=== PATIENT | female | born 1950 | race Caucasian/White ===

== ENCOUNTER → 2017-11-26 | Outpatient (CLI) | payer MEDICARE, OTHER ==
[~2017-11-26] MED LIST: ALPRAZOLAM1 MG PO; ASPIRIN CHEW81 MG PO; CIPRO500 MG PO; CRESTOR10 MG PO; DEXILANT60 MG PO; DILAUDID2 MG PO; FOSINOPRIL SODI10 MG PO; HYDROMORPHONE HC2 MG PO; LIPITOR40 MG PO; LISINOPRIL10 MG PO; LYRICA25 MG PO; MONOPRIL PO; NORCO 5-325 TA1 EACH PO; OXYCODONE HCL10 MG PO; PANTOPRAZOLE SO40 MG PO; PHENERGAN PO; PHENERGAN SUPP25 MG PO; PREVACID30 MG PO; REGLAN10 MG PO; ULTRAM50 MG PO; XANAX0.5 MG PO; XANAX2 MG PO; Z.0.GLUCOPHAGE500 MG PO
--- NOTE | 2017-11-26 12:56 | Diagnostic Imaging Report ---
EXAMINATION: Head CT HISTORY: Perfusion off, sleep walking, memory loss, COMPARISON: None. TECHNIQUE: Multidetector axial images were obtained without contrast from the foramen magnum to the vertex . The images were reconstructed using brain and bone algorithms. Thin section brain images were reformatted into coronal and sagittal planes. Intravenous contrast: None. Motion/streaking artifact limits the evaluation of the skull base and posterior cranial fossa. FINDINGS: Parenchyma: 1. A few scattered white matter hypodensities, most likely nonspecific chronic microvascular ischemic changes. 2. No mass or hemorrhage. No CT evidence of acute territorial vascular insult. Extra-axial spaces:No abnormal density. No extra-axial fluid collections Brain volume: Normal for age. Ventricles: No hydrocephalus or displacement. Arteries: No density suggestive of thrombus. Dural sinuses: No abnormal density. Extra-axial spaces: No abnormal density. Foramen magnum: No mass, Chiari malformation, or basilar invagination. Sella: No obvious mass. Paranasal/mastoid sinuses: Imaged portions unremarkable. Skull/Scalp: No lytic or blastic lesions. No fractures. IMPRESSION: Mild chronic microvascular ischemic changes. Otherwise no intracranial abnormalities, particularly no mass, hemorrhage or acute cortical infarct. Signed by: Dr. Ban Acuna M.D. on 11/26/2017 12:52 PM
== END ==
LOC: CT 11:12
PROVIDERS: ATTEND Family Medicine
DX: F22 Delusional disorders (principal); R41.0 Disorientation, unspecified
CPT/HCPCS: 70450

== ENCOUNTER → 2017-12-31 | Outpatient (CLI) | payer MEDICARE, OTHER ==
--- NOTE | 2017-12-31 08:24 | Diagnostic Imaging Report ---
PROCEDURE:US LIVER COMPARISON:12/01/2013, CT abdomen and pelvis 04/01/2015. INDICATIONS:Hepatic steatosis TECHNIQUE: Alfonso-scale and color doppler transverse and longitudinal images of the right upper quadrant of the abdomen were obtained. FINDINGS: Liver: 16.6 cm in right mid-clavicular line. Diffusely increased parenchymal echogenicity. No masses. Main portal vein: 1.5 cm in caliber, enlarged with hepatopedal flow. Gallbladder: Surgically removed. Common Bile Duct: 0.8 cm in caliber, mildly dilated, likely related to prior cholecystectomy. Right kidney: 10.9 cm. Normal renal cortical echogenicity. No solid masses or hydronephrosis. Pancreas: The visualized portions are unremarkable. Inferior vena cava: Patent Aorta: Fusiform aneurysmal dilatation of the distal abdominal aorta measuring 3.8 cm AP by 3.9 cm transverse (3.4 cm AP by 3.[address] cm transverse on comparison CT from March 2015). Ascites: None in the right upper quadrant of the abdomen. CONCLUSION: Hepatomegaly with hepatic steatosis. Mild interval increase in size of fusiform infrarenal abdominal aortic aneurysm, now measuring 3.9 cm in maximum transverse dimension. Surveillance cross-sectional imaging is suggested as indicated. Dictated by: Geovanni Mast M.D. on 12/31/2017 at 8:27 Electronically approved by: Geovanni Mast M.D. on 12/31/2017 at 8:27
== END ==
LOC: US 07:12
PROVIDERS: ATTEND Internal Medicine Gastroenterology
DX: K76.0 Fatty (change of) liver, not elsewhere classified (principal)
CPT/HCPCS: 76705

== ENCOUNTER → 2018-03-03 | Outpatient (CLI) | payer MEDICARE, OTHER ==
[~2018-03-03] MED LIST changes: +IOPAMIDOL 370 MG/ML 200 ML INFUS..BTL INJ ONE; +SODIUM CHLORIDE 0.9% 50ML 50 ML ONE
[2018-03-03 08:15] LABS: BLOOD UREA NITROGEN 13 mg/dL (7-26); BUN/CREATININE RATIO 17 (6-25); CREATININE, SERUM 0.78 mg/dL (0.57-1.11); EST GLOMERULAR FILTRATION RATE > 60 ML/MIN (60-)
--- NOTE | 2018-03-03 09:18 | Diagnostic Imaging Report ---
PROCEDURE: CT ABDOMEN AND PELVIS WITH CONTRAST TECHNIQUE: The abdomen and pelvis were scanned utilizing a multidetector helical scanner from the diaphragm to the lesser trochanter after the IV administration of 100 cc of Isovue 370 and the oral administration of water. Coronal and sagittal multiplanar reformations were obtained. COMPARISON: 05/06/2017 INDICATIONS: abdomen pain FINDINGS: LOWER THORAX: Normal. HEPATOBILIARY: No focal hepatic lesion. Hepatic parenchyma is diffusely hypoattenuating compatible with steatosis. No intrahepatic biliary ductal dilatation. Status post cholecystectomy with stable mild prominence of the common bile duct. SPLEEN: No splenomegaly. PANCREAS: No focal masses or ductal dilatation. ADRENALS: No adrenal nodules. KIDNEYS/URETERS: Stable 1.7 cm exophytic cyst arising from the upper pole of the left kidney. No additional focal renal lesion. No hydronephrosis. No calculus. PELVIC ORGANS/BLADDER: The urinary bladder is incompletely distended but otherwise unremarkable. The uterus is not identified and has presumably been removed. No adnexal mass. PERITONEUM / RETROPERITONEUM: No ascites. No pneumoperitoneum. LYMPH NODES: No pelvic sidewall, retroperitoneal, or mesenteric lymphadenopathy. VESSELS: Marginal interval increase in size of infrarenal abdominal aortic aneurysm, now measuring 4.2 cm AP by 4 cm transverse (previously 3.9 cm AP by 3.9 cm transverse). As before, the aneurysm extends to the bifurcation and measures approximately 7.3 cm in aggregate cranial caudal dimension. Concentric mural thrombus is unchanged There are 2 left renal arteries and a single right renal artery with an early bifurcation. Portal vein, splenic vein, and the central superior mesenteric vein are patent. Patent bilateral external iliac stents with extensive atherosclerotic disease. 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 Unchanged, patent superior mesenteric arterial stent. GI TRACT: The distal large bowel is collapsed and poorly evaluated. No gross wall thickening or distention. The appendix is normal. Mild prominence of the gastric rugal folds as a consequence of under distention. No small bowel dilatation to suggest obstruction. BONES AND SOFT TISSUES: No focal soft tissue abnormalities. Multiple soft tissue injection granulomata in the bilateral gluteal subcutaneous fat. Bone island in the right sacral ala. Multilevel degenerative disc changes and facet arthropathy of the lumbar spine. IMPRESSION: No acute intra-abdominal or pelvic CT abnormalities. Hepatic steatosis. Marginal interval increase in size of infrarenal abdominal aortic aneurysm, now measuring 4.1 cm in maximum diameter. Continued surveillance is suggested. Dictated by: Geovanni Mast M.D. on 03/03/2018 at 9:23 Electronically approved by: Geovanni Mast M.D. on 03/03/2018 at 9:23
== END ==
LOC: CT 07:29
PROVIDERS: ATTEND Internal Medicine Gastroenterology
DX: R10.9 Unspecified abdominal pain (principal)
CPT/HCPCS: 36415; 74177; 82565; 84520; Q9967; 76937

== ENCOUNTER 2018-04-25 08:43 | Observation (INO) | payer MEDICARE, OTHER ==
[~2018-04-25] VITALS: Ht 307.3 cm; Wt 73.5 kg
[~2018-04-25 08:43] MED LIST changes: -IOPAMIDOL 370 MG/ML 200 ML INFUS..BTL INJ ONE; -SODIUM CHLORIDE 0.9% 50ML 50 ML ONE
[2018-04-25 09:32] LABS: BASOPHILS # (AUTO) 0.1 (0.0-0.1); BASOPHILS % 0.6 % (0.0-1.0); EOSINOPHILS # (AUTO) 0.1 (0.0-0.4); EOSINOPHILS % 0.7 % (0.0-6.0); HEMATOCRIT 46.6 % (34.2-44.1); HEMOGLOBIN 15.4 g/dL (12.0-16.0); LYMPHOCYTES # (AUTO) 2.4 (1.0-3.2); LYMPHOCYTES % 25.1 % (18.0-39.1); MEAN CORPUSCULAR HEMOGLOBIN 30.4 pg (28-32); MEAN CORPUSCULAR VOLUME 91.9 fL (81-99); MONOCYTES # (AUTO) 0.8 (0.2-0.8); MONOCYTES % 8.2 % (4.4-11.3); NEUTROPHILS # (AUTO) 6.1 (2.1-6.9); NEUTROPHILS % 64.7 % (38.7-80.0); PLATELET COUNT 211 x10e3/uL (140-360); RED BLOOD COUNT 5.07 x10e6/uL (3.6-5.1); RED CELL DISTRIBUTION WIDTH 14.8 % (11.7-14.4)
[2018-04-25 09:49] LABS: INR 0.9
--- NOTE | 2018-04-25 09:50 | Diagnostic Imaging Report ---
Examination: Single AP view of the chest. COMPARISON: Multiple prior chest radiograph INDICATION: Generalized weakness and confusion, altered mental status DISCUSSION: Lines/tubes: None. Lungs: The lungs are well inflated and clear. No pneumonia or pulmonary edema. Pleura: No pleural effusion or pneumothorax. Heart and mediastinum: The heart and the mediastinum are unremarkable. Bones and soft tissues: No acute bony abnormalities. IMPRESSION: 1. No acute cardiopulmonary abnormalities. Signed by: Dr. Kenneth Wallace M.D. on 04/25/2018 9:48 AM
[2018-04-25 09:51] LABS: ALANINE AMINOTRANSFERASE 27 IU/L (0-55); ALBUMIN 4.3 g/dL (3.5-5.0); ALBUMIN/GLOBULIN RATIO 1.1 (0.8-2.0); ALKALINE PHOSPHATASE 114 IU/L (40-150); AMYLASE 38 U/L (25-125); ANION GAP 18.9 mmol/L (8-16); BLOOD UREA NITROGEN 14 mg/dL (7-26); BUN/CREATININE RATIO 11 (6-25); CALCIUM 11.5 mg/dL (8.4-10.2); CARBON DIOXIDE 26 mmol/L (22-29); CHLORIDE 97 mmol/L (98-107); CREATINE KINASE 42 IU/L (29-168); CREATININE, SERUM 1.25 mg/dL (0.57-1.11); EST GLOMERULAR FILTRATION RATE 43 ML/MIN (60-); GLUCOSE 111 mg/dL (74-118); LIPASE 20 U/L (8-78); MAGNESIUM 1.8 MG/DL (1.3-2.1); POTASSIUM 3.9 mmol/L (3.5-5.1); SODIUM 138 mmol/L (136-145)
[2018-04-25 09:59] LABS: B-TYPE NATRIURETIC PEPTIDE2 27.7 pg/mL (0-100)
[2018-04-25 10:01] LABS: PARTIAL THROMBOPLASTIN TIME 26.5 seconds (23.8-35.5)
[2018-04-25 10:11] LABS: THYROID STIMULATING HORMONE 1.836 uIU/mL (0.350-4.940)
[2018-04-25 10:56] LABS: BACTERIA,URINE MODERATE /HPF; BILIRUBIN,URINE NEGATIVE (NEGATIVE); CLARITY,URINE CLOUDY (CLEAR); COLOR,URINE YELLOW (YELLOW); EPITHELIAL CELLS,URINE MODERATE /LPF; KETONES,URINE NEGATIVE (NEGATIVE); LEUKOCYTE ESTERASE ,URINE TRACE (NEGATIVE); NITRITE,URINE NEGATIVE (NEGATIVE); PROTEIN,URINE DIPSTICK NEGATIVE (NEGATIVE); URINE UROBILINOGEN 0.2 mg/dL (0.2 - 1)
[2018-04-25 10:57] LABS: RBC,URINE 0-5 /HPF (0-5)
--- NOTE | 2018-04-25 11:19 | Diagnostic Imaging Report ---
ADDENDUM #1 The preliminary report was reviewed and a final report issued by Dr. Acuna neuroradiologist on 04/25/2018 at 12:14 PM. Signed by: Dr. Ban Acuna M.D. on 04/25/2018 12:14 PM ORIGINAL REPORT History:67-year-old female with chronic liver disease, weakness and confusion Comparison studies: 11/26/2017 Technique: Axial images were obtained from the skull base to the vertex. Coronal and sagittal images reconstructed from the axial data. Dose modulation, iterative reconstruction, and/or weight based adjustment of the mA/kV was utilized to reduce the radiation dose to as low as reasonably achievable. Intravenous contrast: None Findings: Scalp/skull: No abnormalities. Extra-axial spaces: No masses. No fluid collections. Brain sulci: Moderately prominent. Ventricles: Mild compensatory dilatation. No hydrocephalus. Parenchyma: Mild hypodensities in the supratentorial white matter are small vessel ischemic changes. No masses, hemorrhage, acute or chronic cortical vascular insults. Sellar/suprasellar region: No abnormalities. Craniocervical junction: Patent foramen magnum. No Chiari one malformation. Incidental findings: Atherosclerotic calcifications in the carotid siphons and vertebral arteries at the level of the foramen magnum . Impression: No acute abnormalities. Chronic findings: 1. Mild to moderate generalized volume loss. 2. Mild supratentorial white matter small vessel ischemic changes. Signed by: Reggie Fiore MD on 04/25/2018 11:17 AM
[2018-04-25] MEDS ORDERED: NITROFURANTOIN MACROCRYSTALS 100 MG CAP PO ONE (12:30)
[2018-04-25] MEDS: NITROFURANTOIN MACROCRYSTALS 100 MG CAP PO SCH ×2 (13:28→16:49)
[2018-04-25 14:05] VITALS: BP 171/95
[2018-04-25] MEDS ORDERED: LISINOPRIL 10 MG TAB PO SCH (15:00)
[2018-04-25] MEDS ORDERED: PROMETHAZINE HCL 25 MG TAB PO PRN (15:15)
[2018-04-25] MEDS: ONDANSETRON HCL INJ 2 MG/ML VIAL IV PRN ×2 (15:27→20:26)
[2018-04-25] MEDS: MORPHINE SULFATE 2 MG/ML SYR IV PRN ×2 (15:27→20:26)
[2018-04-25] MEDS: FOSINOPRIL SODIUM 10 MG TAB PO SCH (15:27)
[2018-04-25 16:20] VITALS: BP 179/86
[2018-04-25 16:49] VITALS: BP 156/98
[2018-04-25] MEDS: PANTOPRAZOLE SOD 40 MG TABEC PO SCH (16:49)
[2018-04-25] MEDS ORDERED: METOCLOPRAMIDE HCL 10 MG TAB PO SCH (17:00)
[2018-04-25] MEDS ORDERED: SODIUM CHLORIDE 0.9% 250ML 250 ML ONE (17:24)
[2018-04-25] MEDS: PROMETHAZINE 25MG/ NS 50ML (IV) IV PRN (17:25)
[2018-04-25] MEDS: SIMVASTATIN 40 MG TAB PO SCH (20:24)
[2018-04-25 20:36] VITALS: BP 128/67
[2018-04-25 20:54] VITALS: BP 128/67
[2018-04-26] VITALS (8 sets, daily range): BP systolic 94–110; BP diastolic 53–78
[2018-04-26] MEDS: ALPRAZOLAM 1 MG TAB PO PRN ×2 (00:35→09:20)
[2018-04-26] MEDS: MORPHINE SULFATE 2 MG/ML SYR IV PRN ×3 (02:34→23:11)
[2018-04-26] MEDS: PROMETHAZINE 25MG/ NS 50ML (IV) IV PRN ×3 (02:34→22:22)
[2018-04-26 05:42] LABS: BASOPHILS # (AUTO) 0.1 (0.0-0.1); BASOPHILS % 0.6 % (0.0-1.0); EOSINOPHILS # (AUTO) 0.1 (0.0-0.4); EOSINOPHILS % 1.2 % (0.0-6.0); HEMATOCRIT 42.5 % (34.2-44.1); LYMPHOCYTES % 44.1 % (18.0-39.1); MEAN CORPUSCULAR HEMOGLOBIN 30.6 pg (28-32); MEAN CORPUSCULAR HGB CONC 32.9 g/dL (31-35); MEAN CORPUSCULAR VOLUME 92.8 fL (81-99); MONOCYTES # (AUTO) 0.8 (0.2-0.8); MONOCYTES % 8.3 % (4.4-11.3); NEUTROPHILS # (AUTO) 4.1 (2.1-6.9); PLATELET COUNT 176 x10e3/uL (140-360); RED BLOOD COUNT 4.58 x10e6/uL (3.6-5.1); RED CELL DISTRIBUTION WIDTH 14.8 % (11.7-14.4)
[2018-04-26 05:59] LABS: ALBUMIN 3.8 g/dL (3.5-5.0); ALBUMIN/GLOBULIN RATIO 1.2 (0.8-2.0); ANION GAP 16.8 mmol/L (8-16); CALCIUM 9.6 mg/dL (8.4-10.2); CREATININE, SERUM 1.21 mg/dL (0.57-1.11); POTASSIUM 3.8 mmol/L (3.5-5.1)
[2018-04-26] MEDS ORDERED: POTASSIUM CHLORIDE 20 MEQ TAB CR PO STA (06:46)
[2018-04-26] MEDS: SODIUM CHLORIDE 0.9% 1000ML 1,000 ML IV SCH ×2 (08:00→23:11)
[2018-04-26] MEDS: PANTOPRAZOLE SOD 40 MG TABEC PO SCH ×2 (08:00→16:45)
[2018-04-26] MEDS: NITROFURANTOIN MACROCRYSTALS 100 MG CAP PO SCH ×2 (08:00→16:45)
[2018-04-26] MEDS: FOSINOPRIL SODIUM 10 MG TAB PO SCH (08:23)
[2018-04-26] MEDS ORDERED: FOSINOPRIL SODIUM 10 MG TAB PO SCH (09:00)
[2018-04-26] MEDS ORDERED: LISINOPRIL 10 MG TAB PO SCH (09:00)
[2018-04-26] MEDS: ONDANSETRON HCL INJ 2 MG/ML VIAL IV PRN (17:50)
[2018-04-26] MEDS: SIMVASTATIN 40 MG TAB PO SCH (20:07)
[2018-04-27] VITALS (8 sets, daily range): BP systolic 101–120; BP diastolic 53–61
[2018-04-27] MEDS: PROMETHAZINE 25MG/ NS 50ML (IV) IV PRN ×4 (03:28→21:37)
[2018-04-27] MEDS: MORPHINE SULFATE 2 MG/ML SYR IV PRN ×4 (03:28→21:37)
[2018-04-27] MEDS ORDERED: BISACODYL 5 MG TAB EC PO PRN (07:15)
[2018-04-27] MEDS: NITROFURANTOIN MACROCRYSTALS 100 MG CAP PO SCH ×2 (08:01→17:00)
[2018-04-27] MEDS: PANTOPRAZOLE SOD 40 MG TABEC PO SCH ×2 (08:01→16:30)
[2018-04-27] MEDS: FOSINOPRIL SODIUM 10 MG TAB PO SCH (08:02)
[2018-04-27] MEDS: ALPRAZOLAM 1 MG TAB PO PRN (08:13)
[2018-04-27] MEDS ORDERED: POLYETHYLENE GLYCOL 3350 17 GM PACK PO SCH (17:00)
[2018-04-27] MEDS: SIMVASTATIN 40 MG TAB PO SCH (20:29)
[2018-04-27] MEDS ORDERED: ALPRAZOLAM 1 MG TAB PO SCH (21:00)
[2018-04-28] VITALS: BP 112/59
[2018-04-28] MEDS: MORPHINE SULFATE 2 MG/ML SYR IV PRN ×2 (01:40→06:20)
[2018-04-28 04:00] VITALS: BP 132/71
[2018-04-28 05:40] LABS: BASOPHILS % 0.5 % (0.0-1.0); EOSINOPHILS # (AUTO) 0.1 (0.0-0.4); EOSINOPHILS % 1.4 % (0.0-6.0); HEMATOCRIT 35.5 % (34.2-44.1); HEMOGLOBIN 11.5 g/dL (12.0-16.0); LYMPHOCYTES # (AUTO) 2.4 (1.0-3.2); LYMPHOCYTES % 43.4 % (18.0-39.1); MEAN CORPUSCULAR HEMOGLOBIN 30.6 pg (28-32); MEAN CORPUSCULAR HGB CONC 32.4 g/dL (31-35); MEAN CORPUSCULAR VOLUME 94.4 fL (81-99); MONOCYTES # (AUTO) 0.4 (0.2-0.8); MONOCYTES % 7.3 % (4.4-11.3); NEUTROPHILS # (AUTO) 2.6 (2.1-6.9); NEUTROPHILS % 46.9 % (38.7-80.0); PLATELET COUNT 124 x10e3/uL (140-360); RED BLOOD COUNT 3.76 x10e6/uL (3.6-5.1); RED CELL DISTRIBUTION WIDTH 14.1 % (11.7-14.4)
[2018-04-28 06:11] LABS: ANION GAP 12.7 mmol/L (8-16); BLOOD UREA NITROGEN 9 mg/dL (7-26); BUN/CREATININE RATIO 11 (6-25); CALCIUM 8.3 mg/dL (8.4-10.2); CARBON DIOXIDE 22 mmol/L (22-29); CHLORIDE 108 mmol/L (98-107); CREATININE, SERUM 0.84 mg/dL (0.57-1.11); EST GLOMERULAR FILTRATION RATE > 60 ML/MIN (60-); GLUCOSE 122 mg/dL (74-118); POTASSIUM 3.7 mmol/L (3.5-5.1); SODIUM 139 mmol/L (136-145)
[2018-04-28] MEDS: PROMETHAZINE 25MG/ NS 50ML (IV) IV PRN (06:20)
[2018-04-28 07:40] VITALS: BP 137/91
== END 2018-04-28 09:01 | disposition home or self-care (01) ==
LOC: ER 08:43 → ERHOLD 13:00 → MED/SURG3 14:02
PROVIDERS: ADMIT Family Medicine; ATTEND Family Medicine
DX: N30.00 Acute cystitis without hematuria (principal); K59.03 Drug induced constipation; R53.1 Weakness; R11.2 Nausea with vomiting, unspecified; I12.9 Hypertensive chronic kidney disease with stage 1 through stage 4 chronic kidney disease, or unspecified chronic kidney disease; N18.3 Chronic kidney disease, stage 3 (moderate); I10 Essential (primary) hypertension; E78.00 Pure hypercholesterolemia, unspecified; E83.52 Hypercalcemia; G89.29 Other chronic pain; Z88.0 Allergy status to penicillin; Z88.8 Allergy status to other drugs, medicaments and biological substances; T40.605A Adverse effect of unspecified narcotics, initial encounter; F41.9 Anxiety disorder, unspecified; R41.82 Altered mental status, unspecified
CPT/HCPCS: 36415 ×3; 70450; 71045; 80048; 80053 ×2; 81001; 82140; 82150; 82550; 82553; 83605; 83690; 83735; 83880; 84443; 84484; 85025 ×3; 85610; 85730; 87086; 93005; 96361; 97116; 97161; 99284; G0378 ×4; G8978; G8979; G8980; J2270 ×4; J2405 ×2; J2550 ×4; J7030; J7050; S0164 ×4

== ENCOUNTER 2018-06-14 04:29 | Inpatient (IN) | payer MEDICARE, OTHER ==
[~2018-06-14] VITALS: Ht 154.9 cm; Wt 75.8 kg
--- OUTSIDE RECORDS SUMMARY | 2018-06-14 04:33 | XMS REPORT | Continuity of Care Document ---
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 Active Problem 02/13/2018 [facility] Saavedra Acute pain of left shoulder Active Problem 02/13/2018 [facility] Saavedra Nausea Active Problem 02/13/2018 Mar[facility] Saavedra NAUSEA WITH VOMITING, UNSPECIFIED Active [facility] RIGHT UPPER QUADRANT PAIN Active [facility] ABDOMINAL DISTENSION (GASEOUS) Active [facility] Medications Medication Details Route Status Patient Instructions Ordering Provider Order Date Source Tramadol HCl 2 tablet as needed Orally Active 50 MG Orally every 8 hrs Mary 02/22/2018 Marquis Saavedra Tramadol HCl 2 tablet as needed Orally Active 50 MG Orally every 8 hrs Mary 12/21/2017 Marquis Saavedra Promethazine HCl 1 tablet as needed Orally Active 25 MG Orally TID Mary 06/03/2017 Marquis Saavedra Fentanyl 1 patch to skin Transdermal Active 50 MCG/HR Transdermal Q72H Mary 03/07/2017 Marquis Saavedra Promethazine HCl 1 tablet as needed Orally Active 25 MG Orally TID Mary 03/06/2017 [facility]quis Saavedra Tramadol HCl 2 tablet as needed Orally Active 50 MG Orally every 8 hrs Mary 03/05/2017 Marquis Saavedra Tramadol HCl 1 tablet as needed Orally Active 50 MG Orally every 6 hrs Mary 12/23/2016 Marquis Saavedra Fentanyl 1 patch to skin Transdermal Active 25 MCG/HR Transdermal Mary 12/23/2016 Marquis Saavedra Dexilant 1 capsule Orally Active 60 MG Orally Once a day [facility] Marquis Saavedra Fosinopril Sodium 1 tablet Orally Active 10 MG Orally Once a day [facility] Marquis Saavedra Xanax 1 tablet Orally Active 1 MG Orally Twice a day [facility] Marquis Saavedra Promethazine HCl 1 tablet as needed Orally Active 12.5 MG Orally daily [facility] Marquis Saavedra Promethazine HCl 1 tablet as needed Orally Active 25 MG Orally TID [facility] Marquis Saavedra Tramadol HCl 1 tablet as needed Orally Active 50 MG Orally every 6 hrs [facility] Marquis Saavedra Atorvastatin Calcium 1 tablet Orally Active 40 MG Orally Once a day [facility] Marquis Saavedra Phenergan 1 tablet as needed Orally Active 25 MG Orally TID [facility] Marquis Saavedra Fentanyl 1 patch to skin Transdermal Active 50 MCG/HR Transdermal Q72H [facility] Marquis Saavedra Fosinopril Sodium 1 tablet Orally Active 10 MG Orally Once a day [facility] Marquisdaisy Saavedra Dexilant 1 capsule Orally Active 60 MG Orally Once a day [facility] Marquisdaisy Saavedra Promethazine HCl 1 tablet as needed Orally Active 12.5 MG Orally daily [facility] Marquis Saavedra Fentanyl 1 patch to skin Transdermal Active 50 MCG/HR Transdermal Q72H [facility] Marquis Saavedra Xanax 1 tablet Orally Active 1 MG Orally Twice a day [facility] Marquis Saavedra Atorvastatin Calcium 1 tablet Orally Active 40 MG Orally Once a day [facility] Marquis Saavedra Tramadol HCl 2 tablet as needed Orally Active 50 MG Orally every 8 hrs [facility] Marquis Lewer Dilaudid 1 tablet as needed Orally Active 4 MG Orally every 6 hrs [facility] Marquis Saavedra Oxycodone HCl 1 tablet as needed Orally Active 10 MG Orally every 8 hrs PRN [facility] Marquis Saavedra Promethazine HCl 1 tablet as needed Orally Active 25 MG Orally every 12 hrs [facility] Marquis Saavedra Allergies, Adverse Reactions, Alerts Substance Category Reaction Severity Reaction type Status Date Reported Comments Source PENICILLEN Adverse Reaction anaphylaxis Adverse Reaction Active 10/22/2017 Mar[facility] Saavedra KEFLEX Adverse Reaction anaphylaxis Adverse Reaction Active 10/22/2017 [facility] Sa[facility] Immunizations Immunization Date Given Site Status Last Updated Comments Source Results Order Name Results Value Reference Range Date Interpretation Comments Source Abdomen/Pelvis CTA Abdomen/Pelvis CTA Patient Name: KATELYNN BECKMAN : 1950; Age: 67 years Female MR: [id number] Study: Abdomen/Pelvis CTA 05/11/2018 6:58 AM CDT CLINICAL INDICATION: - K75.81 Nonalcoholic steatohepatitis (VARELA); R14.0 Abdominal distension (gaseous); R10.11 Right upper quadrant pain COMPARISON: CT on 02/06/2015 TECHNIQUE: Multidetector CTA imaging of the abdomen and pelvis WITH IV contrast. Coronal and sagittal reconstructions were generated and reviewed. 3-D postprocessing reformations were also obtained. CT imaging performed at this location utilizes radiation dose optimization techniques which include one or more of the following: -Automated exposure control -Adjustment of the mA and/or kV according to patient size -Use of iterative reconstruction technique Radiation dose: 1108 mGycm IV contrast: 100 cc of Omnipaque 350 FINDINGS: Vascular: Moderate aortoiliac atherosclerosis. Fusiform infrarenal abdominal aortic aneurysm, measuring 4.1 x 4 cm in maximum dimension and containing concentric mural thrombus. The aneurysm extends approximately 7.3 cm in craniocaudal dimension and terminates at the iliac bifurcation. The celiac artery is widely patent. The superior mesenteric artery stent is patent as well as the distal SMA branches. The PARUL is excluded by the aneurysm. Three left and two right renal arteries appear patent. High-grade focal stenosis and nonflow-limiting intimal flap within the proximal left common iliac artery. The bilateral iliac artery stents are patent. Lower thorax: Clear. Hepatobiliary: Nodular liver contour with relative hypertrophy of the left hepatic lobe. Subtle hypervascular lesion (8 mm) within hepatic segment 5 (image 98) without clear washout on the delayed phase. Dilated main portal vein (18 mm) and few perisplenic varices. Cholecystectomy. Pancreas: No focal mass or ductal dilatation. Spleen: No splenomegaly. Adrenals: No nodules. Kidneys: No hydronephrosis or renal stones. Stable bilateral renal cysts. Pelvic organs: Absent uterus. Unremarkable bladder. Peritoneum/Retroperitoneum: No free air or free fluid. Lymph nodes: No lymphadenopathy. GI: No significant bowel thickening or dilatation. Few sigmoid diverticula. The appendix appears unremarkable. Bones and soft tissues: Degenerative changes of the lumbar spine. IMPRESSION: Infrarenal abdominal aortic aneurysm (4.1 x 4 cm) extends approximately 7.3 cm in craniocaudal dimension and terminates at the iliac bifurcation. High-grade focal stenosis and nonflow-limiting intimal flap within the proximal left common iliac artery. Patent SMA and bilateral iliac artery stents. Cirrhosis associated with a dilated main portal vein and few perisplenic varices. Subcentimeter hypervascular lesion within hepatic segment 5 raises the possibility of hepatocellular carcinoma although no clear washout is seen on the delayed phase. Other considerations would include a small arteriovenous or perfusion anomaly. Recommend MRI liver protocol for further characterization. SL: [id number] 05/11/2018 - - Read by: Anjel Anguiano MD Dictated Date/time: 05/11/18 08:58 Electronically Signed by: Anjel Anguiano MD 05/11/18 09:14 FINAL REPORT [facility] Abdomen w IV contrast CT Abdomen w IV contrast CT CT abdomen with IV contrast, Feb 06, 2015 02:21:14 PM CLINICAL HISTORY: Abdominal pain; 571.5 Cirrhosis of Liver without Mention of Alcohol ; See Clinic Indication TECHNIQUE: Routine 5 mm thick axial images of the abdomen are obtained with oral and IV contrast. Routine 5 minute delayed images were obtained. Coronal and sagittal reformations were created. COMPARISON: None FINDINGS: Visualized lung bases are clear. Mild diffuse fatty infiltration of liver with early mild nodular contour to the liver is present. Spleen, pancreas, adrenal glands, and kidneys are normal. Couple of small left renal cysts are present. The ureters are unremarkable. Partially distended bladder is unremarkable. Gallbladder is surgically absent. Few distal left colonic diverticula are present. Otherwise, the stomach and visualized intestine loops are grossly unremarkable. No free air or free fluid is visualized within the abdominal cavity. No mesenteric or retroperitoneal lymphadenopathy is present. Distal abdominal aortic mild aneurysm measuring 3.5 cm is present, with moderate circumferential mixed plaque formation, but which creates a less than 25% short segment endoluminal stenosis. SMA proximal stent is present. Left common iliac to external iliac arterial stent is present. Bones are unremarkable. IMPRESSION: 1. Mild diffuse fatty infiltration with possible early cirrhosis. 2. Mild distal left colonic diverticulosis. SL: 14 02/06/2015 - - Read by: Hemant Nichols MD Dictated Date/time: 02/06/15 16:52 Electronically Signed by: Hemant Nichols MD 02/06/15 16:59 FINAL REPORT [facility] Vital Signs Vital Sign Value Date Comments Source Weight 149 10/22/2017 [facility]ra Height 60 10/22/2017 [facility] Saavedra Temperature Oral (F) 97.4 F 10/22/2017 Mar[facility] Saavedra Heart Rate 72 10/22/2017 Mar[facility] Saavedra Diastolic (mm Hg) 80 10/22/2017 Mar[facility] Saavedra Systolic (mm Hg) 150 10/22/2017 [facility] Saavedra Weight 146 07/23/2017 Mar[facility] Saavedra Height 60 07/23/2017 [facility] Saavedra Temperature Oral (F) 98.2 F 07/23/2017 [facility] Saavedra Heart Rate 84 07/23/2017 Mar[facility] Saavedra Diastolic (mm Hg) 80 07/23/2017 Marquis Saavedra Systolic (mm Hg) 142 07/23/2017 [facility] Saavedra Weight 150.7 03/05/2017 [facility] Saavedra Height 60 03/05/2017 [facility] Saavedra Temperature Oral (F) 97.8 F 03/05/2017 [facility] Saavedra Heart Rate 76 03/05/2017 [facility] Saavedra Diastolic (mm Hg) 80 03/05/2017 Marquis Saavedra Systolic (mm Hg) 132 03/05/2017 [facility] Saavedra Weight 147.5 02/05/2017 [facility] Saavedra Height 60 02/05/2017 Marquis Saavedra Temperature Oral (F) 98.5 F 02/05/2017 [facility] Saavedra Diastolic (mm Hg) 74 02/05/2017 Mar[facility] Saavedra Systolic (mm Hg) 142 02/05/2017 [facility] Saavedra Weight 143 12/23/2016 Marquis Saavedra Height 60 12/23/2016 Marquis Saavedra Temperature Oral (F) 97.5 F 12/23/2016 Marquis Saavedra Heart Rate 84 12/23/2016 Marquis Saavedra Diastolic (mm Hg) 74 12/23/2016 Marquis Saavedra Systolic (mm Hg) 122 12/23/2016 Marquis Saavedra Weight 152.7 08/28/2016 Marquis Saavedra Height 60 08/28/2016 Marquis Saavedra Temperature Oral (F) 97.5 F 08/28/2016 Marquis Saavedra Diastolic (mm Hg) 60 08/28/2016 Marquis Saavedra Systolic (mm Hg) 100 08/28/2016 Marquis Saavedra Encounters Location Location Details Encounter Type Encounter Number Reason For Visit Attending Provider ADM Date DC Date Status Source [facility] [id number] Malick Mathew 02/06/2015 02/07/2015 [facility] Mauro Saavedra MD [facility] [id number] 08/28/2016 08/28/2016 Marquis Saavedra Procedures Procedure Code Date Perfomer Comments Source
--- OUTSIDE RECORDS SUMMARY | 2018-06-14 04:33 | XMS REPORT | Summary of Care ---
Author Organization Unknown Address Unknown Phone Unavailable Encounter [facility] Encntr_alias(GARCÍA) [id number] Date(s): 02/06/15 - 02/06/15 [facility] [address] [place] [address]- Discharge Disposition: Home Physician Attending: Malick Mathew MD Physician Admitting: Malick Mathew MD Physician_Referring: Malick Mathew MD Vital Signs No data available for this section Problem List No data available for this section Allergies, Adverse Reactions, Alerts No data available for this section Medications No data available for this section Results No data available for this section Immunizations No data available for this section Procedures No data available for this section Social History No data available for this section Assessment and Plan No data available for this section
[2018-06-14] MEDS ORDERED: ONDANSETRON HCL INJ 2 MG/ML VIAL IV STA (04:38)
[2018-06-14] MEDS ORDERED: SODIUM CHLORIDE 0.9% 1000ML 1,000 ML IV ONE (04:45)
[2018-06-14 05:30] LABS: BASOPHILS % 0.4 % (0.0-1.0); EOSINOPHILS % 0.2 % (0.0-6.0); HEMATOCRIT 44.4 % (34.2-44.1); HEMOGLOBIN 14.8 g/dL (12.0-16.0); LYMPHOCYTES # (AUTO) 1.4 (1.0-3.2); LYMPHOCYTES % 15.2 % (18.0-39.1); MEAN CORPUSCULAR HEMOGLOBIN 30.2 pg (28-32); MEAN CORPUSCULAR HGB CONC 33.3 g/dL (31-35); MEAN CORPUSCULAR VOLUME 90.6 fL (81-99); MONOCYTES # (AUTO) 0.4 (0.2-0.8); MONOCYTES % 4.1 % (4.4-11.3); NEUTROPHILS # (AUTO) 7.4 (2.1-6.9); NEUTROPHILS % 79.5 % (38.7-80.0); PLATELET COUNT 164 x10e3/uL (140-360); RED CELL DISTRIBUTION WIDTH 12.6 % (11.7-14.4)
[2018-06-14 05:35] LABS: CLARITY,URINE SL CLOUDY (CLEAR); COLOR,URINE YELLOW (YELLOW); LEUKOCYTE ESTERASE ,URINE TRACE (NEGATIVE); NITRITE,URINE NEGATIVE (NEGATIVE); PROTEIN,URINE DIPSTICK NEGATIVE (NEGATIVE)
[2018-06-14 05:36] LABS: BILIRUBIN,URINE NEGATIVE (NEGATIVE); KETONES,URINE NEGATIVE (NEGATIVE); URINE UROBILINOGEN 0.2 mg/dL (0.2 - 1)
[2018-06-14 05:48] LABS: BACTERIA,URINE MANY /HPF; WBC,URINE (MAN) 0-5 /HPF (0-5)
[2018-06-14 05:49] LABS: ALANINE AMINOTRANSFERASE 22 IU/L (0-55); ALBUMIN 4.2 g/dL (3.5-5.0); ALKALINE PHOSPHATASE 86 IU/L (40-150); AMYLASE 86 U/L (25-125); ANION GAP 20.6 mmol/L (8-16); BLOOD UREA NITROGEN 6 mg/dL (7-26); BUN/CREATININE RATIO 8 (6-25); CALCIUM 10.5 mg/dL (8.4-10.2); CARBON DIOXIDE 23 mmol/L (22-29); CHLORIDE 99 mmol/L (98-107); CREATINE KINASE 80 IU/L (29-168); CREATININE, SERUM 0.74 mg/dL (0.57-1.11); EST GLOMERULAR FILTRATION RATE > 60 ML/MIN (60-); GLUCOSE 144 mg/dL (74-118); LIPASE 26 U/L (8-78); POTASSIUM 4.6 mmol/L (3.5-5.1); SODIUM 138 mmol/L (136-145)
[2018-06-14] MEDS ORDERED: SODIUM CHLORIDE 0.9% 50ML 50 ML ONE (06:03)
[2018-06-14] MEDS ORDERED: IOPAMIDOL 370 MG/ML 200 ML INFUS..BTL INJ ONE (06:04)
--- NOTE | 2018-06-14 06:58 | Diagnostic Imaging Report ---
EXAM: CT Abdomen and Pelvis WITH contrast INDICATION: Weakness and confusion, nausea, vomiting COMPARISON: Abdominal CT 11/26/2016 TECHNIQUE: Abdomen and pelvis were scanned utilizing a multidetector helical scanner from the lung base to the pubic symphysis after administration of IV contrast. Coronal and sagittal reformations were obtained. Routine protocol was performed. Scan was performed during portal venous phase. IV CONTRAST: 100 mL of Isovue-370 ORAL CONTRAST: Water COMPLICATIONS: None RADIATION DOSE: Total DLP: 440.4 mGy*cm Estimated effective dose: (DLP x 0.015 x size factor) mSv CTDIvol has been reviewed. It is below the limits set by the Radiation Protocol Committee (RPC). Dose modulation, iterative reconstruction, and/or weight based adjustment of the mA/kV was utilized to reduce the radiation dose to as low as reasonably achievable. FINDINGS: LINES and TUBES: None. LOWER THORAX: Coronary artery calcifications. HEPATOBILIARY: Diffuse hypoattenuation of the liver reflecting steatosis. Mildly nodular liver contour. No focal hepatic lesions. No biliary ductal dilation. GALLBLADDER: Absent. SPLEEN: Enlarged measuring 16.3 cm in length. PANCREAS: No focal masses or ductal dilatation. ADRENALS: No adrenal nodules KIDNEYS/URETERS: Kidneys enhance symmetrically. No hydronephrosis. Left superior pole 1.9 cm lesion measures greater than fluid density (31 HU), indeterminate. No stones. GI TRACT: Small hiatal hernia. No abnormal distention, wall thickening, or evidence of bowel obstruction. There are diverticula within the colon without evidence of diverticulitis. Appendix is normal. PELVIC ORGANS/BLADDER: Hysterectomy. Bladder is unremarkable. LYMPH NODES: Prominent derick hepatis nodes measuring up to 1.3 cm. VESSELS: Main portal vein is enlarged measuring 1.7 cm in diameter. Infrarenal abdominal aortic aneurysm approximately 7.8 cm in length extending to the aortic bifurcation, measuring up to 4.3 cm in diameter. Stent in the proximal superior mesenteric artery, and bilateral external iliac arteries. Diffuse vascular calcifications. PERITONEUM / RETROPERITONEUM: No free air or fluid. BONES: There are degenerative changes in the lumbar spine. SOFT TISSUES: Unremarkable. IMPRESSION: 1. No acute abnormalities in the abdomen or pelvis. 2. Mildly nodular liver contour suggestive of cirrhosis. Splenomegaly and enlarged portal vein suggest portal hypertension. 3. Abdominal aortic aneurysm measuring up to 4.3 cm in diameter, previously 3.9 cm on 12/17/2016. Signed by: DR. Shawn Brown MD on 06/14/2018 6:55 AM
[2018-06-14] MEDS: SODIUM CHLORIDE 0.9% 1000ML 1,000 ML IV SCH ×2 (07:05→11:48)
[2018-06-14 09:04] VITALS: BP 208/98
[2018-06-14 10:02] VITALS: BP 208/98
[2018-06-14 10:24] VITALS: BP 208/98
[2018-06-14] MEDS ORDERED: FENTANYL1 EAC1 (10:29)
[2018-06-14] MEDS ORDERED: OXYCODONE HCL20 M1 PO (10:29)
[2018-06-14 11:41] VITALS: BP 213/97
[2018-06-14] MEDS: METOCLOPRAMIDE HCL 10 MG/2ML VIAL IV SCH ×2 (11:48→17:00)
[2018-06-14] MEDS: ONDANSETRON HCL INJ 2 MG/ML VIAL IV PRN ×2 (11:48→17:00)
[2018-06-14] MEDS: LISINOPRIL 10 MG TAB PO SCH (12:55)
--- NOTE | 2018-06-14 13:08 | History and Physical ---
HISTORY OF PRESENT ILLNESS: A 67-year-old female comes in by ambulance for abdominal pain, intractable nausea and vomiting, and diarrhea. Patient is a frequent patient who comes to the hospital with chronic gastritis and chronic obstipation and upper GI symptoms of nausea and vomiting. Patient started this episode yesterday. At about 7 o' clock, the patient started to have intractable nausea and vomiting, could not keep anything down, she says. Now, the patient comes in with abdominal pain. The patient has no history of recent travel, no similar symptoms of this previously and has been seen by GI and pain management and is also seen by Dr. Mcnair for cardiological purposes. PAST MEDICAL HISTORY: History of coronary artery disease, history of aneurysm in the abdomen, history of hypertension, history of anxiety, history of reflux esophagitis, history of irritable bowel syndrome, history of fatty liver which has recently been diagnosed as cirrhosis and history of hypertension. SURGICAL HISTORY: Includes vaginal hysterectomy, cholecystectomy, 2 right knee replacements in 2003 and 2008, history of mass removed from the breast. MEDICATIONS: She takes at home are 1. Alprazolam 2 mg 4 times a day. 2. Dexilant 60 mg daily. 3. Fosinopril 10 mg daily. 4. She takes fentanyl patch 50 mcg. 5. Rosuvastatin 10 mg. 6. Pantoprazole 40 mg. 7. Patient also takes Phenergan and other pain medications, oxycodone which dose is unknown at this time. REVIEW OF SYSTEMS: Positive for vague chest pain. Positive for nausea, vomiting, and diarrhea. No constipation. No rectal bleeding. No hematochezia. No hematemesis. No blurry vision. No diplopia. Patient slips in and out of consciousness at this time. PHYSICAL EXAMINATION VITALS: Patient's temperature is 97.8, blood pressure is 208/98, pulse is 74, respirations 17. HEENT: Normocephalic, atraumatic. Patient is still vomiting with bilious vomitus. ABDOMEN: Tender in the epigastrium. EXTREMITIES: No clubbing. No cyanosis. No edema. CARDIOVASCULAR: S1, S2 normal. LABORATORY VALUES: White count was 9.8. Chemistries show BUN of 6, creatinine 0.77, glucose of 144, calcium of 10.5. Troponins have been negative. Amylase and lipase negative. AST and ALT normal. Urine is also normal. ASSESSMENT AND PLAN: Intractable nausea and vomiting. The patient has an appointment with cardiology tomorrow for her chest pain and also history of taking multiple pain medication and opioids and benzodiazepine. Plan is to observe her. Reglan has been started for her nausea and vomiting. Pain medication, oxycodone will be held here. We will continue with the fentanyl patch which removes tomorrow. Reglan for nausea. Further decisions per clinical course. We will continue monitoring the patient and I will also consult cardiology just in case they want to do a stress test here. Job#: [id number] ELDA
[2018-06-14] MEDS ORDERED: CLONIDINE HCL 0.1 MG TAB PO PRN (13:30)
[2018-06-14 15:41] VITALS: BP 128/79
[2018-06-14 20:00] VITALS: BP 135/74
--- NOTE | 2018-06-14 20:21 | Consultation ---
DATE OF CONSULTATION: June 14, 2018 CARDIOLOGY CONSULTATION REASON FOR CONSULTATION: Evaluate cardiac status. HISTORY OF PRESENT ILLNESS: Ms. Henderson is a 67-year-old lady who recently saw us as an outpatient clinic within the last week or so and at that time was doing well. She has a past medical history of hypertension, hypercholesterolemia, peripheral artery disease with prior history of blood revascularizations by Dr. Oglesby in the [facility], infrarenal abdominal aortic aneurysm that has been ranging in the 4 to 4.3 cm range with notable questionable luminal flap in the left common iliac artery. At baseline, patient is very relatively sedentary. She has a previous surgical history of cholecystectomy in the past. She comes in with 24-hour onset of intractable nausea, vomiting, and loose stools. At baseline, she has a history of gastritis and obstipation in the past and reports that since 7 o'clock yesterday, she is unable to keep anything down and has been having greenish and bilious type vomitus. She has been on pain management in the past and has had previous GI history in the past, irritable bowel syndrome as well as GERD. She supposedly also has a questionable history of cirrhosis. Again, the details were not very clear to us. We are here to evaluate her cardiac status. PAST MEDIAL HISTORY 1. Hypertension, essential. 2. Hypercholesterolemia. 3. Liver cirrhosis. 4. History of iliac stenting by Dr. Francisco Oglesby. 5. Infrarenal abdominal aortic aneurysm, measuring from 4 to 4.3 cm in diameter. 6. Chronic pain. 7. Anxiety. 8. Severe degenerative disk disease. 9. COPD/asthma. PAST SURGICAL HISTORY 1. History of right total knee replacement surgery. 2. History of bilateral peripheral artery stenting in the past in the lower legs. 3. Prior history of iliac stenting in the past. 4. History of tonsillectomy. 5. History of prior cholecystectomy. 6. History of hysterectomy. 7. History of prior breast mass removal. FAMILY HISTORY: Mother at 78 with congestive heart failure. Father at the age of 51, had heart disease. Has 1 sister, who is alive, had CAD and recovering from kidney cancer. SOCIAL HISTORY: She is . She is currently 1 pack every 3-day smoker. Denies any alcohol or illicit drug use. ALLERGIES: PENICILLIN CAUSES RASH, KEFLEX CAUSES RASH, AND TETRACYCLINE CAUSES RASH. MEDICATIONS: Include Crestor 10 mg daily, Protonix 40 mg daily, lisinopril 10 mg, Xanax 1 mg p.o. b.i.d. p.r.n., Phenergan 25 mg q.6 hours p.r.n., fentanyl patch 50 mcg daily, oxycodone 5 mg q.6 hours p.r.n. REVIEW OF SYSTEMS GENERAL: Denies any fevers, chills, has poor exercise tolerance and fair general state of health. No weight changes. HEENT: No headaches, visual complaints, sore throat, stuffy nose. RESPIRATORY: Denies any pleuritic chest pain. Has chronic class III dyspnea. CARDIOVASCULAR: Possible for easy fatigue. Has occasional vague chest discomfort from [id number]. Has dyspnea on exertion with minimal activity. No orthopnea, PND. Denies any subjective palpitations. GI: Positive for abdominal pain, nausea, vomiting as per HPI. Denies any blood per rectum, melena, hematemesis. HEMATOLOGY: Denies any easy bruising or bleeding. : Denies any polyuria or urinary incontinence. MUSCULOSKELETAL: Has lower back pain. Has pains and leg weakness. Denies any leg swelling. SKIN: No rashes or breakdown. NEUROLOGIC: No gait abnormalities, weakness, tingling, seizures. PSYCH: Normal mood. Positive for anxiety. No depression. Remainder of review of systems is negative otherwise mentioned. PHYSICAL EXAMINATION VITAL SIGNS: Height of 61 inches, weight of 162 pounds, BMI is 30.7. Blood pressure was 208/98, pulse of 75, respiratory rate 17, O2 sat 98% on room air. GENERAL: This is a well-nourished, well-developed lady who is currently sleeping in bed, is in no distress. HEENT: Normocephalic, atraumatic. Pupils equal, round, and reactive to light. Extraocular movements are intact. Oropharynx is clear. NECK: No elevation of jugular venous pulsation. There is faint left carotid bruit. CARDIOVASCULAR: Regular rate and rhythm. Normal S1, S2, soft, 3/6 systolic murmur in left lower sternal border. LUNGS: Show poor airflow and diminished air entry compatible with COPD type changes. ABDOMEN: Soft, nontender, nondistended with hyperactive bowel sounds. There is no hepatosplenomegaly. BACK: No costovertebral angle tenderness. EXTREMITIES: Warm with 1 to 2+ bilateral femoral pulses and some pedal pulses. NEUROLOGIC: She is alert and oriented. Cranial nerves II through XII are grossly intact. Strength is preserved. PSYCH: Normal fluent speech. Appropriate affect. No anxiety or delusions. LABS: White count of 9.3, hemoglobin 14.8, hematocrit 44.4, platelets of 164. Sodium 138, potassium 4.6, chloride 99, bicarb 23, BUN 6, creatinine 0.74, glucose 144, calcium of 10.5, AST 33, ALT 22, alk phos 76, total protein of 8.4, albumin of 4.2, lipase of 26, amylase of 86. Troponin is less than 0.001. UA is unremarkable. Abdomen and pelvis CT that was done shows a 4.3-cm infrarenal abdominal aortic aneurysm with notable stent in the proximal superior mesenteric artery and bilateral external iliac arteries and vascular calcification along with a mildly nodular liver suggestive of cirrhosis, splenomegaly and large portal vein. DIAGNOSES 1. Intractable nausea, vomiting with bilious type output. 2. History of infrarenal abdominal aortic aneurysm in the process of being evaluated for endovascular repair. 3. High pretest probability of coronary artery disease. 4. Hypertension, essential. 5. Hypercholesterolemia. 6. Peripheral artery disease with prior history of multiple lower extremity revascularizations. 7. Chronic obstructive pulmonary disease/smoker. PLAN/RECOMMENDATIONS 1. From a cardiovascular standpoint, we will monitor her now and observe her GI status. 2. We will place her on p.o. and IV antihypertensive therapy and monitor her GI status. 3. Agree with Reglan and PPI home medication. 4. Infrarenal abdominal aortic aneurysm. Do not believe her symptom is related to any complication related to that process. Of note, we are in the process of taking her last abdominal imaging study for evaluation for endovascular therapeutic options. 5. Again, we counseled her on the importance of smoking cessation. 6. We will continue to monitor her status. Job#: [id number] HUGH
[2018-06-15] VITALS (9 sets, daily range): BP systolic 106–170; BP diastolic 64–84
[2018-06-15] MEDS: METOCLOPRAMIDE HCL 10 MG/2ML VIAL IV SCH ×3 (00:32→12:00)
[2018-06-15] MEDS: SODIUM CHLORIDE 0.9% 1000ML 1,000 ML IV SCH (00:32)
[2018-06-15] MEDS: ONDANSETRON HCL INJ 2 MG/ML VIAL IV PRN ×2 (01:00→06:26)
[2018-06-15 05:35] LABS: BASOPHILS % 0.3 % (0.0-1.0); EOSINOPHILS # (AUTO) 0.1 (0.0-0.4); EOSINOPHILS % 0.5 % (0.0-6.0); HEMATOCRIT 41.1 % (34.2-44.1); HEMOGLOBIN 13.9 g/dL (12.0-16.0); LYMPHOCYTES # (AUTO) 2.2 (1.0-3.2); LYMPHOCYTES % 22.5 % (18.0-39.1); MEAN CORPUSCULAR HEMOGLOBIN 30.5 pg (28-32); MEAN CORPUSCULAR HGB CONC 33.8 g/dL (31-35); MEAN CORPUSCULAR VOLUME 90.1 fL (81-99); MONOCYTES # (AUTO) 0.7 (0.2-0.8); MONOCYTES % 7.5 % (4.4-11.3); NEUTROPHILS # (AUTO) 6.7 (2.1-6.9); NEUTROPHILS % 68.5 % (38.7-80.0); PLATELET COUNT 191 x10e3/uL (140-360); RED BLOOD COUNT 4.56 x10e6/uL (3.6-5.1)
[2018-06-15 06:01] LABS: ALANINE AMINOTRANSFERASE 18 IU/L (0-55); ALBUMIN 3.6 g/dL (3.5-5.0); ALBUMIN/GLOBULIN RATIO 1.1 (0.8-2.0); ALKALINE PHOSPHATASE 76 IU/L (40-150); ANION GAP 9.6 mmol/L (8-16); BLOOD UREA NITROGEN 8 mg/dL (7-26); BUN/CREATININE RATIO 10 (6-25); CALCIUM 8.4 mg/dL (8.4-10.2); CARBON DIOXIDE 28 mmol/L (22-29); CHLORIDE 104 mmol/L (98-107); CREATININE, SERUM 0.81 mg/dL (0.57-1.11); EST GLOMERULAR FILTRATION RATE > 60 ML/MIN (60-); GLUCOSE 125 mg/dL (74-118); POTASSIUM 3.6 mmol/L (3.5-5.1); SODIUM 138 mmol/L (136-145)
[2018-06-15] MEDS ORDERED: MORPHINE SULFATE 2 MG/ML SYR ONE (06:19)
[2018-06-15] MEDS ORDERED: MORPHINE SULFATE 2 MG/ML SYR IV PRN (06:30)
[2018-06-15] MEDS ORDERED: MORPHINE SULFATE INJ 4 MG/ML INJ IV PRN (06:30)
[2018-06-15] MEDS ORDERED: KCL 20MEQ/.9 SOD CHL 1,000 ML IV SCH (07:30)
--- NOTE | 2018-06-15 07:42 | Progress Note ---
DATE: Patient came for intractable nausea and vomiting. Currently, the patient is not nauseous. Being given Phenergan and Zofran intermittently. Pain is controlled with her fentanyl patch and also with morphine. The patient is complaining of some abdominal pain. PHYSICAL EXAMINATION VITALS: Temperature is 99, blood pressure is 157/77, respirations of 18, pulse of 83, pulse ox of 96%. HEENT: Normocephalic and atraumatic. Pupils reactive to light and accommodation. Anicteric. CV: S1 and S2 normal. Regular rate and rhythm. ABDOMEN: Tender in the epigastric area in the right upper quadrant. EXTREMITIES: No clubbing. No cyanosis. No edema. LABORATORY VALUES: White count is normal. Hemoglobin is normal. Hematocrit is normal. Chemistry: Sodium 133, glucose is 125. AST and ALT normal. Amylase and lipase has been normal. ASSESSMENT: Intractable nausea and vomiting. The patient is to be kept n.p.o. today. Will give her intravenous fluids. Also, will start her on Phenergan before pain medication. We have given her morphine 2 mg q.6 h. and also will restart her fentanyl patch today. Will hold off on oxycodone and also any medicines given orally. Sips of water. Will start her on Protonix drip. Also, give her intravenous Protonix. Will keep her n.p.o. today and tomorrow. Will see how the progression is. Further recommendations per clinical course. Will to continue to monitor the patient. FINAL DIAGNOSES 1. Intractable nausea and vomiting. 2. Cirrhosis of the liver. 3. History of constipation. 4. Chronic pain syndrome. 5. Hypertension. For further information, look in the chart. Will continue monitoring the patient. Job#: [id number] DC
[2018-06-15] MEDS: LISINOPRIL 10 MG TAB PO SCH (09:00)
[2018-06-15] MEDS ORDERED: FENTANYL 50 MCG/HR PATCH TD SCH (09:00)
[2018-06-15] MEDS: POTASSIUM CHLORIDE 10 MEQ in SODIUM CHLORIDE 0.9% 1000ML 1,000 ML IV SCH ×2 (10:28→16:03)
[2018-06-15] MEDS: PANTOPRAZOLE INJ 40 MG in SODIUM CHLORIDE 0.9% 50ML 50 ML IV SCH ×4 (10:28→23:15)
[2018-06-15] MEDS: HYDRALAZINE HCL 20 MG/ML VIAL IV PRN (11:35)
[2018-06-15] MEDS: PROMETHAZINE 12.5MG/ NACL 0.9% 12.5 MG/50 ML BAG IV PRN ×2 (12:20→21:18)
[2018-06-15] MEDS: MORPHINE SULFATE 2 MG/ML SYR IV PRN ×2 (15:21→21:21)
[2018-06-16] VITALS: BP 136/68
[2018-06-16] MEDS: MORPHINE SULFATE 2 MG/ML SYR IV PRN (01:32)
[2018-06-16 04:00] VITALS: BP 141/71
[2018-06-16] MEDS: PANTOPRAZOLE INJ 40 MG in SODIUM CHLORIDE 0.9% 50ML 50 ML IV SCH ×2 (04:45→08:36)
[2018-06-16] MEDS: PROMETHAZINE 12.5MG/ NACL 0.9% 12.5 MG/50 ML BAG IV PRN (05:15)
[2018-06-16] MEDS: POTASSIUM CHLORIDE 10 MEQ in SODIUM CHLORIDE 0.9% 1000ML 1,000 ML IV SCH (06:24)
--- NOTE | 2018-06-16 07:22 | Progress Note ---
DATE: This patient came in with abdominal pain and intractable nausea, vomiting and diarrhea. Currently, the patient was kept n.p.o. Did very well yesterday. Pain medications were given. The patient is back on a fentanyl patch for chronic pain syndrome. Currently, no nausea and no diarrhea. The patient is on a pantoprazole drip and morphine 2 mg q.4 h. for pain. Her fentanyl patch has been restarted. The patient is also on Phenergan as needed for nausea. PHYSICAL EXAMINATION GENERAL: Alert and oriented times 3. Pleasant. HEENT: Normocephalic and atraumatic. There is no icterus present. CV: S1 and S2 normal. Regular rate and rhythm. ABDOMEN: Nontender and nondistended. Positive for bowel sounds. EXTREMITIES: No clubbing. No cyanosis. No edema. LABS: From today, BUN of 8, creatinine 0.81. Hemoglobin 13.1, hematocrit 41. T. bili, ALT, AST are all normal. ASSESSMENT: Intractable nausea and vomiting, resolving. The patient is to be started on a soft mechanical diet today, and can be discharged home. For her intractable nausea and vomiting, continue the patient on Phenergan, which she has at home. For pain medications, she is on a fentanyl patch and also on oxycodone at home. RECOMMENDATION: Decrease the amount of oxycodone to avoid constipation and small-bowel obstruction. Increase the fluid intake. The patient will be discharged home on all her home medications. For further information, look in the chart. Job#: [id number] MERCEDES
[2018-06-16 08:20] VITALS: BP 185/84
[2018-06-16] MEDS: HYDRALAZINE HCL 20 MG/ML VIAL IV PRN (08:43)
[2018-06-16] MEDS ORDERED: FOSINOPRIL SODIUM 10 MG TAB PO SCH (09:00)
== END 2018-06-16 10:37 | disposition home or self-care (01) | DRG 392 ==
LOC: ER 04:29 → ERHOLD 07:05 → IMCU 08:46 → OBSVTOIN 06-15 07:18
PROVIDERS: ADMIT Family Medicine; ATTEND Family Medicine
DX: K29.70 Gastritis, unspecified, without bleeding (principal); I25.10 Atherosclerotic heart disease of native coronary artery without angina pectoris; I71.4 Abdominal aortic aneurysm, without rupture; K58.9 Irritable bowel syndrome, unspecified; K74.60 Unspecified cirrhosis of liver; I10 Essential (primary) hypertension; E78.5 Hyperlipidemia, unspecified; J44.9 Chronic obstructive pulmonary disease, unspecified; F41.9 Anxiety disorder, unspecified; I73.9 Peripheral vascular disease, unspecified; J45.909 Unspecified asthma, uncomplicated; G89.4 Chronic pain syndrome; Z79.899 Other long term (current) drug therapy
CPT/HCPCS: 36415; 74177; 80053; 81001; 82150; 82550; 82553; 83690; 84484; 85025; 99285; G0378; J0360; J2270; J2405; J2550; J2765; J3480; J7030; Q9967

== ENCOUNTER → 2018-07-06 | Outpatient (CLI) | payer MEDICARE, OTHER ==
[~2018-07-06] MED LIST changes: +FENTANYL1 EAC1; +GADOBENATE DIMEGLUMINE 1 ML IV ONE; +OXYCODONE HCL20 M1 PO
--- NOTE | 2018-07-07 08:16 | Diagnostic Imaging Report ---
EXAM: MRI of the abdomen with and without contrast. INDICATION: Cirrhosis. COMPARISON: CT abdomen/pelvis dated 06/14/2018. TECHNIQUE: Multiplanar and multisequence imaging was performed of the abdomen. T1 and T2-weighted images were obtained with and without contrast. T1-weighted in and [id number] , Dynamic, post gadolinium T1-weighted spoiled gradient echo scans. IV Contrast: 14 cc of MultiHance gadolinium Oral Contrast: None. Medications: None DISCUSSION: LOWER THORAX: Unremarkable. HEPATOBILIARY: Loss of signal on out of phase images, representing hepatic steatosis. Mildly nodular hepatic contour. No focal hepatic lesions. No biliary ductal dilation. GALLBLADDER: Surgically absent. SPLEEN: Splenomegaly measuring approximately 15.7 cm. PANCREAS: No focal masses or ductal dilatation. ADRENALS: No adrenal nodules KIDNEYS/URETERS: Kidneys enhance symmetrically. No hydronephrosis. 1.9 cm partially exophytic left midpole and 1.3 cm left inferior pole cysts. There are additional subcentimeter left renal cysts. No renal mass. GI TRACT: Visualized bowel loops are unremarkable. No evidence of bowel obstruction. LYMPH NODES: No lymphadenopathy. VESSELS: Dilated portal vein measuring 1.7 cm. Artifact from the stent in the proximal superior mesenteric artery. Again seen infrarenal abdominal aortic aneurysm, measuring 4.3 cm. PERITONEUM / RETROPERITONEUM: No free air or fluid. BONES: Unremarkable. SOFT TISSUES: Unremarkable. IMPRESSION: Mild cirrhotic changes of the liver with signs of portal hypertension. No focal mass. Hepatic steatosis. Unchanged infrarenal abdominal aortic aneurysm, measuring 4.3 cm. Left renal cysts. Signed by: Dr. Jacoby Garzon MD on 07/07/2018 8:12 AM
== END ==
LOC: MRI 16:58
PROVIDERS: ATTEND Family Medicine
DX: D37.6 Neoplasm of uncertain behavior of liver, gallbladder and bile ducts (principal)
CPT/HCPCS: 74183

== ENCOUNTER 2018-10-26 02:41 | Inpatient (IN) | payer MEDICARE, OTHER ==
[~2018-10-26] VITALS: Ht 154.9 cm; Wt 72.6 kg
[~2018-10-26 02:41] MED LIST changes: -FENTANYL1 EAC1; +FENTANYL1 EAC1 TOP; -GADOBENATE DIMEGLUMINE 1 ML IV ONE
[2018-10-26] MEDS ORDERED: ALPRAZOLAM1 MG PO ×2 (02:47)
[2018-10-26] MEDS ORDERED: METOPROLOL TART25 MG PO (02:47)
--- OUTSIDE RECORDS SUMMARY | 2018-10-26 02:47 | XMS REPORT | Clinical Summary ---
Author Author Yosef Faith Organization [facility] Address Unknown Phone Unavailable Care Team Providers Care Equine Dentist Name Role Phone Asked, No Pcp PCP Unavailable Allergies Comments Active Allergy Reactions Severity Noted Date Cephalexin 08/18/2018 blisters Penicillins 08/18/2018 blisters Tetracyclines 08/18/2018 Medications End Date Status Medication Sig Dispensed Refills Start Date Active ALPRAZolam (XANAX) 1 MG Take 2 mg by 0 tablet mouth 2 (two) times a day. Active fentaNYL (DURAGESIC) 50 Place 1 patch 0 mcg/hr on the skin every third day. Active rosuvastatin (CRESTOR) 40 Take 40 mg by 0 MG tablet mouth daily. Active oxyCODone (ROXICODONE) 5 Take 5 mg by 0 MG immediate release mouth 2 (two) tablet times a day as needed for moderate pain. Active fosinopril (MONOPRIL) 10 Take 10 mg by 0 MG tablet mouth daily. Active metoprolol tartrate Take 25 mg by 0 (LOPRESSOR) 25 mg tablet mouth 2 (two) times a day. Active omeprazole (PriLOSEC) 40 Take 40 mg by 0 MG capsule mouth daily. Active promethazine (PHENERGAN) Take 25 mg by 0 25 MG tablet mouth every 6 (six) hours as needed for nausea or vomiting. Active aspirin (ECOTRIN) 81 MG Take 81 mg by 0 enteric coated tablet mouth daily. Active MOVANTIK 25 mg tablet TK 1 T PO QD 0 tablet IN THE 8 MORNING 09/19/2018 clopidogrel (PLAVIX) 75 Take 1 tablet 30 tablet 0 08/20/201 mg tablet (75 mg total) 9 by mouth daily for 30 days. Active Problems Problem Noted Date Angina of effort 08/19/2018 Encounters Care Team Description Date Type Specialty Francisco Oglesby MD CV LEFT HEART CATH LV GRAM WITH CORS [[id number] (CPT)] 08/19/2018 Surgery Procedural Cardiology Francisco Oglesby MD Angina of effort (HCC); Atherosclerosis of [place] artery of both lower extremities with intermittent claudication (HCC) 08/19/2018 Hospital Cardiology - Encounter 08/20/2018 after 10/25/2017 Social History Date Tobacco Use Types Packs/Day Years Used Current Every Day Smoker Cigarettes 0.25 Smokeless Tobacco: Never Used Alcohol Use Drinks/Week oz/Week Comments No Alcohol Habits Answer Date Recorded How often do you have a drink containing alcohol? Never 08/18/2018 How many drinks containing alcohol do you have on Not asked a typical day when you are drinking? How often do you have six or more drinks on one Not asked occasion? Sex Assigned at Date Recorded Not on file Industry Job Start Date Occupation Not on file Not on file Not on file Travel End Travel History Travel Start No recent travel history available. Last Filed Vital Signs Time Taken Vital Sign Reading 08/20/2018 8:30 AM SECURITY ADVISOR Blood Pressure 156/67 08/20/2018 8:30 AM SECURITY ADVISOR Pulse 60 08/20/2018 4:00 AM SECURITY ADVISOR Temperature 35.9 C (96.6 F) 08/20/2018 4:00 AM SECURITY ADVISOR Respiratory Rate 24 08/20/2018 8:30 AM SECURITY ADVISOR Oxygen Saturation 93% - Inhaled Oxygen - Concentration 08/19/2018 7:13 AM SECURITY ADVISOR Weight 75.5 kg (166 lb 6.4 oz) 08/19/2018 7:13 AM SECURITY ADVISOR Height 154.9 cm (5' 1") 08/19/2018 7:13 AM SECURITY ADVISOR Body Mass Index 31.44 Plan of Treatment Not on file Implants Device Identifier Shelf Expiration Date Model / Serial / Lot Implanted Type Area Manufactur er [id number] / / Stent System 3.0 X 26mm Resolute Coronary N/A: N/A [employer] Cascade Otw Coronary - [id number] Stents [place] - Implanted: 08/19/2018 (Quantity not CARDIAC on file) RYHTYM MGMT Procedures Comments Procedure Name Priority Date/Time Associated Diagnosis HC COMPLETE BLD COUNT Routine 08/20/2018 W/AUTO DIFF 4:50 AM SECURITY ADVISOR ECG PRE/POST OP Routine 08/20/2018 4:17 AM SECURITY ADVISOR ESTIMATED GFR Routine 08/20/2018 4:00 AM SECURITY ADVISOR BASIC METABOLIC PANEL Routine 08/20/2018 4:00 AM SECURITY ADVISOR LIPID PANEL Routine 08/20/2018 4:00 AM SECURITY ADVISOR ESTIMATED GFR Routine 08/19/2018 1:52 PM SECURITY ADVISOR CREATININE LEVEL Routine 08/19/2018 1:52 PM SECURITY ADVISOR CV PCI STENT Routine 08/19/2018 Angina of effort (HCC) 9:57 AM SECURITY ADVISOR Atherosclerosis of [place] artery of both lower extremities with intermittent claudication (HCC) AIRPORT MAINTENANCE CHIEF ILIAC ARTERY Routine 08/19/2018 Angina of effort (HCC) 9:57 AM SECURITY ADVISOR Atherosclerosis of [place] artery of both lower extremities with intermittent claudication (HCC) AORTAGRAM ABDOMEN WITH Routine 08/19/2018 Angina of effort (HCC) RUN OFF 9:57 AM SECURITY ADVISOR Atherosclerosis of [place] artery of both lower extremities with intermittent claudication (HCC) CV LEFT HEART CATH LV Routine 08/19/2018 Angina of effort (HCC) GRAM WITH CORS 9:57 AM SECURITY ADVISOR Atherosclerosis of [place] artery of both lower extremities with intermittent claudication (HCC) ECG 12-LEAD STAT 08/19/2018 9:54 AM SECURITY ADVISOR ACTIVATED CLOTTING TIME Routine 08/19/2018 9:25 AM SECURITY ADVISOR after 10/25/2017 Results * CBC with platelet and differential (08/20/2018 4:50 AM SECURITY ADVISOR) WBC 3.81 (L) 4.50 - 11.00 k/uL [facility] RBC 3.87 (L) 4.20 - 5.50 m/uL [facility] HGB 11.6 (L) 12.0 - 16.0 g/dL [facility] HCT 37.1 37.0 - 47.0 % [facility] MCV 95.9 82.0 - 100.[address] [facility] MCH 30.0 27.0 - 34.[address] [facility] MCHC 31.3 31.0 - 37.0 g/dL [facility] RDW - SD 49.5 37.0 - 55.[address] [facility] MPV 11.5 8.8 - 13.[address] [facility] Platelet count 125 (L) 150 - 400 k/uL [facility] Nucleated RBC 0.00 /[address] [facility] Neutrophils 67.5 39.0 - 69.0 % [facility] Lymphocytes 21.3 (L) 25.0 - 45.0 % [facility] Monocytes 8.1 0.0 - 10.0 % [facility] Eosinophils 2.1 0.0 - 5.0 % [facility] Basophils 0.5 0.0 - 1.0 % [facility] Immature granulocytes 0.5Comment: "Immature 0.0 - 1.0 % [facility] granulocytes" (promyelocytes, HOSPITAL myelocytes, metamyelocytes) Specimen Blood Performing Organization Address City/[facility]/Zipcode Phone Number [facility] DEPARTMENT OF [address] [place] [address] PATHOLOGY AND GENOMIC MEDICINE [address] * ECG Pre/Post Op (in AM) (08/20/2018 4:17 AM SECURITY ADVISOR) Ventricular rate 58 [facility] Atrial rate 58 [facility]USE WV interval 182 [facility] QRSD interval 88 [facility] QT interval 466 [facility] QTC interval 457 [facility] MUSE P axis 1 49 [facility] QRS axis 1 37 [facility]USE T wave axis 53 [facility] MUSE EKG impression Sinus bradycardia-Otherwise [facility] MUSE normal ECG-In automated comparison with ECG of 19-AUG-2018 09:54,-No significant change was found- Narrative Performed At Performing Organization Address City/[facility] Phone Number [address] [address] * Estimated GFR (08/20/2018 4:00 AM SECURITY ADVISOR) Only the most recent of 2 results within the time period is included. Estimated GFR 71 mL/min/1.73 m2 [facility] Comment: HOSPITAL CatergoryUnitsInte rpretation G1 >=90 Normal or high G2 60-89Mildly decreased [id number] Mildly to moderately decreased [id number] Moderately to severely decreased G4 15-29Severely decreased G5 <15Kidney failure The eGFR was calculated using the Chronic Kidney Disease Epidemiology Collaboration (CKD-EPI) equation. Interpretation is based on recommendations of the National Kidney Foundation-Kidney Disease Outcomes Quality Initiative (NKF-KDOQI) published in 2014. Specimen Plasma specimen Performing Organization Address City/[facility] Services[facility] Phone Number [facility] DEPARTMENT OF [address] [place] [address] PATHOLOGY AND GENOMIC MEDICINE [facility] [address] [place] [address] HOSPITAL * Lipid panel (08/20/2018 4:00 AM SECURITY ADVISOR) Cholesterol 206 (H) <200 mg/dL [facility] Triglycerides 188 (H) <150 mg/dL [facility] HDL cholesterol 25 (L) >40 mg/dL [facility] LDL cholesterol 158 (H)Comment: Result <100 mg/dL [facility] obtained by direct [facility] measurement Lipid panel SeeBelow [facility] interpretation Comment: HOSPITAL Total Cholesterol (mg/dL) <200 Desirable 200-239Borderline -high >=240High Triglycerides (mg/dL) <150 Normal 150-199Borderline -high 200-499High >=500Very high HDL Cholesterol (mg/dL) <40Low (male) <40Low (female) LDL Cholesterol (mg/dL) <100 Optimal 100-129Near or above optimal 130-159Borderline -high 160-189High >=190Very high Risk Catergories that modify LDL goals. Risk Catergories LDL goal (mg/dL) CHD and CHD risk equivalent<100 (10-year risk >20%) Multiple (2+) risk factors <130 (10-year risk=<20%) 0-1 risk factors <160 (<10-year risk) Defining levels of lipids in metabolic syndrome Triglycerides >=150 mg/dL HDL Cholesterol Men <40 mg/dL Women <40 mg/dL Non-HDL cholesterol is a second target for therapy in persons with high triglycerides (>=200 mg/dL) Specimen Plasma specimen Performing Organization Address City/[facility]/Zipcode Phone Number [facility] DEPARTMENT OF [address], [place] [facility] PATHOLOGY AND GENOMIC MEDICINE [address] * Basic metabolic panel (08/20/2018 4:00 AM SECURITY ADVISOR) Sodium 133 (L) 135 - 148 mEq/L [facility] Potassium 4.7 3.5 - 5.0 mEq/L [facility] Chloride 99 98 - 112 mEq/L [facility] CO2 23 (L) 24 - 31 mEq/L [facility] Anion gap 11@ANIO 7 - 15 mEq/L [facility] BUN 6 (L) 8 - 23 mg/dL [facility] Creatinine 0.85 0.50 - 0.90 mg/dL [facility] Glucose 99 65 - 99 mg/dL [facility] Calcium 8.4 (L) 8.8 - 10.2 mg/dL [facility] Specimen Plasma specimen Performing Organization Address City/[facility] Services[facility] Phone Number [facility] [place] [address] PATHOLOGY AND [facility] [address] * Creatinine level (08/19/2018 1:52 PM SECURITY ADVISOR) Creatinine 0.94 (H) 0.50 - 0.90 mg/dL [facility] Specimen Plasma specimen Performing Organization Address City/[facility] Services[facility] Phone Number [facility] [place] [address] PATHOLOGY AND [facility] [address] * Cv manager lab procedure (08/19/2018 9:57 AM SECURITY ADVISOR) Narrative Performed At [facility] Findings: LM: patent LAD mid 70% stenosis RCA: mid 50% stenosis LVEDP normal LV gram normal Abdominal aortogram Left iliac artery severe in-stent restenosis Right iliac moderate stenosis S/p PCI LAD CASANDRA 3 x 26mm Resolute Cascade Procedure Details Attending: Dr. Oglesby EQUIPMENT/ANTICOAGULATION: Right Common Femoral Artery 4 Fr sheath later upgraded to 6 Fr sheath XB LAD 3.5Guide Catheter Hi-Torque Floppy XS coronary wire Anticoagulation:Angiomax bolus and Infusion with ACT >250 sec prior to procedure PROCEDURAL DETAILS: After obtaining informed consent, the patient was brought to the cardiac catheterization suite. The right groin was prepped and draped in normal sterile fashion. The right femoral artery was located, skin was infiltrated was lidocaine. The artery was accessed using the Seldinger technique, and a 4Fr sheath was inserted. Coronaries were visualized with JL4 and 3DRC catheters. LVEDP and LV gram were performed with a pigtail catheter. The pigtail catheter was then brought down to aortic bifurcation and abdominal aortogram was performed. We then prepped for PCI. Angiomax was administered and upgraded to 6Fr sheath. The LMT was engaged with the XB LAD 3.5Guide Catheter and a Hi-Torque Floppy XS coronary wirecoronary wire was advanced into the distal LAD. Another Hi-torque floppy was advanced into the diagonal branch. The lesion in the midLAD was pre-dilated with a 2.5 x 15mm semi-compliant balloon at 10atm and stented with a 3x 26mm Resolute Bernard CASANDRA at 12atm. Final angiography revealed no evidence of dissection or perforation; there was ANABEL 3 flow and 0% residual stenosis. HEMOSTASIS: Manual Pressure ADDITIONAL POST-PROCEDURE MEDICATIONS: PLAN: 1. ASA 81mg daily 2. Clopidogrel 75mg daily . 3. Cardiac medical therapy and aggressive risk factor modification. Cardiac rehabilitation. 4. Transferred in stable condition 5. Plan for PTCA of left iliac artery in a few weeks Performing Organization Address [facility] Phone Number [facility] [address] [place] [address] * ECG 12 lead (08/19/2018 9:54 AM SECURITY ADVISOR) Ventricular rate 65 [facility] Atrial rate 65 [facility] M[facility] WV interval 178 [facility] QRSD interval 90 [facility] QT interval 462 [facility] QTC interval 480 [facility] P axis 1 57 [facility] QRS axis 1 40 [facility] T wave axis 56 [facility] EKG impression Normal sinus rhythm-Normal [facility] MUSE ECG-In automated comparison with ECG of 28-OCT-2014 14:21,-Vent. rate has decreased BY 36 BPM- Narrative Performed At Performing Organization Address [facility] Phone Number [facility] [address] [place] [address] * Activated clotting time (08/19/2018 9:25 AM SECURITY ADVISOR) Activated clotting time 427 (H) 96 - 152 sec YOSEF SOTO Comment: HOSPITAL Meter ID: [id number] Ornamental Metal Erector: Ismael Villarreal Performing Organization Address City/State/Zipcode Phone Number [facility] DEPARTMENT OF [address] [place] [address] PATHOLOGY AND GENOMIC MEDICINE YOSEF SOTO [address] [place] [id number] HOSPITAL after 10/25/2017 Insurance Payer Benefit Subscriber ID Type Phone Address Plan / Group COMMERCIAL MISC MISC xxxxxxxxxx Commercial COMMERCIAL MEDICARE MEDICARE xxxxxxxxxx Medicare [place], [place] PART A AND B Advance Directives Patient has advance care planning documents on file. For more information, nash mares contact: Yosef Soto [address] [place] [address]
--- OUTSIDE RECORDS SUMMARY | 2018-10-26 02:47 | XMS REPORT | Continuity of Care Document ---
Author Author Ashwini brar [facility] Interface Address Unknown Phone Unavailable Problems Problem Status Onset Date Classification Date Reported Comments Source R11.2 / R10.11 / R14.0 Active 05/07/2018 [facility] 571.5 CIRRHOSIS Active 02/06/2015 [facility] 571.5 - CIRRHOSIS OF LI 789.00 - ABDMNAL Active 02/02/2015 [facility] Alejandra Lumbosacral spondylosis Active Problem 02/13/2018 Marquis Saavedra Chronic pain syndrome Active Diagnosis 02/13/2018 Marquis Saavedra Radiculopathy, lumbar region Active Problem 02/13/2018 Marquis Saavedra terminal clerk use of opiate analgesic Active Problem 02/13/2018 Marquis Saavedra Acute pain of left shoulder Active Problem 02/13/2018 Marquis Saavedra Nausea Active Problem 02/13/2018 Marquis Saavedra NAUSEA WITH VOMITING, UNSPECIFIED Active [facility] RIGHT UPPER QUADRANT PAIN Active [facility] ABDOMINAL DISTENSION (GASEOUS) Active [facility] Medications Medication Details Route Status Patient Instructions [...] Active 60 MG Orally Once a day [facility] Marquis Saavedra Fosinopril Sodium 1 tablet Orally Active 10 MG Orally Once a day [facility] Marquis Saavedra Xanax 1 tablet Orally Active 1 MG Orally Twice a day [facility] Marquis Saavedra Promethazine HCl 1 tablet as needed Orally Active 12.5 MG Orally daily [facility] Marquis Saavedra Promethazine HCl 1 tablet as needed Orally Active 25 MG Orally TID [facility] aMrquis Saavedra Tramadol HCl 1 tablet as needed Orally Active 50 MG Orally every 6 hrs [facility] Marquis Saavedra Atorvastatin Calcium 1 tablet Orally Active 40 MG Orally Once a day [facility] Marquis Saavedra Phenergan 1 tablet as needed Orally Active 25 MG Orally TID [facility] Marquisdaisy Saavedra Fentanyl 1 patch to skin Transdermal Active 50 MCG/HR Transdermal Q72H [facility] Marquisdaisy Saavedra Atorvastatin Calcium 1 tablet Orally Active 40 MG Orally Once a day [facility] Marquis Lewer Fentanyl 1 patch to skin Transdermal Active 50 MCG/HR Transdermal Q72H [facility] Marquis Saavedra Fosinopril Sodium 1 tablet Orally Active 10 MG Orally Once a day [facility] Marquis Lewer Tramadol HCl 2 tablet as needed Orally Active 50 MG Orally every 8 hrs [facility] Marquis Saavedra Dexilant 1 capsule Orally Active 60 MG Orally Once a day [facility] Marquis Saavedra Promethazine HCl 1 tablet as needed Orally Active 12.5 MG Orally daily [facility] Marquis Saavedra Xanax 1 tablet Orally Active 1 MG Orally Twice a day [facility] Marquis Saavedra Dilaudid 1 tablet as needed Orally Active 4 MG Orally every 6 hrs [facility] Marquisdaisy Saavedra Oxycodone HCl 1 tablet as needed Orally Active 10 MG Orally every 8 hrs PRN [facility] Marquis Saavedra Promethazine HCl 1 tablet as needed Orally Active 25 MG Orally every 12 hrs [facility] Marquis Saavedra Allergies, Adverse Reactions, Alerts Substance [...] : 1950; Age: 67 years Female MR: [id number] Study: Abdomen/Pelvis CTA 05/11/2018 6:58 AM CDT [...] MRI liver protocol for further characterization. SL: [id number] 05/11/2018 - - Read by: Anjel Anguiano MD Dictated Date/time: 05/11/18 08:58 Electronically Signed by: Anjel Anguiano MD 05/11/18 09:14 FINAL REPORT [facility] Abdomen w IV contrast CT Abdomen w [...] Hemant Nichols MD 02/06/15 16:59 FINAL REPORT [facility] Vital Signs Vital Sign Value Date Comments [...] Saavedra Temperature Oral (F) 97.5 F 12/23/2016 Maruqis Saavedra Heart Rate 84 12/23/2016 Marquis Saavedra [...] Provider ADM Date DC Date Status Source [facility] Outpatient [id number] Malick Mathew 02/06/2015 02/07/2015 [facility] Mauro Saavedra MD [employer] [id number] 08/28/2016 08/28/2016 Marquis Saavedra Procedures Procedure Code Date Perfomer Comments Source
[2018-10-26] MEDS ORDERED: OMEPRAZOLE40 MG PO (02:49)
[2018-10-26] MEDS ORDERED: CLOPIDOGREL75 MG PO (02:51)
[2018-10-26] MEDS ORDERED: ASPIR 8181 MG PO (02:55)
[2018-10-26] MEDS ORDERED: SODIUM CHLORIDE 0.9% 1000ML 1,000 ML IV STA (03:01)
[2018-10-26] MEDS ORDERED: PANTOPRAZOLE 40 MG 10ML VIAL IV STA (03:01)
[2018-10-26] MEDS ORDERED: ONDANSETRON HCL INJ 2MG/ML 2ML 2 MG/ML VIAL IV STA (03:01)
[2018-10-26 03:33] LABS: BASOPHILS % 0.2 % (0.0-1.0); HEMATOCRIT 40.1 % (34.2-44.1); LYMPHOCYTES # (AUTO) 0.7 (1.0-3.2); MEAN CORPUSCULAR HEMOGLOBIN 29.3 pg (28-32); MEAN CORPUSCULAR HGB CONC 32.4 g/dL (31-35); MEAN CORPUSCULAR VOLUME 90.5 fL (81-99); MONOCYTES # (AUTO) 0.2 (0.2-0.8); MONOCYTES % 2.5 % (4.4-11.3); NEUTROPHILS # (AUTO) 7.1 (2.1-6.9); NEUTROPHILS % 87.7 % (38.7-80.0); PLATELET COUNT 192 x10e3/uL (140-360); RED BLOOD COUNT 4.43 x10e6/uL (3.6-5.1)
[2018-10-26] MEDS ORDERED: DIATRIZOATE MEGL/DIATRIZOA SOD 30 ML BTL PO ONE (03:33)
[2018-10-26 03:37] LABS: INR 0.81; PROTHROMBIN TIME 11.7 seconds (11.9-14.5)
[2018-10-26 03:38] LABS: PARTIAL THROMBOPLASTIN TIME 19.6 seconds (23.8-35.5)
[2018-10-26] MEDS ORDERED: HYDRALAZINE HCL 20 MG/ML VIAL IV STA (03:38)
[2018-10-26] MEDS ORDERED: METOCLOPRAMIDE HCL 10 MG/2ML VIAL IV ONE (03:45)
[2018-10-26] MEDS ORDERED: DIPHENHYDRAMINE HCL INJ 50 MG/ML VIAL IV ONE (03:45)
[2018-10-26 03:50] LABS: ALANINE AMINOTRANSFERASE 21 IU/L (0-55); ALBUMIN 3.8 g/dL (3.5-5.0); ALBUMIN/GLOBULIN RATIO 0.9 (0.8-2.0); ALKALINE PHOSPHATASE 88 IU/L (40-150); AMYLASE 56 U/L (25-125); ANION GAP 16.1 mmol/L (8-16); BLOOD UREA NITROGEN 9 mg/dL (7-26); BUN/CREATININE RATIO 11 (6-25); CALCIUM 9.1 mg/dL (8.4-10.2); CARBON DIOXIDE 20 mmol/L (22-29); CHLORIDE 102 mmol/L (98-107); CREATINE KINASE 344 IU/L (29-168); CREATININE, SERUM 0.82 mg/dL (0.57-1.11); EST GLOMERULAR FILTRATION RATE > 60 ML/MIN (60-); GLUCOSE 182 mg/dL (74-118); LIPASE 11 U/L (8-78); MAGNESIUM 2.1 MG/DL (1.3-2.1); POTASSIUM 4.1 mmol/L (3.5-5.1); SODIUM 134 mmol/L (136-145)
--- NOTE | 2018-10-26 03:53 | Diagnostic Imaging Report ---
Examination: Single AP view of the chest. COMPARISON: Portable chest 04/25/2018 INDICATION: Nausea vomiting and abdominal pain IMPRESSION: 1. Lines and Tubes: None 2. Lungs are grossly clear. No consolidation or effusion. 3. Cardiomediastinal silhouette is normal. Pulmonary vasculature is normal. Atherosclerotic calcification of the aortic arch. 4. No acute bony abnormalities. Signed by: Dr. Nikolas Lyle M.D. on 10/26/2018 3:50 AM
[2018-10-26] MEDS ORDERED: IOPAMIDOL 370 MG/ML 200 ML INFUS..BTL INJ ONE (04:14)
[2018-10-26] MEDS ORDERED: PROMETHAZINE 25MG/ NS 50ML (IV) IV ONE (04:30)
[2018-10-26 04:40] LABS: BILIRUBIN,URINE NEGATIVE (NEGATIVE); CLARITY,URINE CLEAR (CLEAR); COLOR,URINE YELLOW (YELLOW); KETONES,URINE NEGATIVE (NEGATIVE); LEUKOCYTE ESTERASE ,URINE NEGATIVE (NEGATIVE); NITRITE,URINE NEGATIVE (NEGATIVE); PROTEIN,URINE DIPSTICK NEGATIVE (NEGATIVE); URINE UROBILINOGEN 0.2 mg/dL (0.2 - 1)
[2018-10-26 04:45] LABS: BACTERIA,URINE FEW /HPF; EPITHELIAL CELLS,URINE FEW /LPF; MUCUS,URINE MODERATE (RARE)
[2018-10-26 04:46] LABS: YEAST,URINE FEW
--- NOTE | 2018-10-26 05:21 | Diagnostic Imaging Report ---
EXAMINATION: CT of the abdomen and pelvis with contrast. TECHNIQUE: Spiral CT images of the abdomen and pelvis were performed from the lung bases to the lesser trochanters after the intravenous administration of 100 cc of Omnipaque 300. Patient was unable to tolerate oral contrast due to nausea and vomiting. Coronal and sagittal reformatted images were obtained. COMPARISON: CT abdomen and pelvis 06/14/2013, MRI abdomen 07/06/2018 CLINICAL HISTORY:Nausea, vomiting and diarrhea for 4 days, diffuse abdominal pain DISCUSSION: ABDOMEN/PELVIS: LOWER THORAX:Unremarkable. HEPATOBILIARY: Nodular hepatic contour. Diffusely decreased attenuation of the hepatic parenchyma compared to the spleen, consistent with steatosis. No focal lesions. No intra or extrahepatic biliary ductal dilation. GALLBLADDER: Cholecystectomy clips. SPLEEN: Spleen is enlarged, measuring 14.7 cm in craniocaudal diameter. PANCREAS: No focal masses or ductal dilatation. ADRENALS: No adrenal nodules. KIDNEYS/URETERS: No hydronephrosis, stones, or solid mass lesions. Stable 1.9 cm personally exophytic cystic lesion in the lateral left interpolar region, consistent with a hemorrhagic/proteinaceous cyst on prior MRI. PELVIC ORGANS/BLADDER: Bladder is unremarkable. Uterus is absent. No adnexal masses. PERITONEUM/RETROPERITONEUM: No free air or fluid. LYMPH NODES: No intra-abdominal, retroperitoneal, pelvic or inguinal lymphadenopathy. VESSELS: The celiac trunk,superior and inferior mesenteric and bilateral renal arteries are patent The portal, superior mesenteric and splenic veins are patent. Portal vein is dilated, measuring 1.7 cm at the derick hepatis. Metallic stent again visualized in the proximal SMA. Atherosclerotic calcification of the abdominal aorta and iliac vessels. Stable infrarenal abdominal aortic aneurysm which measures approximately 4.1 x 4.3 cm in diameter and 7.8 cm in length extending to the bifurcation (series 2, image 34), and contains prominent soft plaque. A periaortic hematoma or contrast extravasation. GI TRACT: No bowel dilation or evidence of obstruction. No pericolonic inflammatory changes. BONES AND SOFT TISSUE: No aggressive lytic lesions. No soft tissue abnormalities. IMPRESSION: 1. No acute abdominopelvic abnormalities. 2. Cirrhotic and steatotic liver with evidence of portal hypertension manifested by dilated portal vein and splenomegaly. No focal lesions. 3. Stable 4.3 cm infrarenal abdominal aortic aneurysm. Signed by: Dr. Nikolas Lyle M.D. on 10/26/2018 5:18 AM
--- OUTSIDE RECORDS SUMMARY | 2018-10-26 06:09 | XMS REPORT | Clinical Summary ---
Author Author [facility] Organization [facility] Address Unknown Phone Unavailable Care Team Providers Care Personnel Supervisor Name Role Phone Asked, No Pcp PCP [...] LEFT HEART CATH LV GRAM WITH CORS [[id number] (CPT)] 08/19/2018 Surgery Procedural Cardiology Francisco Oglesby MD Angina of effort (HCC); Atherosclerosis of elem artery of both lower extremities with intermittent [...] Taken Vital Sign Reading 08/20/2018 8:30 AM ENGINEER SOILS Blood Pressure 156/67 08/20/2018 8:30 AM ENGINE[employer] SOILS Pulse 60 08/20/2018 4:00 AM ENGINE[employer] SOILS Temperature 35.9 C (96.6 F) 08/20/2018 4:00 AM ENGINE[employer] SOILS Respiratory Rate 24 08/20/2018 8:30 AM ENGINEER SOILS Oxygen Saturation 93% - Inhaled Oxygen - Concentration 08/19/2018 7:13 AM ENGINE[employer] SOILS Weight 75.5 kg (166 lb 6.4 oz) 08/19/2018 7:13 AM ENGINE[employer] SOILS Height 154.9 cm (5' 1") 08/19/2018 7:13 AM ENGINEER SOILS Body Mass Index 31.44 Plan of Treatment Not on file Implants Device Identifier Shelf Expiration Date Model / Serial / Lot Implanted Type Area Manufactur er [id number] / / Stent System 3.0 X 26mm Resolute Coronary N/A: N/A [employer] [place] Otw Coronary - [id number] Stents [place] - Implanted: 08/19/2018 (Quantity not CARDIAC on file) RYHTYM MGMT Procedures Comments Procedure Name Priority Date/Time Associated Diagnosis HC COMPLETE BLD COUNT Routine 08/20/2018 W/AUTO DIFF 4:50 AM ENGINEER SOILS ECG PRE/POST OP Routine 08/20/2018 4:17 AM ENGINE[employer]ILS ESTIMATED GFR Routine 08/20/2018 4:00 AM ENGINE[employer]ILS BASIC METABOLIC PANEL Routine 08/20/2018 4:00 AM ENG[employer]ILS LIPID PANEL Routine 08/20/2018 4:00 AM ENG[employer] ESTIMATED GFR Routine 08/19/2018 1:52 PM [employer] CREATININE LEVEL Routine 08/19/2018 1:52 PM ENGINE[employer] SOILS CV PCI STENT Routine 08/19/2018 Angina of effort (HCC) 9:57 AM ENGINEER SOILS Atherosclerosis of elem artery of both lower extremities with intermittent claudication (HCC) MARINE OILER ILIAC ARTERY Routine 08/19/2018 Angina of effort (HCC) 9:57 AM ENGINEER SOILS Atherosclerosis of elem artery of both lower extremities with intermittent claudication (HCC) AORTAGRAM ABDOMEN WITH Routine 08/19/2018 Angina of effort (HCC) RUN OFF 9:57 AM ENGINE[employer] SOILS Atherosclerosis of elem artery of both lower extremities with intermittent claudication (HCC) CV LEFT HEART CATH LV Routine 08/19/2018 Angina of effort (HCC) GRAM WITH CORS 9:57 AM ENGINEER SOILS Atherosclerosis of elem artery of both lower extremities with intermittent claudication (HCC) ECG 12-LEAD STAT 08/19/2018 9:54 AM ENGINE[employer]ILS ACTIVATED CLOTTING TIME Routine 08/19/2018 9:25 AM ENGINEER SOILS after 10/25/2017 Results * CBC with platelet and differential (08/20/2018 4:50 AM ENGINEER SOILS) WBC 3.81 (L) 4.50 - 11.00 k/uL [facility] RBC 3.87 (L) 4.20 - 5.50 m/uL [facility] HGB 11.6 (L) 12.0 - 16.0 g/dL [facility] HCT 37.1 37.0 - 47.0 % [facility] MCV 95.9 82.0 - 100.0 fL [facility] MCH 30.0 27.0 - 34.0 pg [facility] MCHC 31.3 31.0 - 37.0 g/dL [facility] RDW - SD 49.5 37.0 - 55.0 fL [facility] MPV 11.5 8.8 - 13.2 fL [facility] Platelet count 125 (L) 150 - 400 k/uL [facility] Nucleated RBC 0.00 /100 WBC [facility] Neutrophils 67.5 39.0 - 69.0 % [facility] Lymphocytes 21.3 (L) 25.0 - 45.0 % [facility] Monocytes 8.1 0.0 - 10.0 % [facility] Eosinophils 2.1 0.0 - 5.0 % [facility] Basophils 0.5 0.0 - 1.0 % [facility] Immature granulocytes 0.5Comment: "Immature 0.0 - 1.0 % [facility] granulocytes" (promyelocytes, HOSPITAL myelocytes, metamyelocytes) Specimen Blood Performing Organization Address City/[facility]/Zipcode Phone Number [facility] DEPARTMENT OF [address] [place] [address] PATHOLOGY AND GENOMIC MEDICINE [address] * ECG Pre/Post Op (in AM) (08/20/2018 4:17 AM ENGINEER SOILS) Ventricular rate 58 [facility]USE Atrial rate 58 [facility]USE [place] interval 182 [facility] QRSD interval 88 [facility] QT interval 466 [facility] QTC interval 457 [facility] MUSE P axis 1 49 [facility] MUSE QRS axis 1 37 [facility] MUSE T wave axis 53 [facility] MUSE EKG impression Sinus bradycardia-Otherwise [facility] MUSE normal ECG-In automated comparison with ECG of 19-AUG-2018 09:54,-No significant change was found- Narrative Performed At Performing Organization Address City/[facility] Phone Number [address] [address] * Estimated GFR (08/20/2018 4:00 AM ENGINEER SOILS) Only the most recent of 2 results within the time period is included. Estimated GFR 71 mL/min/1.73 m2 [facility] Comment: HOSPITAL CatergoryUnitsInte rpretation G1 >=90 Normal or high G2 60-89Mildly decreased [id number] Mildly to moderately decreased G1s40-49 Moderately to severely decreased G4 15-29Severely decreased G5 <15Kidney failure The eGFR was calculated using the Chronic Kidney Disease Epidemiology Collaboration (CKD-EPI) equation. Interpretation is based on recommendations of the National Kidney Foundation-Kidney Disease Outcomes Quality Initiative (NKF-KDOQI) published in 2014. Specimen Plasma specimen Performing Organization Address City/[facility] Phone Number [facility] DEPARTMENT OF [address] [place] [address] PATHOLOGY AND GENOMIC MEDICINE [facility] [address] [place] [address] HOSPITAL * Lipid panel (08/20/2018 4:00 AM ENGINEER SOILS) Cholesterol 206 (H) <200 mg/dL [facility] Triglycerides 188 (H) <150 mg/dL [facility] HDL cholesterol 25 (L) >40 mg/dL [facility] LDL cholesterol 158 (H)Comment: Result <100 mg/dL [facility] obtained by direct [facility] measurement Lipid panel SeeBelow [facility] interpretation Comment: HOSPITAL Total Cholesterol (mg/dL) <200 [...] mg/dL) Specimen Plasma specimen Performing Organization Address City/[facility]/Zipcode Phone Number [facility] DEPARTMENT OF [address] [place], [place] [facility] PATHOLOGY AND GENOMIC MEDICINE [address] * Basic metabolic panel (08/20/2018 4:00 AM ENGINEER SOILS) Sodium 133 (L) 135 - 148 mEq/L [facility] Potassium 4.7 3.5 - 5.0 mEq/L [facility] Chloride 99 98 - 112 mEq/L [facility] CO2 23 (L) 24 - 31 mEq/L [facility] Anion gap 11@ANIO 7 - 15 mEq/L [facility] BUN 6 (L) 8 - 23 mg/dL [facility] Creatinine 0.85 0.50 - 0.90 mg/dL [facility] Glucose 99 65 - 99 mg/dL [facility] Calcium 8.4 (L) 8.8 - 10.2 mg/dL [facility] Specimen Plasma specimen Performing Organization Address City/[facility] Phone Number [facility] [place] [address] PATHOLOGY AND [facility] MEDICINE [address] * Creatinine level (08/19/2018 1:52 PM ENGINEER SOILS) Creatinine 0.94 (H) 0.50 - 0.90 mg/dL [facility] Specimen Plasma specimen Performing Organization Address City/[facility] Phone Number [facility] [place] [address] PATHOLOGY AND [facility] MEDICINE [address] * Cv fish hatchery laborer procedure (08/19/2018 9:57 AM ENGINEER SOILS) Narrative Performed At 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 Oglesby EQUIPMENT/ANTICOAGULATION: Right [...] in a few weeks Performing Organization Address [facility] Phone Number [employer] [address] [place] [address] * ECG 12 lead (08/19/2018 9:54 AM ENGINEER SOILS) Ventricular rate 65 [facility] Atrial rate 65 [facility] [place] interval 178 [facility] QRSD interval 90 [facility] QT interval 462 [facility] QTC interval 480 [facility] P axis 1 57 [facility] QRS axis 1 40 [facility] T wave axis 56 [facility] EKG impression Normal sinus rhythm-Normal [facility] MUSE ECG-In automated comparison with ECG of 28-OCT-2014 14:21,-Vent. rate has decreased BY 36 BPM- Narrative Performed At Performing Organization Address [facility] Phone Number [employer] [address] [place] [address] * Activated clotting time (08/19/2018 9:25 AM ENGINEER SOILS) Activated clotting time 427 (H) 96 - 152 sec YOSEF SOTO Comment: HOSPITAL Meter ID: [id number] Soil Surveyor: Ismael Villarreal Performing Organization Address City/State/Zipcode Phone Number [facility] DEPARTMENT OF [address] [place] [address] PATHOLOGY AND GENOMIC MEDICINE YOSEF SOTO [address] [place] [id number] HOSPITAL after 10/25/2017 Insurance Payer Benefit Subscriber ID Type Phone Address Plan / Group COMMERCIAL MISC MISC xxxxxxxxxx Commercial COMMERCIAL MEDICARE MEDICARE xxxxxxxxxx Medicare [place], [place] PART A AND B Advance Directives Patient has advance care planning documents on file. For more information, nash mares contact: Yosef Soto [address] [place] [address]
--- NOTE | 2018-10-26 07:00 | NUR ---
RECEIVED REPORT FROM JOSHUA Mauro RN FOR CONTINUATION OF CARE
[2018-10-26] MEDS: SODIUM CHLORIDE 0.9% 1000ML 1,000 ML IV SCH ×3 (07:20→19:02)
--- NOTE | 2018-10-26 07:23 | NUR ---
PT AMBULATED TO THE RESTROOM WITH STEADY GAIT
--- NOTE | 2018-10-26 07:54 | NUR ---
PT C/O NAUSEA AND VOMITING. SMALL AMOUNT OF BILOUS LIQUID IN EMESIS BAG. PT ASKING FOR PAIN MED. SAYS HAS TO HAVE MORPHINE FOR HER CHRONIC BACK PAIN
[2018-10-26] MEDS: ONDANSETRON HCL INJ 2MG/ML 2ML 2 MG/ML VIAL IV PRN ×3 (07:56→22:14)
[2018-10-26] MEDS: CLOPIDOGREL BISULFATE 75 MG TAB PO SCH (08:50)
[2018-10-26] MEDS: PROMETHAZINE HCL (IM) 25 MG/ML VIAL IV PRN ×2 (08:50→13:20)
[2018-10-26] MEDS ORDERED: SODIUM CHLORIDE 0.9% 50ML 50 ML ONE ×2 (08:54→13:17)
[2018-10-26] MEDS ORDERED: ASPIRIN 81 MG ENTERIC COATED PO SCH (09:00)
--- NOTE | 2018-10-26 10:40 | NUR ---
LAB CAME AND SHANAE PATIENT'S 2ND SET OF CARDIAC ENZYMES
--- NOTE | 2018-10-26 10:44 | NUR ---
PATIENT HAS BEEN CONTINUOUSLY COMPLAINING ABOUT THE RIGHT EJ PIV. SHE SAID IT IS BOTHERING HER AND HURTS. I PLACED A LEFT FOREARM 22 GAUGE PIV AT HER REQUEST.
[2018-10-26 11:19] LABS: CREATINE KINASE MB 1.5 ng/mL (0-5.0)
--- NOTE | 2018-10-26 11:35 | NUR ---
Juanis liz in [facility] - 10/26/18 at 1143 by AZAM CALLED RT FOR NEBS
--- NOTE | 2018-10-26 11:42 | NUR ---
Juanis liz in ED - 10/26/18 at 1143 by AZAM RT AT BEDSIDE. PLACED PT ON NEB
--- NOTE | 2018-10-26 12:55 | NUR ---
STILL NO CALL BACK FROM DR. STINSON ABOUT CONTINUING HOME MEDS AND GETTING SOME PAIN MED ORDERED. PT IS STILL C/O BACK AND ABDOMINAL PAIN. PT ASKED FOR NAUSEA MEDS AND THEY WERE GIVEN NOW
--- NOTE | 2018-10-26 15:21 | NUR ---
PT ASKING FOR PAIN MED. I NEVER HEARD BACK FROM DR. STINSON, BUT PATIENT SAID THAT DR. OLIVEROS IS COVERING FOR DR. STINSON. WILL PAGE DR. OLIVEROS
--- NOTE | 2018-10-26 15:51 | NUR ---
CALLED DR. OLIVEROS BECAUSE I WAS TOLD THAT HE WAS COVERING FOR DR. STINSON, BUT HIS OFFICE SAYS HE IS NOT. I AM STILL TRYING TO REACH A DOCTOR ABOUT CONTINUING PTS HOME MEDS
[2018-10-26] MEDS ORDERED: NON-FORMULARY MEDICATION ([Phenergan] 25 MG) PO PRN ×2 (19:30)
[2018-10-26] MEDS ORDERED: FENTANYL 50 MCG/HR PATCH TOP SCH (19:30)
[2018-10-26] MEDS ORDERED: PROMETHAZINE HCL 25 MG TAB PO PRN (19:45)
[2018-10-26 20:00] VITALS: BP 195/84
--- NOTE | 2018-10-26 20:43 | History and Physical ---
HISTORY OF PRESENT ILLNESS: This is a 67-year-old, comes in with abdominal pain, found to have elevated CK, admitted for observation. PAST MEDICAL HISTORY: History of anxiety, history of chronic pain, history of gastroparesis, history of hypertension, history of hyperlipidemia, history of reflux esophagitis. MEDICINES: She takes at home are alprazolam 1 mg b.i.d. and 2 mg at bedtime, aspirin 81 mg, clopidogrel 75 mg daily, fentanyl patch mcg daily, Fosinopril 10 mg daily, metoprolol 25 mg daily, omeprazole 40 mg daily, oxycodone 5 mg twice a day, Rosuvastatin 10 mg, Phenergan 25 mg 3 times a day for gastroparesis. PAST SURGICAL HISTORY: Noncontributory. FAMILY HISTORY: Positive for heart attack, history of CVA, and history of dementia and COPD in the family. The patient also has a history of chronic UTIs. REVIEW OF SYSTEMS: Negative for chest pain. No shortness of breath. Positive for nausea. Positive for vomiting. No diarrhea. No constipation. No rectal bleeding. No hematochezia. No hematemesis either. ALLERGIES: THE PATIENT IS ALLERGIC TO CEPHALEXIN, PENICILLINS, AND TETRACYCLINE. PHYSICAL EXAMINATION: VITAL SIGNS: T-max of 100.1, pulse of 93, respirations of 14, and blood pressure is 178/74. HEENT: Normocephalic, atraumatic. Pupils are reactive to light and accommodation. CVS: S1, S2 normal. Regular rhythm. ABDOMEN: Tender in the epigastrium. No rebound tenderness present. EXTREMITIES: No clubbing, no cyanosis, no edema. LABORATORY DATA: The patient's white count is 8.03, hemoglobin of 13.0, hematocrit of 40.1, platelet count of 192. Chemistry shows a sodium of 134, potassium of 4.1, BUN of 9, creatinine 0.82. CK-MB was 7.20. Creatine kinase was 344. Coags normal. Urine, moderate amount of mucus and negative for leukocyte esterase. The patient's additional history includes VARELA, nonalcoholic steatohepatitis. ASSESSMENT: 1. Abdominal pain and nausea and vomiting secondary to possible gastroparesis. 2. Elevated CK and CK-MB, which have normalized. Third set of cardiac enzymes are pending. PLAN: Plan is to continue home medication including her pain medications. Continue with the blood pressure medicines. Further recommendation and clinical course, the patient can be discharged in 1-2 days. Clear liquid diet has been reinstated on this patient. MD TOPHER YehJ/MODL /[id number]
[2018-10-26 21:55] VITALS: BP 195/84
[2018-10-26] MEDS: SIMVASTATIN 40 MG TAB PO SCH (22:13)
[2018-10-26] MEDS: ALPRAZOLAM 1 MG TAB PO SCH (22:13)
[2018-10-26] MEDS: OXYCODONE HCL 20 MG TAB CR PO PRN (22:28)
[2018-10-26] MEDS: PROMETHAZINE HCL 25 MG TAB PO PRN (22:29)
[2018-10-26 23:11] VITALS: BP 195/84
--- NOTE | 2018-10-26 23:15 | NUR ---
BP RECHECKED STILL HIGH 196/88 MMHG. PATIENT IS ASLEEP NO COMPLAINS.
--- NOTE | 2018-10-26 23:39 | NUR ---
PAGED DR. STINSON REGARDING HIGH BLOOD PRESSURE WAITING FOR RESPONSE.
[2018-10-27] VITALS (8 sets, daily range): BP systolic 128–198; BP diastolic 69–97
--- NOTE | 2018-10-27 00:16 | NUR ---
CALL RECEIVED FROM THE SOURCING ASSISTANT IF DR STINSON CALL BACK. STILL NO RESPONSE FROM . SOURCING ASSISTANT WILL PAGED FOR THE SECOND TIME.
[2018-10-27] MEDS: SODIUM CHLORIDE 0.9% 1000ML 1,000 ML IV SCH ×4 (01:42→21:42)
--- NOTE | 2018-10-27 01:58 | NUR ---
NO CALL BACK FROM DR. STINSON AT THIS TIME.
--- NOTE | 2018-10-27 02:05 | NUR ---
CALL RECEIVED FROM DR MILAD HAMILTON ORDERS RECEIVED.
[2018-10-27] MEDS ORDERED: HYDRALAZINE HCL 20 MG/ML VIAL IV PRN (02:15)
[2018-10-27] MEDS: PROMETHAZINE HCL 25 MG TAB PO PRN ×5 (02:58→22:30)
[2018-10-27] MEDS: ONDANSETRON HCL INJ 2MG/ML 2ML 2 MG/ML VIAL IV PRN ×4 (02:59→22:30)
[2018-10-27 06:32] LABS: BASOPHILS % 0.4 % (0.0-1.0); EOSINOPHILS % 0.4 % (0.0-6.0); HEMATOCRIT 40.6 % (34.2-44.1); HEMOGLOBIN 13.2 g/dL (12.0-16.0); LYMPHOCYTES # (AUTO) 1.9 (1.0-3.2); MEAN CORPUSCULAR HEMOGLOBIN 29.2 pg (28-32); MEAN CORPUSCULAR HGB CONC 32.5 g/dL (31-35); MEAN CORPUSCULAR VOLUME 89.8 fL (81-99); MONOCYTES # (AUTO) 0.7 (0.2-0.8); NEUTROPHILS # (AUTO) 5.3 (2.1-6.9); NEUTROPHILS % 64.8 % (38.7-80.0); PLATELET COUNT 167 x10e3/uL (140-360); RED BLOOD COUNT 4.52 x10e6/uL (3.6-5.1); RED CELL DISTRIBUTION WIDTH 14.3 % (11.7-14.4)
[2018-10-27 06:57] LABS: ALANINE AMINOTRANSFERASE 15 IU/L (0-55); ALBUMIN 3.9 g/dL (3.5-5.0); ALBUMIN/GLOBULIN RATIO 1.2 (0.8-2.0); ALKALINE PHOSPHATASE 87 IU/L (40-150); ANION GAP 13.2 mmol/L (8-16); BLOOD UREA NITROGEN 8 mg/dL (7-26); BUN/CREATININE RATIO 11 (6-25); CALCIUM 8.7 mg/dL (8.4-10.2); CARBON DIOXIDE 20 mmol/L (22-29); CHLORIDE 105 mmol/L (98-107); CREATININE, SERUM 0.73 mg/dL (0.57-1.11); EST GLOMERULAR FILTRATION RATE > 60 ML/MIN (60-); GLUCOSE 103 mg/dL (74-118); POTASSIUM 3.2 mmol/L (3.5-5.1); SODIUM 135 mmol/L (136-145)
[2018-10-27 07:30] LABS: CREATINE KINASE MB 1.9 ng/mL (0-5.0)
[2018-10-27] MEDS: METOPROLOL TARTRATE 25 MG TAB PO SCH ×2 (08:30→21:59)
[2018-10-27] MEDS: PANTOPRAZOLE SOD 40 MG TABEC PO SCH (08:30)
[2018-10-27] MEDS: ASPIRIN 81 MG CHEW TAB PO SCH (08:30)
[2018-10-27] MEDS: ALPRAZOLAM 1 MG TAB PO SCH ×3 (08:30→21:59)
[2018-10-27] MEDS: CLOPIDOGREL BISULFATE 75 MG TAB PO SCH (08:30)
--- NOTE | 2018-10-27 08:49 | NUR ---
TELEPHONED MD STINSON FOR PICC LINE ORDER AFTER 2 ATTEMPTS FROM RADIOLOGY NURSE TO GET IV, PT STATES "I USUALLY GET PICC LINE", AWAITING CALL BACK
[2018-10-27] MEDS ORDERED: FENTANYL 50 MCG/HR PATCH TOP SCH (09:00)
[2018-10-27] MEDS ORDERED: METOPROLOL TARTRATE 25 MG TAB PO SCH (09:00)
[2018-10-27] MEDS: FOSINOPRIL SODIUM 10 MG TAB PO SCH ×2 (09:00→14:13)
[2018-10-27] MEDS ORDERED: ALPRAZOLAM 1 MG TAB PO SCH (09:00)
[2018-10-27] MEDS ORDERED: CLOPIDOGREL BISULFATE 75 MG TAB PO SCH (09:00)
--- NOTE | 2018-10-27 10:12 | NUR ---
SPOKE WITH MD STINSON, ORDERS NOTED, CONSENT COMPLETED, SPOKE WITH JESSICA, MADE AWARE PT IS READY
[2018-10-27] MEDS: OXYCODONE HCL 20 MG TAB CR PO PRN (11:45)
--- NOTE | 2018-10-27 12:01 | Progress Note ---
DATE: 10/27/2018 SUBJECTIVE: A 67-year-old female comes in with elevated CK, intractable nausea and vomiting, history of gastroparesis. Currently, the vomiting is better, but continues to have nausea, which is precluding the patient from having even clear liquids. OBJECTIVE: VITAL SIGNS: Temperature is 98.8, pulse of 94, respirations of 20, blood pressure is 192/86, pulse oximetry of 95%. HEENT: Normocephalic, atraumatic. The patient does have some ecchymosis in the face of vomiting. CVS: S1, S2 normal. Regular rate and rhythm. ABDOMEN: Tender in the epigastrium. Positive for bowel sounds. No rebound, no guarding present. EXTREMITIES: No clubbing, no cyanosis, no edema. LABORATORY VALUES: Pending for today. Chemistries yesterday showed a BUN of 9 and creatinine of 0.82 with a GFR of above 60. First set of CK was 344 with a CK-MB of 7.2, trended to be negative at 91 and 1.50. Coags are all normal. MICROBIOLOGY: Urine clean catch is pending. ASSESSMENT: Intractable nausea and vomiting secondary to gastroparesis. Continue with antiemetics at this time. Clear liquid diet had been reinstated. The patient has elevated CK and CK-MB, which has normalized, third set of enzymes are pending. PLAN: Continue with home medications. Restart her home medications and antihypertensives. Pain management with fentanyl patch and home medications. Nausea to be controlled with Phenergan. Possible discharge in 1 to 2 days for intractable nausea and vomiting. MD PIEDAD Yeh/MODL /[id number]
--- NOTE | 2018-10-27 13:29 | NUR ---
PICC PLACED, PENDING X RAY FOR PLACEMENT VERIFICATION
--- NOTE | 2018-10-27 14:20 | NUR ---
X RAY PENDING, PT C/O LEFT UE PICC HURTING, PENDING TO BE CHECKED, NOTIFIED HOUSE, STATES WILL COME CHECK IT
[2018-10-27] MEDS: ONDANSETRON HCL 4 MG ORAL DISINTEGRATING TAB PO PRN (14:45)
--- NOTE | 2018-10-27 14:50 | NUR ---
Visit made by the Spiritual Care Department Pastoral Visitor, Collette Morrow. PV provided pastoral presence, hospitality, and supportive listening. Pastoral Visitor informed pt/family of the scope of Sales Program Manager Services and availability. REBECA WRIGHT Traffic Recorder Spiritual Care Department O: [phone] Pager: [phone] ([phone] number calling from)
--- NOTE | 2018-10-27 15:23 | Diagnostic Imaging Report ---
EXAM: AP Portable chest DATE: 10/27/2018 Time stamp on exam: 1:38 PM INDICATION: PICC placement COMPARISON: None FINDINGS: LINES/TUBES: Left-sided PICC terminates overlying the SVC. LUNGS: No consolidations or edema. PLEURA: No effusions or pneumothorax. HEART AND MEDIASTINUM: Normal size and contour. BONES AND SOFT TISSUES: No acute findings. IMPRESSION: No acute thoracic abnormality. Signed by: Dr. Osito Samayoa DO on 10/27/2018 3:20 PM
--- NOTE | 2018-10-27 15:53 | NUR ---
Timeout with Dilma Jama RN. Patient complaining of pain to left arm at site of left PICC; states is unable to move, pain is "excruciating." Per Dr. Samayoa, Radiologist, PICC in appropriate location. Dilma Jama RN flushed PICC; flushes well. Patient denies complaints when flushing. No swelling, redness, bleeding, no acute changes to site. Patient explained she may have discomfort r/t to new insertion, but I can remove PICC if discomfort is to great. Patient states she is unable to make a decision. Dr. Magan Zavaleta called, Dr. Magan Zavaleta asks for PICC to be removed if patient feels great pain. Dilma Jama RN at bedside. When about to remove PICC, patient states, arm doesn't "hurt, hurt" anymore. She asks for me to leave PICC in place. Dilma Jama RN to call MD and notify patient does not want PICC line removed again.
--- NOTE | 2018-10-27 16:00 | NUR ---
NEW 20G TO R HAND BY CHARGE NURSE, PT TOLERATED WELL
--- NOTE | 2018-10-27 17:35 | NUR ---
PT STATES LUE PICC IS STILL SORE BUT "NOT BAD", POINTS TO BOTTOM OF ARM BELOW PICC INSERTION, STATES "THIS IS WHERE IT HURTS", NOTIFIED PT THAT WE CAN REMOVE PICC AT ANYTIME IF SHE IS HURTING TOO BAD OR UNCOMFORTABLE, PT VERBALIZED UNDERSTANDING,
[2018-10-27] MEDS: HYDROMORPHONE HCL 2 MG TAB PO PRN (18:28)
[2018-10-27] MEDS: SIMVASTATIN 40 MG TAB PO SCH (21:59)
[2018-10-28] VITALS (9 sets, daily range): BP systolic 94–128; BP diastolic 51–62
[2018-10-28] MEDS: HYDROMORPHONE HCL 2 MG TAB PO PRN ×3 (00:15→21:29)
--- NOTE | 2018-10-28 00:35 | NUR ---
Pt had a 2 seconds episodes of ventricular tachycardia. Patient is asymptomatic. Paged Dr. Carrero. waiting for response
--- NOTE | 2018-10-28 01:45 | NUR ---
Call back received from Dr. Carrero. Notified regarding patients v tach episodes. No new orders.
[2018-10-28] MEDS: SODIUM CHLORIDE 0.9% 1000ML 1,000 ML IV SCH ×3 (04:22→17:42)
[2018-10-28] MEDS: ONDANSETRON HCL INJ 2MG/ML 2ML 2 MG/ML VIAL IV PRN ×2 (05:41→11:08)
[2018-10-28] MEDS: PROMETHAZINE HCL 25 MG TAB PO PRN ×3 (05:41→21:33)
[2018-10-28 06:28] LABS: CREATINE KINASE MB 0.6 ng/mL (0-5.0)
[2018-10-28 07:13] LABS: ANION GAP 10.4 mmol/L (8-16); BLOOD UREA NITROGEN 17 mg/dL (7-26); BUN/CREATININE RATIO 20 (6-25); CALCIUM 8.1 mg/dL (8.4-10.2); CARBON DIOXIDE 23 mmol/L (22-29); CHLORIDE 103 mmol/L (98-107); CREATININE, SERUM 0.84 mg/dL (0.57-1.11); EST GLOMERULAR FILTRATION RATE > 60 ML/MIN (60-); GLUCOSE 77 mg/dL (74-118); POTASSIUM 3.4 mmol/L (3.5-5.1); SODIUM 133 mmol/L (136-145)
--- NOTE | 2018-10-28 07:30 | NUR ---
Received patient and walking rounds complete. Patient awake resting in bed at this time, no signs of distress. Call light in reach, will continue to monitor.
--- NOTE | 2018-10-28 07:56 | NUR ---
Paged Dr. Carrero regarding potassium level.
--- NOTE | 2018-10-28 08:45 | NUR ---
Patient A/O X3, even respirations on RA. Patient tolerated full liquids for breakfast. Advanced diet to GI soft for lunch. Tele #[id number] SR. Right hand 20 gauge IV with NS @ 100mls/hr. Left UA PICC in place. Zofran and Phenergan for nausea Q4. Patient is ambulatory, voids in toilet. Call light in reach, will continue to monitor.
[2018-10-28] MEDS: CLOPIDOGREL BISULFATE 75 MG TAB PO SCH (09:07)
[2018-10-28] MEDS: ASPIRIN 81 MG CHEW TAB PO SCH (09:07)
[2018-10-28] MEDS: PANTOPRAZOLE SOD 40 MG TABEC PO SCH (09:07)
[2018-10-28] MEDS: ALPRAZOLAM 1 MG TAB PO SCH ×3 (09:07→21:28)
[2018-10-28] MEDS: FOSINOPRIL SODIUM 10 MG TAB PO SCH (09:07)
[2018-10-28] MEDS: METOPROLOL TARTRATE 25 MG TAB PO SCH ×2 (09:07→21:28)
--- NOTE | 2018-10-28 12:34 | Progress Note ---
DATE: SUBJECTIVE: A 67-year-old female comes in with intractable nausea and vomiting. The patient had a PICC line placed secondary to lack of peripheral lines. The patient continues to have nausea, but better. The patient had positive bowel movements. Abdomen is less tender and less painful at this time. The patient did have a small run of V-tach 2 beats lasting about 2 seconds and asymptomatic during the episode. OBJECTIVE: VITAL SIGNS: Temperature is 97.8, pulse was 71, respirations of 18, pulse oximetry of 97%. HEENT: Normocephalic, atraumatic. Pupils are reactive to light and accommodation. CVS: S1, S2 normal. Regular rate and rhythm. ABDOMEN: Tender in the periumbilical area. No rebound tenderness or guarding. EXTREMITIES: No clubbing, no cyanosis, no edema. LABORATORY VALUES: Yesterday's potassium is 3.2, was replaced, we will go ahead and replace another potassium. BUN and creatinine are normal. MICROBIOLOGY: Urine cultures preliminary no growth in the last 48 hours. ASSESSMENT: 1. Intractable nausea and vomiting. 2. Gastroparesis. 3. Hypokalemia. 4. Run of ventricular tachycardia. 5. Elevated CK, CK-MB. The patient's third set of enzymes are negative. PLAN: To continue home medication. Continue with the fentanyl patch and nausea control with Phenergan. The patient will be advanced to a full liquid diet and as tolerated. Once able to tolerate diet, the patient can be discharged home. The patient does have a followup with Cardiology as an outpatient. We will continue monitoring as an outpatient for cardiac services. Further recommendation and clinical course, we will continue to monitor her for her nausea and vomiting here and possible discharge in one day. MD TOPHER YehJ/MODL /[id number]
--- NOTE | 2018-10-28 13:00 | NUR ---
Order from Dr. Carrero 40 Meq potassium.
[2018-10-28] MEDS ORDERED: POTASSIUM CHLORIDE 20 MEQ TAB CR PO NR (13:30)
--- NOTE | 2018-10-28 15:32 | NUR ---
Met with patient. Explained IMM letter. Verbalized understanding and signed. Copy placed in Transition of Care Folder and original placed in chart.
--- NOTE | 2018-10-28 19:00 | NUR ---
RECEIVED REPORT FROM MELI ORTIZ FOR CONTINUATION OF CARE
[2018-10-28] MEDS ORDERED: OXYCODONE HCL IR 5 MG TAB PO PRN (20:45)
[2018-10-28] MEDS: SIMVASTATIN 40 MG TAB PO SCH (21:28)
[2018-10-29] VITALS: BP 102/51
[2018-10-29] MEDS: SODIUM CHLORIDE 0.9% 1000ML 1,000 ML IV SCH ×2 (00:22→07:02)
[2018-10-29] MEDS: PROMETHAZINE HCL 25 MG TAB PO PRN (02:03)
[2018-10-29 04:00] VITALS: BP 113/58
[2018-10-29] MEDS: HYDROMORPHONE HCL 2 MG TAB PO PRN (04:59)
[2018-10-29] MEDS: ONDANSETRON HCL 4 MG ORAL DISINTEGRATING TAB PO PRN (04:59)
[2018-10-29] MEDS ORDERED: POTASSIUM CHLORIDE 20 MEQ TAB CR PO STA (06:24)
--- NOTE | 2018-10-29 06:59 | Progress Note ---
DATE: SUBJECTIVE: The patient is here for intractable nausea and vomiting. The patient is currently able to eat, had 1 chicken strip and also some mashed potatoes. Currently afebrile. No complaints. Did have a bowel movement. OBJECTIVE: VITAL SIGNS: Temperature is 97.5, pulse of 59, respirations 20, blood pressure is 130/58. Telemetry was normal. No runs of ventricular tachycardia since yesterday. HEENT: Normocephalic and atraumatic. Pupils are reactive to light and accommodation. CVS: S1 and S2 normal. Regular rate and rhythm. ABDOMEN: Nontender, nondistended. EXTREMITIES: No clubbing, no cyanosis, no edema. LABORATORY VALUES: None today. Potassium was low yesterday and was replaced. ASSESSMENT: 1. Intractable nausea and vomiting, better. 2. History of gastroparesis. Continue with GI followup as an outpatient. 3. Hypokalemia, replace again. 4. Run of ventricular tachycardia 1 day prior. The patient is to follow up with her hadoop analyst tomorrow, has an appointment tomorrow. 5. Elevated CK and CK-MB, negative cardiac enzymes. DISPOSITION: Discharge the patient today. Continue with pain management, fentanyl patch and morphine at home. The patient to be seen by Cardiology as an outpatient for elevated cardiac enzyme. FURTHER RECOMMENDATION AND CLINICAL COURSE: The patient was given strict ER warnings. MD TOPHER YehJ/MODL /[id number]
--- NOTE | 2018-10-29 07:13 | NUR ---
Received patient and walking rounds complete. Patient awake resting in bed at this time, no signs of distress. Call light in reach, will continue to monitor.
[2018-10-29 08:19] VITALS: BP 113/58
[2018-10-29 08:37] VITALS: BP 133/62
[2018-10-29] MEDS: FOSINOPRIL SODIUM 10 MG TAB PO SCH (08:41)
[2018-10-29] MEDS: ALPRAZOLAM 1 MG TAB PO SCH (08:41)
[2018-10-29] MEDS: CLOPIDOGREL BISULFATE 75 MG TAB PO SCH (08:41)
[2018-10-29] MEDS: METOPROLOL TARTRATE 25 MG TAB PO SCH (08:41)
[2018-10-29] MEDS: ASPIRIN 81 MG CHEW TAB PO SCH (08:41)
[2018-10-29] MEDS: PANTOPRAZOLE SOD 40 MG TABEC PO SCH (08:41)
--- NOTE | 2018-10-29 09:15 | NUR ---
Patient A/O X3, even respirations on RA. Bowel sounds active, skin intact, no edema. Patient is ambulatory with standby assist. NAKUL PICC line in place. Right hand 20 gauge IV SL. No complaints of pain or discomfort at this time. Call light in reach, will continue to monitor.
--- NOTE | 2018-10-29 10:30 | NUR ---
Removed IV. Catheter tip intact and pressure dressing applied. Removed PICC line, catheter tip intact and pressure dressing applied.
--- NOTE | 2018-10-29 10:32 | NUR ---
Patient discharged from facility. Patient gathered all personal belongings, follow up information, and discharge instructions. No signs of distress when leaving facility.
== END 2018-10-29 10:33 | disposition home or self-care (01) | DRG 392 ==
LOC: ER 02:41 → ERHOLD 06:05 → MED/SURG 21:30
PROVIDERS: ADMIT Family Medicine; ATTEND Family Medicine
PROC: 02HV33Z Insertion of Infusion Device into Superior Vena Cava, Percutaneous Approach (ICD-10-PCS; principal; 2018-10-27)
DX: K31.84 Gastroparesis (principal); K75.81 Nonalcoholic steatohepatitis (NASH); F41.9 Anxiety disorder, unspecified; G89.29 Other chronic pain; Z88.0 Allergy status to penicillin; K20.9 Esophagitis, unspecified
CPT/HCPCS: 36415; 36569; 71045; 74177; 74470; 80048; 80053; 81001; 82150; 82550; 82553; 83690; 83735; 84484; 85025; 85610; 85730; 87086; 93005; 96374; 99284; J0360; J1200; J2405; J2550; J2765; J7030; Q9967

== ENCOUNTER → 2019-01-08 | Outpatient (CLI) | payer MEDICARE, OTHER ==
[~2019-01-08] MED LIST changes: +ASPIR 8181 MG PO; +CLOPIDOGREL75 MG PO; +IOPAMIDOL 370 MG/ML 200 ML INFUS..BTL INJ ONE; +METOPROLOL TART25 MG PO; +OMEPRAZOLE40 MG PO; +SODIUM CHLORIDE 0.9% 50ML 50 ML ONE
--- NOTE | 2019-01-08 10:38 | Diagnostic Imaging Report ---
EXAM: CT ABDOMEN AND PELVIS with IV CONTRAST DATE: 01/08/2019 Time stamp on Exam: 8:45 AM INDICATION: VARELA COMPARISON: 10/26/2018 TECHNIQUE: The abdomen and pelvis were scanned using a multidetector helical scanner. Coronal and sagittal reformations were obtained. Technique modification was performed to maintain the lowest dose possible to the patient. IV Contrast: 100 cc of Isovue-370 Oral Contrast: Water Radiation Dose: Total DLP 497.92 mGy*cm Estimated effective dose: DLP x 0.015 x size factor FINDINGS: LOWER THORAX: No consolidations LIVER: No masses with diffuse hepatic steatosis. Enlargement of the liver measuring 18.5 cm. BILIARY: The gallbladder is absent. No ductal dilatation. SPLEEN: The spleen is enlarged measuring 14.5 cm. PANCREAS: No masses ADRENALS: No nodules KIDNEYS: Symmetric perfusion. No enhancing masses. No hydronephrosis. There is a 1.9 cm left renal cyst. GI TRACT: No distention, wall thickening or evidence of obstruction. VESSELS: There is a 4.3 cm infrarenal abdominal aortic aneurysm that is clot lined. Aneurysm extends to the aortic bifurcation. There are bilateral iliac artery stents (common iliac to external iliac on the left and external iliac on the right) and an SMA stent. Main portal vein measures 1.8 cm. PERITONEUM/RETROPERITONEUM: No free air or fluid LYMPH NODES: No lymphadenopathy REPRODUCTIVE ORGANS: Unremarkable BLADDER: Unremarkable SOFT TISSUES: Unremarkable BONES: No suspicious bone lesions. IMPRESSION: 1. Hepatosplenomegaly with evidence of portal vein enlargement. 2. Diffuse hepatic steatosis without evidence of a mass. 3. Infrarenal abdominal aortic aneurysm. Signed by: Dr. Osito Samayoa DO on 01/08/2019 10:35 AM
== END ==
LOC: CT 07:35
PROVIDERS: ATTEND Internal Medicine Gastroenterology
DX: K75.81 Nonalcoholic steatohepatitis (NASH) (principal)
CPT/HCPCS: 74177; Q9967

== ENCOUNTER → 2019-01-13 | Day surgery (SDC) | payer MEDICARE ==
[2019-01-12 12:12] LABS: BASOPHILS % 0.5 % (0.0-1.0); EOSINOPHILS # (AUTO) 0.1 (0.0-0.4); EOSINOPHILS % 2.2 % (0.0-6.0); HEMATOCRIT 39.4 % (34.2-44.1); HEMOGLOBIN 12.7 g/dL (12.0-16.0); LYMPHOCYTES # (AUTO) 2.4 (1.0-3.2); LYMPHOCYTES % 39.7 % (18.0-39.1); MEAN CORPUSCULAR HEMOGLOBIN 29.3 pg (28-32); MEAN CORPUSCULAR HGB CONC 32.2 g/dL (31-35); MEAN CORPUSCULAR VOLUME 90.8 fL (81-99); MONOCYTES # (AUTO) 0.5 (0.2-0.8); MONOCYTES % 8.1 % (4.4-11.3); NEUTROPHILS % 49.2 % (38.7-80.0); PLATELET COUNT 160 x10e3/uL (140-360); RED BLOOD COUNT 4.34 x10e6/uL (3.6-5.1); RED CELL DISTRIBUTION WIDTH 13.8 % (11.7-14.4)
[~2019-01-13] MED LIST changes: -IOPAMIDOL 370 MG/ML 200 ML INFUS..BTL INJ ONE; +LIDOCAINE HCL 2% LOCAL INJ 5 ML SDV VIAL INJ ONE; +MIDAZOLAM HCL 2 MG/2 ML VIAL ONE; +MOVANTIK PO; +PROPOFOL IV EMULSION 10 MG/ML 50 ML VIAL ONE; -SODIUM CHLORIDE 0.9% 50ML 50 ML ONE
--- OUTSIDE RECORDS SUMMARY | 2019-01-13 05:21 | XMS REPORT | Summary of Care ---
Author Author [facility] Organization [facility] Address Unknown Phone Unavailable Encounter ANSELMO Dunne(GARCÍA) [id number] Date(s): 05/11/18 - 05/11/18 [facility] [address] [place] [address]- Encounter Diagnosis Nausea with vomiting, unspecified (Final) - 05/14/18 Abdominal distension (gaseous) (Final) - Right upper quadrant pain (Final) - Change in bowel habit (Final) - Disorientation, unspecified (Final) - Nonalcoholic steatohepatitis (VARELA) (Final) - Abnormal weight gain (Final) - Personal history of colonic polyps (Final) - Abdominal aortic aneurysm, without rupture (Final) - Atherosclerosis of other arteries (Final) - Unspecified cirrhosis of liver (Final) - Varicose veins of other specified sites (Final) - Discharge Disposition: Home or Self Care Attending Physician: Nando Pitts MD Referring Physician: Nando Pitts MD Vital Signs No data available for this section Problem List No data available for this section Allergies, Adverse Reactions, Alerts Substance Reaction Severity Status penicillins Active tetracyclines Active cephalexin Active Medications Omnipaque 350 injectable solution 100 mL, Route: IV, Drug Form: SOLN, kg, ONCALL, For CTA exam with GFR > 45 mL/min, Start date: 05/11/18 8:00:00 CDT, Duration: 1 doses or times Notes: (same as:Omnipaque 350).WASTE: F/P - Black; E - Municipal Trash Bin Start Date: 05/11/18 Status: Ordered Results Most recent to 1 oldest [Reference Range]: eGFR 77 mL/min/1.73m2 1 *NA* (05/11/18 7:43 AM) POC Creatinine 0.8 mg/dL [0.5-1.4 mg/dL] (05/11/18 7:43 AM) 1Result Comment: The eGFR is calculated using the CKD-EPI formula. In most young, healthy individuals the eGFR will be >90 mL/min/1.73m2. The eGFR declines with age. An eGFR of 60-89 may be normal in some populations, particularly the elderly, for whom the CKD-EPI formula has not been extensively validated. Use of the eGFR is not recommended in the following populations: Individuals with unstable creatinine concentrations, including patients and those with serious co-morbid conditions. Patients with extremes in muscle mass or diet. The data above are obtained from the National Kidney Disease Education Program ( NKDEP) which additionally recommends that when the eGFR is used in patients with extremes of body mass index for purposes of drug dosing, the eGFR should be mul tiplied by the estimated BMI. Immunizations No data available for this section Procedures No data available for this section Social History No data available for this section Assessment and Plan No data available for this section
--- OUTSIDE RECORDS SUMMARY | 2019-01-13 05:21 | XMS REPORT | Continuity of Care Document ---
Author Author [facility] Interface Address Unknown Phone Unavailable Problems Problem Status Onset Date Classification Date Reported Comments Source Nausea with vomiting, unspecified 05/15/2018 11/29/2018 [facility] R11.2 / R10.11 / R14.0 Active 05/07/2018 [facility] 571.5 CIRRHOSIS Active 02/06/2015 [facility] 571.5 - CIRRHOSIS OF LI 789.00 - ABDMNAL Active 02/02/2015 [facility] Abdominal distension 11/29/2018 [facility] Right upper quadrant pain 11/29/2018 [facility] Change in bowel habit 11/29/2018 [facility] Disorientation, unspecified 11/29/2018 [facility] Nonalcoholic steatohepatitis 11/29/2018 [facility] Abnormal weight gain 11/29/2018 [facility] Personal history of colonic polyps 11/29/2018 [facility] Abdominal aortic aneurysm, without rupture 11/29/2018 [facility] Atherosclerosis of other arteries 11/29/2018 [facility] Unspecified cirrhosis of liver 11/29/2018 [facility] Varicose veins of other specified sites 11/29/2018 [facility] Lumbosacral spondylosis Active Problem 02/13/2018 Marquis Saavedra Chronic pain syndrome Active Diagnosis 02/13/2018 Marquis Saavedra Radiculopathy, lumbar region Active Problem 02/13/2018 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 02/13/2018 Marquis Saavedra Acute pain of left shoulder Active Problem 02/13/2018 Marquis Saavedra Nausea Active Problem 02/13/2018 Marquis Saavedra NAUSEA WITH VOMITING, UNSPECIFIED Active [facility] RIGHT UPPER QUADRANT PAIN Active [facility] ABDOMINAL DISTENSION (GASEOUS) Active [facility] Medications Medication Details Route Status Patient Instructions Ordering Provider Order Date Source Omnipaque 350 injectable solution 100 mL, Route: IV, Drug Form: SOLN, kg, ONCALL, For CTA exam with GFR > 45 mL/min, Start date: 05/11/18 8:00:00 CDT, Duration: 1 doses or timesNotes: (same as:Omnipaque 350). WASTE: F/P - Black; E - Municipal Trash Bin Active 05/11/2018 [facility] Tramadol HCl 2 tablet as needed Orally Active 50 MG Orally every 8 hrs [facility] 02/22/2018 Marquis Saavedra Tramadol HCl 2 tablet as needed Orally Active 50 MG Orally every 8 hrs [facility] 12/21/2017 Marquis Saavedra Promethazine HCl 1 tablet as needed Orally Active 25 MG Orally TID [facility] 06/03/2017 Marquis Saavedra Fentanyl 1 patch to skin Transdermal Active 50 MCG/HR Transdermal Q72H [facility] 03/07/2017 Marquis Saavedra Promethazine HCl 1 tablet as needed Orally Active 25 MG Orally TID [facility] 03/06/2017 Marquis Saavedra Tramadol HCl 2 tablet as needed Orally Active 50 MG Orally every 8 hrs [facility] 03/05/2017 Marquis Saavedra Tramadol HCl 1 tablet as needed Orally Active 50 MG Orally every 6 hrs [facility] 12/23/2016 Marquis Saavedra Fentanyl 1 patch to skin Transdermal Active 25 MCG/HR Transdermal [facility] 12/23/2016 Marquis Saavedra Dexilant 1 capsule Orally Active 60 MG Orally Once a day [facility] Marquis Saavedra Fosinopril Sodium 1 tablet Orally Active 10 MG Orally Once a day [facility] Marquis Saavedra Xanax 1 tablet Orally Active 1 MG Orally Twice a day [facility] Marquis Saavedra Promethazine HCl 1 tablet as needed Orally Active 12.5 MG Orally daily [facility] Marquis Saavedra Promethazine HCl 1 tablet as needed Orally Active 25 MG Orally TID [facility] Marquis Saavedra Tramadol HCl 1 tablet as needed Orally Active 50 MG Orally every 6 hrs [facility] Marquis Saavedra Atorvastatin Calcium 1 tablet Orally Active 40 MG Orally Once a day [facility] Marquis Saavedra Phenergan 1 tablet as needed Orally Active 25 MG Orally TID [facility] Marquis Saavedra Fentanyl 1 patch to skin Transdermal Active 50 MCG/HR Transdermal Q72H [facility] Marquis Saavedra Atorvastatin Calcium 1 tablet Orally Active 40 MG Orally Once a day [facility] Marquis Lewer Fentanyl 1 patch to skin Transdermal Active 50 MCG/HR Transdermal Q72H [facility] Marquis Saavedra Fosinopril Sodium 1 tablet Orally Active 10 MG Orally Once a day [facility] Marquis Saavedra Tramadol HCl 2 tablet as needed Orally Active 50 MG Orally every 8 hrs [facility] Marquis Saavedra Dexilant 1 capsule Orally Active 60 MG Orally Once a day [facility] Marquis Saavedra Promethazine HCl 1 tablet as needed Orally Active 12.5 MG Orally daily [facility] Marquis Saavedra Xanax 1 tablet Orally Active 1 MG Orally Twice a day [facility] Marquis Saavedra Dilaudid 1 tablet as needed Orally Active 4 MG Orally every 6 hrs [facility] Marquis Saavedra Oxycodone HCl 1 tablet as needed Orally Active 10 MG Orally every 8 hrs PRN [facility] Marquis Saavedra Promethazine HCl 1 tablet as needed Orally Active 25 MG Orally every 12 hrs [facility] Marquis Saavedra Allergies, Adverse Reactions, Alerts Substance Category Reaction Severity Reaction type Status Date Reported Comments Source PENICILLEN Adverse Reaction anaphylaxis Adverse Reaction Active 10/22/2017 Marquis Saavedra KEFLEX Adverse Reaction anaphylaxis Adverse Reaction Active 10/22/2017 Marquis Saavedra penicillins Assertion Drug allergy Active [facility] tetracyclines Assertion Drug allergy Active [facility] cephalexin Assertion Drug allergy Active [facility] Immunizations Immunization Date Given Site Status Last Updated Comments Source Results Order Name Results Value Reference Range Date Interpretation Comments Source CHEM PANEL POC Creatinine 0.8 mg/dL 0.5 - 1.4 05/11/2018 [facility] CHEM PANEL eGFR 77 mL/min/1.73m2 05/11/2018 Result Comment: The eGFR is calculated using the [...] from the National Kidney Disease Education Program (NKDEP) which additionally recommends that when the eGFR is used in patients with extremes of body mass index for purposes of drug dosing, the eGFR should be multiplied by the estimated BMI. [facility] Abdomen/Pelvis CTA Abdomen/Pelvis CTA Patient Name: KATELYNN BECKMAN : 1950; Age: 67 years Female MR: [id number] Study: Abdomen/Pelvis CTA 05/11/2018 6:58 AM CDT [...] MRI liver protocol for further characterization. SL: [id number] 05/11/2018 - - Read by: Anjel Anguiano MD Dictated Date/time: 05/11/18 08:58 Electronically Signed by: Anjel Anguiano MD 05/11/18 09:14 FINAL REPORT [facility] Abdomen w IV contrast CT Abdomen w [...] Hemant Nichols MD 02/06/15 16:59 FINAL REPORT [facility] Vital Signs Vital Sign Value Date Comments [...] Provider ADM Date DC Date Status Source [facility] [id number] [place] Egwim 02/06/2015 02/07/2015 [facility] Mauro Saavedra MD [employer] [id number] 08/28/2016 08/28/2016 Marquis Saavedra [facility] [id number] Nando Pitts 05/11/2018 05/12/2018 [facility] Procedures Procedure Code Date Perfomer Comments Source
--- OUTSIDE RECORDS SUMMARY | 2019-01-13 05:21 | XMS REPORT | Clinical Summary ---
Author Author [facility] Organization [facility] Address Unknown Phone Unavailable Care Team Providers Care Him Tech Name Role Phone Asked, No Pcp PCP [...] by 0 enteric coated tablet mouth daily. 2018 Discontinued MOVANTIK 25 mg tablet TK 1 T PO QD 0 tablet IN THE 8 MORNING 09/19/2018 clopidogrel (PLAVIX) 75 Take 1 tablet 30 tablet 0 201 mg tablet (75 mg total) 9 by mouth daily for 30 days. Active Problems Problem Noted Date Angina of effort 08/19/2018 Encounters Care Team Description Date Type Specialty Francisco Oglesby MD CV AORTAGRAM ABDOMEN WITH RUN OFF Iliac Bilateral [72725 (CPT)] 2018 Surgery Procedural Cardiology Francisco Oglesby MD Atheros[place] artery of both lower extremities with intermittent claudication (HCC) 2018 Hospital Procedural Cardiology Encounter Francisco Oglesby MD CV LEFT HEART CATH LV GRAM WITH CORS [[id number] (CPT)] 08/19/2018 Surgery Procedural Cardiology Francisco Oglesby MD Angina of effort (HCC); Atherosclerosis of [place] artery of both lower extremities with intermittent claudication (HCC) 08/19/2018 Hospital Cardiology - Encounter 08/20/2018 after 01/12/2018 Social History Date Tobacco Use Types Packs/Day [...] Vital Signs Time Taken Vital Sign Reading 2018 2:30 PM CDT Blood Pressure 102/55 2018 2:30 PM CDT Pulse 70 2018 9:00 AM CDT Temperature 36 C (96.8 F) 2018 2:30 PM CDT Respiratory Rate 23 2018 2:30 PM CDT Oxygen Saturation 94% - Inhaled Oxygen - Concentration 2018 6:58 AM CDT Weight 74 kg (163 lb 4 oz) 2018 6:58 AM CDT Height 154.9 cm (5' 1") 2018 6:58 AM CDT Body Mass Index 30.85 Plan of Treatment Not on file Implants Device Identifier Shelf Expiration Date Model / Serial / Lot Implanted Type Area Manufactur er [id number] / / Stent System 3.0 X 26mm Resolute Coronary N/A: N/A MEDTRONIC Bernard Otw Coronary - [id number] Stents [place] - Implanted: 08/19/2018 (Quantity not CARDIAC on file) RYHTYM MGMT 02/19/2021 [id number] / / [id number] Stent Bili Exp Ld Prmntd 7x57mm W/ Peripheral N/A: N/A BSC Cath 75cm - [id number] or Biliary PERIPHERAL Implanted: 2018 (Quantity not Stents INTERVENTI on file) ON VASCULAR FERNANDEZ Procedures Comments Procedure Name Priority Date/Time Associated Diagnosis PHOTOTYPESETTING EQUIPMENT MONITOR ILIAC ARTERY Routine 2018 [place]ros[place] 8:31 AM CDT artery of both lower extremities with intermittent claudication (HCC) AORTAGRAM ABDOMEN WITH Routine 2018 Atherosclerosis of [place] RUN OFF 8:31 AM CDT artery of both lower extremities with intermittent claudication (HCC) ACTIVATED CLOTTING TIME Routine 2018 8:08 AM CDT ECG 12-LEAD STAT 2018 6:55 AM CDT HC COMPLETE BLD COUNT Routine 08/20/2018 W/AUTO DIFF 4:50 AM LATHE TENDER ECG PRE/POST OP Routine 08/20/2018 4:17 AM LATHE TENDER ESTIMATED GFR Routine 08/20/2018 4:00 AM LATHE TENDER BASIC METABOLIC PANEL Routine 08/20/2018 4:00 AM LATHE TENDER LIPID PANEL Routine 08/20/2018 4:00 AM LATHE TENDER ESTIMATED GFR Routine 08/19/2018 1:52 PM LATHE TENDER CREATININE LEVEL Routine 08/19/2018 1:52 PM LATHE TENDER CV PCI STENT Routine 08/19/2018 Angina of effort (HCC) 9:57 AM LATHE TENDER Atherosclerosis [place] artery of both lower extremities with intermittent claudication (HCC) PHOTOTYPESETTING EQUIPMENT MONITOR ILIAC ARTERY Routine 08/19/2018 Angina of effort (HCC) 9:57 AM LATHE TENDER Atherosclerosis of [place] artery of both lower extremities with intermittent claudication (HCC) AORTAGRAM ABDOMEN WITH Routine 08/19/2018 Angina of effort (HCC) RUN OFF 9:57 AM LATHE TENDER Atherosclerosis of [place] artery of both lower extremities with intermittent claudication (HCC) CV LEFT HEART CATH LV Routine 08/19/2018 Angina of effort (HCC) GRAM WITH CORS 9:57 AM LATHE TENDER Atherosclerosis of [place] artery of both lower extremities with intermittent claudication (HCC) ECG 12-LEAD STAT 08/19/2018 9:54 AM LATHE TENDER ACTIVATED CLOTTING TIME Routine 08/19/2018 9:25 AM LATHE TENDER after 01/12/2018 Results * Cv invasive peripheral vascular procedure (2018 8:31 AM CDT) Specimen Narrative Performed At [facility] Successful stenting of 80% common iliac stenosis with a 7x57 mm Express stent Peripheral CATHETERIZATION PROCEDURE NOTE PREOPERATIVE DIAGNOSIS 1.Peripheral Arterial Disease 2.Claudication POSTOPERATIVE DIAGNOSIS 1.Peripheral Arterial Disease 2.Claudication PROCEDURES PERFORMED 1.Ipsilateral left Iliac angiography 2.Abdominal Aortogram 3.Common iliac Stenting with 7x57 mm Express stent [employer] Dr. Francisco Oglesby, Night Cleaner [employer] PROFILER Magan Cadena, Resident, MD ANESTHESIA USED Local 2% lidocaine, Conscious Sedation DESCRIPTION OF PROCEDURE The procedure was described to the patient including benefits, risks, and alternatives to the procedure.The patient confirmed understanding and signed the informed consent.The patient was brought to quality control lab technician, room [address] [facility].Patient was prepped and draped in sterile fashion. Conscious sedation provided to patient throughout procedure with appropriate monitoring. The left common femoral artery ([employer]) was palpated and the region above the artery was anesthetized with 2% local lidocaine.Using 18-gauge AMC needle and fluoroscopic guidance, arterial access was obtained in the left [employer] and a 6F sheath was placed without difficulty. A 6F diagnostic Pigtail was advanced over a Wholey wire to the infrarenal aorta.The wire was removed, the catheter aspirated to ensure no air was in the system and flushed in the usual fashion.A distal abdominal aortogram was performed identifying a severe lesion in the left iliac and a moderate to severe lesion in the right iliac. The lesion was ballooned with an admiral 6x40 balloon and then stented with an express 7x57 mm stent at 10 ab.Final angiography revealed 0% residual stenosis without dissection or perforation. The patient was sent to the holding area in stable condition.The patient was hemodynamically stable throughout the entirety of the procedure. DISPOSITION: Return patient to nursing unit and monitor for groin complications. EBL: <30 mL CONDITION:Stable COMPLICATIONS: None Magan Cadena, Resident, 2018 5:57 PM Performing Organization Address City/[facility]/Zipcode Phone Number [facility] [address] [place] [address] * Activated clotting time (2018 8:08 AM CDT) Only the most recent of 2 results within the time period is included. Pathologist [facility] Activated 294 (H) 96 - 152 sec [place] clotting time Comment: ZOROASTRIANISM Meter ID: [id number] [facility] Landmen: Lucrecia Dueñas Specimen Performing Organization Address [facility]/Zipcode Phone Number [facility] DEPARTMENT OF [address] [place] [address] PATHOLOGY AND GENOMIC MEDICINE [address] * ECG 12 lead (2018 6:55 AM CDT) Only the most recent of 2 results within the time period is included. Pathologist [facility] Ventricular 72 [facility] rate Atrial rate 72 [facility] AL interval 154 [facility] QRSD interval 92 [facility] QT interval 418 [facility] QTC interval 457 [facility] P axis 1 51 [facility] QRS axis 1 18 [facility] T wave axis 40 [facility] EKG impression Normal sinus rhythm-T wave [facility] MUSE abnormality, consider anterior ischemia-Abnormal ECG- Specimen Narrative Performed At Performing Organization Address [facility] Phone Number [facility] [address] [place] [address] * CBC with platelet and differential (08/20/2018 4:50 AM LATHE TENDER) Pathologist [facility] WBC 3.81 (L) 4.50 - 11.00 k/uL [facility] RBC 3.87 (L) 4.20 - 5.50 m/uL [facility] HGB 11.6 (L) 12.0 - 16.0 g/dL [facility] HCT 37.1 37.0 - 47.0 % [facility] MCV 95.9 82.0 - 100.0 fL [facility] MCH 30.0 27.0 - 34.0 pg [facility] MCHC 31.3 31.0 - 37.0 g/dL [facility] RDW - SD 49.5 37.0 - 55.0 fL [facility] MPV 11.5 8.8 - 13.2 fL [facility] Platelet count 125 (L) 150 - 400 k/uL [facility] Nucleated RBC 0.00 /100 WBC [facility] Neutrophils 67.5 39.0 - 69.0 % [facility] Lymphocytes 21.3 (L) 25.0 - 45.0 % [facility] Monocytes 8.1 0.0 - 10.0 % [facility] Eosinophils 2.1 0.0 - 5.0 % [facility] Basophils 0.5 0.0 - 1.0 % [facility] Immature 0.5Comment: "Immature 0.0 - 1.0 % [place] granulocytes granulocytes" (promyelocytes, ZOROASTRIANISM myelocytes, metamyelocytes) [facility] Specimen Blood Performing Organization Address City/[facility] Corporation[facility] Phone Number [facility] OF [address] [place] [address] PATHOLOGY AND GENOMIC MEDICINE [address] * ECG Pre/Post Op (in AM) (08/20/2018 4:17 AM LATHE TENDER) Ventricular 58 [facility] MUSE rate Atrial rate 58 [facility] M[facility] AL interval 182 [facility] M[facility] QRSD interval 88 [facility] QT interval 466 [facility] QTC interval 457 [facility] M[facility] P axis 1 49 [facility] MUSE QRS axis 1 37 [facility]USE T wave axis 53 [facility] EKG impression Sinus bradycardia-Otherwise [facility] normal ECG-In automated comparison with ECG of 19-AUG-2018 09:54,-No significant change was found- Specimen Narrative Performed At Performing Organization Address City/[facility] Corporation[facility] Phone Number [address] [address] * Estimated GFR (08/20/2018 4:00 AM LATHE TENDER) Only the most recent of 2 results within the time period is included. Estimated GFR 71 mL/min/1.73 m2 [place] Comment: [facility] [place] rpretation G1 >=90 Normal or high G2 60-89Mildly decreased [id number] Mildly to moderately decreased [id number] Moderately to severely decreased G4 15-29Severely decreased G5 <15Kidney failure The eGFR was calculated using the Chronic Kidney Disease Epidemiology Collaboration (CKD-EPI) equation. Interpretation is based on recommendations of the National Kidney Foundation-Kidney Disease Outcomes Quality Initiative (NKF-KDOQI) published in 2014. Specimen Plasma specimen Performing Organization Address City/State/Zipcode Phone Number [facility] DEPARTMENT OF [address] [place] [address] PATHOLOGY AND GENOMIC MEDICINE [address] * Lipid panel (08/20/2018 4:00 AM LATHE TENDER) Pathologist [facility] Cholesterol 206 (H) <200 mg/dL [facility] Triglycerides 188 (H) <150 mg/dL [facility] HDL cholesterol 25 (L) >40 mg/dL [facility] LDL cholesterol 158 (H)Comment: Result <100 mg/dL [place] obtained by direct LDL [facility] [place] Lipid [facility] interpretation Comment: ZOROASTRIANISM Total Cholesterol [facility] (mg/dL) <200 Desirable 200-239Borderline -high >=240High Triglycerides [...] mg/dL) Specimen Plasma specimen Performing Organization Address City/[facility] Corporation[facility] Phone Number [facility] [place] [address] PATHOLOGY AND GENOMIC MEDICINE [address] * Basic metabolic panel (08/20/2018 4:00 AM LATHE TENDER) Sodium 133 (L) 135 - 148 mEq/L [facility] Potassium 4.7 3.5 - 5.0 mEq/L [facility] Chloride 99 98 - 112 mEq/L [facility] CO2 23 (L) 24 - 31 mEq/L [facility] Anion gap 11@ANIO 7 - 15 mEq/L [facility] BUN 6 (L) 8 - 23 mg/dL [facility] Creatinine 0.85 0.50 - 0.90 mg/dL [facility] Glucose 99 65 - 99 mg/dL [facility] Calcium 8.4 (L) 8.8 - 10.2 mg/dL [facility] Specimen Plasma specimen Performing Organization Address [facility] Corporationcode Phone Number [facility] [place] [address] PATHOLOGY AND GENOMIC MEDICINE [address] * Creatinine level (08/19/2018 1:52 PM LATHE TENDER) Pathologist [facility] Creatinine 0.94 (H) 0.50 - 0.90 mg/dL [facility] Specimen Plasma specimen Performing Organization Address [facility] Corporationcode Phone Number [facility] [place] [address] PATHOLOGY AND GENOMIC MEDICINE [address] * Cv quality control lab technician procedure (08/19/2018 9:57 AM LATHE TENDER) Specimen Narrative Performed At [facility] Findings: LM: patent LAD mid 70% stenosis RCA: mid 50% stenosis LVEDP normal LV gram normal Abdominal aortogram Left iliac artery severe in-stent restenosis Right iliac moderate stenosis S/p PCI LAD CASANDRA 3 x 26mm Resolute Bernard Procedure Details Attending: Dr. Oglesby EQUIPMENT/ANTICOAGULATION: Right [...] in a few weeks Performing Organization Address City/State/[facility] Phone Number [facility] [address] [place] [address] after 01/12/2018 Insurance Type Payer Benefit Subscriber ID Effective Phone Address Plan / Dates Group Commercial COMMERCIAL MISC MISC xxxxxxxxxx 2016-P COMMERCIAL resent Medicare MEDICARE MEDICARE xxxxxxxxxxx 2016-P [place], PART A AND resent [place] B Advance Directives Patient has advance care planning documents on file. For more information, nash mares contact: Yosef Kim [address] [place] [address]
--- OUTSIDE RECORDS SUMMARY | 2019-01-13 05:22 | XMS REPORT | Summary of Care ---
Author Author [facility] Organization [facility] Address Unknown Phone Unavailable Encounter ANSELMO Dunne(GARCÍA) [id number] Date(s): 05/11/18 - 05/11/18 [facility] [address] [place] [address]- Encounter Diagnosis Nausea with vomiting, unspecified (Final) [...]
--- OUTSIDE RECORDS SUMMARY | 2019-01-13 05:22 | XMS REPORT | Summary of Care ---
Author Author [facility] Organization [facility] Address Unknown Phone Unavailable Encounter ANSELMO Dunne(GARCÍA) [id number] Date(s): 05/11/18 - 05/11/18 [facility] [address] [place] [address]- [phone] Encounter Diagnosis Nausea with vomiting, unspecified (Final) [...]
[2019-01-13 07:55] VITALS: BP 116/75
== END | disposition home or self-care (01) ==
LOC: OR 05:00
PROVIDERS: ATTEND Internal Medicine Gastroenterology
DX: K74.69 Other cirrhosis of liver (principal); I85.10 Secondary esophageal varices without bleeding; K22.70 Barrett's esophagus without dysplasia; K21.9 Gastro-esophageal reflux disease without esophagitis; K58.9 Irritable bowel syndrome, unspecified; I10 Essential (primary) hypertension; E78.5 Hyperlipidemia, unspecified; I71.4 Abdominal aortic aneurysm, without rupture; M54.9 Dorsalgia, unspecified; R05 Cough; Z88.0 Allergy status to penicillin; Z01.810 Encounter for preprocedural cardiovascular examination; Z01.812 Encounter for preprocedural laboratory examination; Z79.82 Long term (current) use of aspirin; Z79.02 Long term (current) use of antithrombotics/antiplatelets; Z95.5 Presence of coronary angioplasty implant and graft; Z87.891 Personal history of nicotine dependence; Z96.659 Presence of unspecified artificial knee joint
CPT/HCPCS: 36415; 43239; 85025; 88305; 88312; 93005; J2001; J2250; J2704

== ENCOUNTER → 2020-03-31 | Emergency (ER) | payer MEDICARE, OTHER ==
[~2020-03-31] VITALS: Ht 154.9 cm; Wt 74.4 kg
[~2020-03-31] MED LIST changes: -LIDOCAINE HCL 2% LOCAL INJ 5 ML SDV VIAL INJ ONE; -MIDAZOLAM HCL 2 MG/2 ML VIAL ONE; -PROPOFOL IV EMULSION 10 MG/ML 50 ML VIAL ONE
--- OUTSIDE RECORDS SUMMARY | 2020-03-31 15:01 | XMS REPORT | Clinical Summary ---
Author Author [facility] Address Unknown Phone Unavailable Care Team Providers Care Night Order Selector Name Role Phone Asked, No Pcp PCP [...] 0 enteric coated tablet mouth daily. Active Problems Problem Noted Date Angina of effort 08/19/2018 Social History Date Tobacco Use Types Packs/Day Years Used Current Every Day Smoker Cigarettes 0.25 Smokeless Tobacco: Never Used Drinks/Week oz/Week Comments Alcohol Use No Alcohol Habits Answer Date Recorded How often do you have a drink containing alcohol? Never 08/18/2018 How many drinks containing alcohol do you have on No t asked a typical day when you are drinking? How often do you have six or more drinks on one Not asked occasion? Sex Assigned at Date Recorded Not on file Industry Job Start Date Occupation Not on file Not on file Not on file Travel End Travel History Travel Start No recent travel history available. Last Filed Vital Signs Not on file Plan of Treatment Not on file Implants Device Identifier Shelf Expiration Date Model / Serial / L ot Implanted Type Area Manufactur er [id number] / / Stent System 3.0 X 26mm Resolute Coronary N/A: N/A [employer] Bernard Otw Coronary - [id number] Stents [place] - Implanted: 08/19/2018 at [facility] (Quantity not on file) RYHTYM MGMT 02/19/2021 [id number] / / [id number] Stent Bili Exp Ld Prmntd 7x57mm W/ Peripheral N/A: N/A BSC Cath 75cm - [id number] or Biliary PERIPHERAL Implanted: 2018 at [facility] (Quantity not on file) ON VASCULAR FERNANDEZ Results Not on fileafter 03/31/2019 Insurance Type Payer Benefit Subscriber ID Effective Phone Address Plan / Dates Group Commercial COMMERCIAL MISC MISC xxxxxxxxxx 2016-P COMMERCIAL resent Medicare MEDICARE MEDICARE xxxxxxxxxxx 2016-P [facility], PART A AND resent [place] B [phone] [address] [facility] (Home) [facility] [place] [phone] Advance Directives For more information, please contact: [phone] Patient Paper Products Inspector Explanation Type Date Recorded Advance Directives, Living Will and Medical Power of Mint Machine Operator
--- OUTSIDE RECORDS SUMMARY | 2020-03-31 15:02 | XMS REPORT | Continuity of Care Document ---
Author Author Ashwini Julian InvenQuery, KATELYNN GARY Organization [employer] Address Unknown Phone Unavailable Care Team Providers Care Toppiece Cutter Name Role Phone [employer] Information Exchange Unavailable Un available Problems Problem Status Onset Date Classification Date Reported Comments Source Nausea with vomiting, unspecified 05/15/2018 11/29/2018 [facility] R11.2 / R10.11 / R14.0 Active 05/07/2018 [facility] 571.5 CIRRHOSIS Active 02/06/2015 [facility] 571.5 - CIRRHOSIS OF LI 789.00 - ABDMNAL Active 02/02/2015 [facility]RI[facility] Roberts Lumbosacral spondylosis Active Problem 02/13/2018 Marquis Lewer Chronic pain syndrome Active Diagnosis 02/13/2018 Marquis Saavedra Radiculopathy, lumbar region A ctive Problem Marquis Saavedra terminal carman (current) use of opiate analgesic Active Problem 02/13/2018 Marquis Saavedra Nausea Active Problem 02/13/2018 Marquis Saavedra Acute pain of left shoulder Ac tive Problem Marquisdaisy Saavedra Abdominal distension (gaseous) 11/29/2018 [facility] Right upper quadrant pain 11/29/2018 [facility] Change in bowel habit 11/29/2018 [facility] Disorientation, unspecified 11/29/2018 [facility] Nonalcoholic steatohepatitis (VARELA) 11/29/2018 [facility] Abnormal weight gain 11/29/2018 [facility] Personal history of colonic polyps 11/29/2018 [facility] Abdominal aortic aneurysm, without rupture 11/29/2018 [facility] Atherosclerosis of other arteries 11/29/2018 [facility] Unspecified cirrhosis of liver 11/29/2018 [facility] Varicose veins of other specified sites 11/29/2018 [facility] NAUSEA WITH VOMITING, UNSPECIFIED Active [facility] RIGHT UPPER QUADRANT PAIN Acti ve [facility] ABDOMINAL DISTENSION (GASEOUS) Active [facility] Medications Medication Details Route Status Patient Instructions Ordering Provider Order Date Source Omnipaque 350 injectable solution Notes: (same as:Omnipaque 350). WASTE: F/P - Black; E - Municipal Trash Bin Active 05/11/2018 [facility] Tramadol HCl 2 tablet as needed Orally Active 50 MG Orally every 8 hrs [facility] 02/22/2018 Marquis Saavedra Tramadol HCl 2 tablet as needed Orally Active 50 MG Orally every 8 hrs [facility] 12/21/2017 Marquis Saavedra Promethazine HCl 1 tablet as n eeded Orally Active 25 MG Orally TID [facility] 06/03/2017 Marquis Saavedra Fentanyl 1 patch to skin Transdermal Active 50 MCG/HR Transdermal Q72H [facility] 03/07/2017 Marquis Saavedra Promethazine HCl 1 tablet as n eeded Orally Active 25 MG Orally TID [facility] 03/06/2017 Marquis Saavedra Tramadol HCl 2 tablet as needed Orally Active 50 MG Orally every 8 hrs [facility] 03/05/2017 Marquis Saavedra Tramadol HCl 1 tablet as needed Orally Active 50 MG Orally every 6 hrs [facility] 12/23/2016 Marquis Saavedra Fentanyl 1 patch to skin Transdermal Active 25 MCG/HR Transdermal [facility] 12/23/2016 Marquis Saavedra Dexilant 1 capsule Orally Active 60 MG Orally Once a day [facility] Cliff Lewer Promethazine HCl 1 tablet as n eeded Orally Active 25 MG Orally TID [facility] Marquis Saavedra Atorvastatin Calcium 1 tablet Orally Active 40 MG Orally Once a day [facility] Marquis Saavedra Xanax 1 tablet Orally Active 1 MG Orally Twice a day [facility] Cliff Saavedra Phenergan 1 tablet as needed Orally Active 25 MG Orally TID [facility] Marquis Saavedra Fosinopril Sodium 1 tablet Orally Active 10 MG Orally Once a day [facility] Marquis Saavedra Promethazine HCl 1 tablet as n eeded Orally Active 12.5 MG Orally daily [facility] Marquis Saavedra Tramadol HCl 1 tablet as needed Orally Active 50 MG Orally every 6 hrs [facility] Marquis Saavedra Fentanyl 1 patch to skin Transdermal Active 50 MCG/HR Transdermal Q72H [facility] Marquis Saavedra Fosinopril Sodium 1 tablet Orally Active 10 MG Orally Once a day [facility] Marquis Saavedra Dexilant 1 capsule Orally Active 60 MG Orally Once a day [facility] Cliff michael Lewer Promethazine HCl 1 tablet as n eeded Orally Active 12.5 MG Orally daily [facility] Marquis Saavedra Fentanyl 1 patch to skin Transdermal Active 50 MCG/HR Transdermal Q72H [facility] Marquis Saavedra Xanax 1 tablet Orally Active 1 MG Orally Twice a day [facility] Cliff Saavedra Atorvastatin Calcium 1 tablet Orally Active 40 MG Orally Once a day [facility] Marquis Saavedra Tramadol HCl 2 tablet as needed Orally Active 50 MG Orally every 8 hrs [facility] Marquis Saavedra Dilaudid 1 tablet as needed Orally Active 4 MG Orally every 6 hrs [facility] Marquis Saavedra Oxycodone HCl 1 tablet as need ed Orally Active 10 MG Orally every 8 hrs PRN [facility] Marquis Saavedra Promethazine HCl 1 tablet as n eeded Orally Active 25 MG Orally every 12 hrs [facility] Marquis Saavedra Allergies, Adverse Reactions, Alerts Substance Category Reaction Severity Reaction type Status Date Reported Comments Source PENICILLEN Adverse Reaction anaphylaxis Adverse Reaction Active 10/22/2017 Marquis Saavedra KEFLEX Adverse Reaction anaphylaxis Adverse Reaction Active 10/22/2017 Marquis Saavedra penicillins Assertion Drug allergy Active [facility] tetracyclines Assertion Drug allergy Active [facility] cephalexin Assertion Drug allergy Active [facility] Immunizations No Data Provided for This Section Results Order Name Results Value Reference Range Date Interpretation Comments Source CHEM PANEL POC Creatinine 0.8 0.5 - 1.4 05/11/2018 [facility] CHEM PANEL eGFR 77 05/11/2018 Result Comment: The eGFR is calculated [...] should be multiplied by the estimated BMI. [facility] Pathology Reports No Data Provided for This Section Diagnostic Reports Report Value Date Source Abdomen/Pelvis CTA Patient Kale mares: KATELYNN BECKMAN : 1950; Age: 67 years Female MR: [id number] Study: Abdomen/Pelvis CTA 05/11/2018 6:58 AM CDT [...] control -Adjustment of the mA and/or kV accordin g to patient size -Use of iterative reconstruction technITT EXIM ue Radiation dose: 1108 mGycm IV contrast: 100 [...] MRI liver protocol for further characterization. SL: [id number] 05/11/2018 [facility] Abdomen w IV contrast [facility] with IV contrast, Feb 06, 2015 02:21:14 [...] early cirrhosis. 2. Mild distal left colonic diverticulos is. SL: 14 02/06/2015 [facility] Consultation Notes No Data Provided for This Section Discharge Summaries No Data Provided for This Section History and Physicals No Data Provided for This Section Vital Signs Vital Sign Value Date Comments Source Weight 149 10/22/2017 Marquis Saavedra Height 60 0 10/22/2017 Marquis Saavedra Temperature Oral (F) 97.4 F 10/22/2017 Marquis Saavedra Heart Rate 72 10/22/2017 Marquis Saavedra Diastolic (mm Hg) 80 10/22/2017 Marquis Saavedra Systolic (mm Hg) 150 10/22/2017 Marquis Saavedra Weight 146 07/23/2017 Marquis Saavedra Height 60 1 09/23/2016 Marquis Saavedra Temperature Oral (F) 98.2 F 07/23/2017 Marquis Saavedra Heart Rate 84 07/23/2017 Marquis Saavedra Diastolic (mm Hg) 80 07/23/2017 Marquis Saavedra Systolic (mm Hg) 142 07/23/2017 Marquis Saavedra Weight 150.7 03/05/2017 Marquis Saavedra Height 60 0 03/05/2017 Marquis Saavedra Temperature Oral (F) 97.8 F 03/05/2017 Marquis Saavedra Heart Rate 76 03/05/2017 Marquis Saavedra Diastolic (mm Hg) 80 03/05/2017 Marquis Saavedra Systolic (mm Hg) 132 03/05/2017 Marquis Saavedra Weight 147.5 02/05/2017 Marquis Saavedra Height 60 0 02/05/2017 Marquis Saavedra Temperature Oral (F) 98.5 F 02/05/2017 Marquis Saavedra Diastolic (mm Hg) 74 02/05/2017 Marquis Saavedra Systolic (mm Hg) 142 02/05/2017 Marquis Saavedra Weight 143 12/23/2016 Marquis Saavedra Height 60 0 12/23/2016 Marquis Saavedra Temperature Oral (F) 97.5 F 12/23/2016 Marquis Saavedra Heart Rate 84 12/23/2016 Marquis Saavedra Diastolic (mm Hg) 74 12/23/2016 Marquis Saavedra Systolic (mm Hg) 122 12/23/2016 Marquis Saavedra Weight 152.7 08/28/2016 Marquis Saavedra Height 60 0 08/28/2016 Marquis Saavedra Temperature Oral (F) 97.5 F 08/28/2016 Marquis Saavedra Diastolic (mm Hg) 60 08/28/2016 Marquis Saavedra Systolic (mm Hg) 100 08/28/2016 Marquis Saavedra Encounters Location Location Details Encounter Type Encounter Number Reason For Visit Attending Provider ADM Date DC Date Status Source [facility] Outpatient [id number] Malick Mathew 02/06/2015 02/07/2015 [facility] Mauro Saavedra MD [facility] [id number] 08/28/19 17 08/28/2016 Marquis Saavedra [facility] Outpatient [id number] Nando Pitts 05/11/2018 05/12/2018 [facility] Procedures No Data Provided for This Section Assessment and Plan No Data Provided for This Section Plan of Care No Data Provided for This Section Social History Social History Date Source No data available for this section 05/12/2018 [facility] Social History ElementQualifiersDate Rep orted Tobacco Use: . Are you a:: current smoker Aug 28, 2016 Pets: none. Aug 28, 2016 Marital Status: . Aug 28, 2016 Diet: no. Aug 28, 2016 Caffeine: no. Aug 28, 2016 Exercise: no. Aug 28, 2016 Alcohol: no. Aug 28, 2016 Travel outside [place]: no. Aug 28, 2016 Occup. exposure: none. Aug 28, 2016 Occupation: unemployed. Aug 28, 2016 08/28/2016 Marquis Saavedra Family History No Data Provided for This Section Advance Directives No Data Provided for This Section Functional Status No Data Provided for This Section
--- OUTSIDE RECORDS SUMMARY | 2020-03-31 15:02 | XMS REPORT | Continuity of Care Document ---
Author Author [facility] Organization [facility] Address [address] [place] [address] Phone Unavailable Care Team Providers Care Slot Operations Manager Name Role Phone Cami STINSON MD PCP Cami STINSON Attphys Unavailable Chad BUSCH Attphys Unavailable Chad CHOUDHURY Attphys Unavailable Nando Pitts Attphys Melvina DAMICO Attphys Unavailable MICHAEL BOO Attphys Unavailable Egwim, Kamran Chukwuma Attphys Cami STINSON Admphys Unavailable Egwim, Kamran Chukwuma Admphys Payers Payer Name Policy Type Policy Number Effective Date Expiration Date Cami gutierrez Medicare A & B [id number] 2016 00:00:00 Jose Elias Dc [facility] Cigna Ppo [id number] 2016 00:00:00 [facility] Cigna Hmo [id number] 2016 00:00:00 [facility] Problems Condition Name Condition Details Condition Category Status Onset Date Resolution Date Last Treatment Date Treating Clinician Comments Source 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 2 / R10.11 / R14.0 Active 05/07/2018 [facility] Active 2018-05-07 00:00:00 2018-05 06:48:00 Ashwini Jordan Abdominal pain Abdominal pain Problem Active 2015-04-01 00:00:00 [facility] 571.5 CIRRHOSIS 571. 5 CIRRHOSIS Active 02/06/2015 [facility] Active 2015-02-06 00:00:00 2015-02-06 13:55:00 Ashwini Jordan 571.5 - CIRRHOSIS OF LI 789.00 - ABDMNAL 571.5 - CIRRHOSIS OF LI 789.00 - ABDMNAL Active 02/02/2015 [facility] [place] Diagnosis Active 2015-02-02 00:01:00 2015-03-09 16:00:[address] [facility] Hypertension Hypertension Problem Active [facility] Vomiting Vomiting Problem Active [facility] Chronic pain syndrome Chronic pain disorder Problem Active [facility] Dehydration Dehydration Problem Active [facility] Intractable vomiting Intractable vomiting Problem Active [facility] Acute myocardial infarction Acute [place] Problem Active [facility] Chronic pain Chronic pain Problem Active [facility] Hypertensive urgency Hypertensive urgency Problem Active [facility] Hypokalemia Hypokalemia Problem Active [facility] Intractable vomiting with nausea Intractable vomiting with nause a Problem Active [facility] Obstipation Obstipation Problem Active [facility] Urinary tract infection UTI (urinary tract infection) Problem Active [facility] Elevated CK-MB level Elevated CK-MB level Problem Active [facility] Vomiting and diarrhea Vomiting and diarrhea Problem Active [facility] Abdominal distension (gaseous) Abdominal distension (gaseous) 11/29/2018 [facility] Problem 2018-11-29 06: 23:58 Ashwini Jordan Right upper quadrant pain Righ t upper quadrant pain 11/29/2018 [facility] Problem 2018-11-29 06:23:58 Ashwini Jordan Change in bowel habit Chaparro ge in bowel habit 11/29/2018 [facility] Problem 2018-11-29 06:23:58 Erik emoluke Jordan Disorientation, unspecified Di sorientation, unspecified 11/29/2018 [facility] Problem 2018-11-29 06:23:[address] [facility] Nonalcoholic steatohepatitis (VARELA) Nonalcoholic steatohepatitis (VARELA) 11/29/2018 [facility] Problem 2018-11-29 06:23:[address] [facility] Abnormal weight gain Abno rmal weight gain 11/29/2018 [facility] Problem 2018-11-29 06:23:58 Hi madiha Jordan Personal history of colonic polyps Personal history of colonic polyps 11/29/2018 [facility] 2018-11-03 8 06:23:[address] [facility] Abdominal aortic aneurysm, without rupture Abdominal aortic aneurysm, without rupture 11/29/2018 [facility] Problem 2018-11-29 06:23:[address] [facility] Atherosclerosis of other arteries Atherosclerosis of other arteries 11/29/2018 [facility] Problem 2018-11-03 8 06:23:[address] [facility] Unspecified cirrhosis of liver Unspecified cirrhosis of liver 11/29/2018 [facility] Problem 2018-11-29 06:23:[address] [facility] Varicose veins of other specified sites Varicose veins of other specified sites 11/29/2018 [facility] Problem 2018-11-29 06:23:[address] [facility] Lumbosacral spondylosis Lumb osacral spondylosis Active Problem 02/13/2018 Marquis Saavedra Problem Active 2018-02-13 02 :47:[address] 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 Nausea Naus ea Active Problem 02/13/2018 Marquis Saavedra Problem Active 2018-02-13 02:47:[address] [facility] Acute pain of left shoulder Ac peoria pain of left shoulder Active Problem 02/13/2018 Marquis Saavedra Problem Active 2018-02-13 02:47:[address] [facility] NAUSEA WITH VOMITING, UNSPECIFIED NAUSEA WITH VOMITING, UNSPECIFIED Active [facility] Diagnosis Active 2018-05-11 06 :48:[address] [facility] RIGHT UPPER QUADRANT PAIN RIGH T UPPER QUADRANT PAIN Active [facility] Active 2018-05-11 06:48:[address] [facility] ABDOMINAL DISTENSION (GASEOUS) ABDOMINAL DISTENSION (GASEOUS) Active [facility] Active 2018-05-11 06:48 :00 [facility] Nausea with vomiting, unspecified Nausea with vomiting, unspecified 05/15/2018 11/29/2018 [facility] Problem 20 21-05-12 03:58:57 2018-11-29 06:23:58 2018-11-29 06:23:[address] [facility] Allergies, Adverse Reactions, Alerts Allergy Name Allergy Type Status Severity Reaction(s) Onset Date Inacti ve Date Treating Clinician Comments Source Penicillin Allergy to Substance Active 2019-02-12 00:00:00 [facility] Tetracyclines Allergy to Substance Active 2019-02-12 00:00: 00 [facility] Cephalexin Propensity to adverse reactions to drug Active 2018-08-18 00:00:00 [place] [facility] Penicillins Propensity to adverse reactions to drug Active 2018-08-18 00:00:00 blisters [facility] Tetracyclines Propensity to adverse reactions to drug Active 2018-08-18 00:00:00 blisters [facility] KEFLEX KEFLEX Active anaphylaxis 2017-10-22 00:00:[address] [facility] Penicillin Allergy to Substance Active Mild BLISTERS ON PIERRE DS 2016-12-17 00:00:00 [facility] Cephalexin Allergy to Substance Active Mild BLISTERS ON PIERRE DS 2016-12-17 00:00:00 [facility] Tetracycline Allergy to Substance Active Mild BLISTERS ON H ANDS 2016-12-17 00:00:00 [facility] penicillins penicillins Active [facility] tetracyclines tetracyclines Active [facility] cephalexin cephalexin Active [facility] Social History Social Habit Start Date Stop Date Quantity Comments Source History of tobacco use Cigarette Smoker [place] [facility] History SDOH Alcohol Std Drinks [place] [facility] History SDOH Alcohol Binge [facility] Sex Assigned At Karli saran Muslim Cigarettes smoked current (pack per day) - Reported 00:00:00 2018-12-01 00:00:00 [place] [facility] Alcohol intake 2018-12-01 00:00:00 2018-12-01 00:00:00 Current non-drinker of alcohol (finding) Yosef Kim History SDOH Alcohol Frequency 2018-08-18 00:00:00 2018-08-18 00:00:0 0 1 Yosef Kim Social History 2018-05-12 04:59:00 2018-05-12 04:59:[address] [facility] TobaccoUse: 2016-08-28 00:00:00 2016-08-28 00:00:[address] [facility] Smoking Status Start Date Stop Date Source Current every day smoker 2018-12-01 00:00:00 Karli Kim Medications Ordered Medication Name Filled Medication Name Start Date Stop Da te Current Medication? Ordering Clinician Indication Dosage Frequency Signature (SIG) Comments Components Source ALPRAZolam (XANAX) 1 MG tablet 2018 15:10:22 Yes 2mg Q.5D Take 2 mg by mouth 2 (two) times a day. Yosef Kim fentaNYL (DURAGESIC) 50 mcg/hr 2018 15:10:22 Yes 1{patch} Q72H Place 1 patch on the skin every third day. Yosef Kim rosuvastatin (CRESTOR) 40 MG tablet 2018 15:10:22 Yes 40mg QD Take 40 mg by mouth daily. Yosef Kim oxyCODone (ROXICODONE) 5 MG immediate release tablet 2 15:10:22 Yes 5mg Q.5D Take 5 mg by mo uth 2 (two) times a day as needed for moderate pain. Yosef Kim fosinopril (MONOPRIL) 10 MG tablet 2018 15:10:22 Yes 10mg QD Take 10 mg by mouth daily. Yosef Kim metoprolol tartrate (LOPRESSOR) 25 mg tablet 2018 15:10:22 Yes 25mg Q.5D Take 25 mg by mouth 2 (two) times a day. Yosef Kim omeprazole (PriLOSEC) 40 MG capsule 2018 15:10:22 Yes 40mg QD Take 40 mg by mouth daily. Yosef Kim promethazine (PHENERGAN) 25 MG tablet 2018 15:10:22 Y es 25mg Q6H Take 25 mg by mouth every 6 (six) hours as needed for nausea or vomiting. Yosef Kim aspirin (ECOTRIN) 81 MG enteric coated tablet 2018 15:10:2 2 Yes 81mg QD Take 81 mg by mouth daily. H nikole Kim Omnipaque 350 injectable solution 2018-05-11 13:00:00 Yes Notes: (same as:Omnipaque 350). WASTE: F/P - Black; E - Municipal Trash Bin [facility] Tramadol HCl 2018-02-22 00:00:00 Yes Randy Mary 2 tablet as needed [facility] Tramadol HCl 2017-12-21 00:00:00 Yes Randy Mary 2 tablet as needed [facility] Fosinopril Sodium 2017-10-24 02:45:37 Yes [place] Mary [address] [facility] Dexilant 2017-10-24 02:45:37 Yes [place] Mary [address] [facility] Promethazine HCl 2017-10-24 02:45:37 Yes Randy Mary 1 tablet as needed [facility] Fentanyl 2017-10-24 02:45:37 Yes Randy Mary 1 pa tch to skin [facility] Xanax 2017-10-24 02:45:37 Yes Randy Mary [address] [facility] Atorvastatin Calcium 2017-10-24 02:45:37 Yes Randy Mary [address] [facility] Tramadol HCl 2017-07-25 03:45:16 Yes [place] Mary 2 tablet as needed [facility] Promethazine HCl 2017-06-03 00:00:00 Yes Randy Mary 1 tablet as needed [facility] Dexilant 2017-03-10 02:45:12 Yes Randy Mary 1 ca psule [facility] Atorvastatin Calcium 2017-03-10 02:45:12 Yes [place] Mary [address] [facility] Xanax 2017-03-10 02:45:12 Yes [place] Mary [address] [facility] Fosinopril Sodium 2017-03-10 02:45:12 Yes Randy Mary [address] [facility] Promethazine HCl 2017-03-10 02:45:12 Yes Randy Mary 1 tablet as needed [facility] Fentanyl 2017-03-10 02:45:12 Yes [place] Mary 1 pa tch to skin [facility] Fentanyl 2017-03-07 00:00:00 Yes [place] Mary 1 pa tch to skin [facility] Promethazine HCl 2017-03-06 00:00:00 Yes [place] Mary 1 tablet as needed [facility] Tramadol HCl 2017-03-05 00:00:00 Yes [place] Mary 2 tablet as needed [facility] Tramadol HCl 2017-02-08 02:45:47 Yes [place] Mary 1 tablet as needed [facility] Promethazine HCl 2017-02-06 02:46:34 Yes Randy Mary 1 tablet as needed [facility] Phenergan 2016-12-25 02:45:02 Yes Randy Mary 1 t ablet as needed [facility] Tramadol HCl 2016-12-23 00:00:00 Yes Randy Mary 1 tablet as needed [facility] Fentanyl 2016-12-23 00:00:00 Yes Randy Mary 1 pa tch to skin [facility] Dilaudid 2016-08-29 04:03:44 Yes [place] Mary 1 ta blet as needed [facility] Oxycodone HCl 2016-08-29 04:03:44 Yes Randy Mary 1 tablet as needed [facility] Promethazine HCl 2016-08-29 04:03:44 Yes Randy Mary 1 tablet as needed [facility] Alprazolam 1 Mg Tablet Alprazolam 1 Mg Tablet Yes 1 Daily [facility] Alprazolam (Xanax) 2 Mg Tablet Alprazolam (Xanax) 2 Mg Tablet Yes 3 Bedtime [facility] Fentanyl (Duragesic) 1 Each Patch.td72 Fentanyl (Duragesic) 1 Ea ch Patch.td72 Yes 50 [facility] Fosinopril Sodium 10 Mg Tablet Fosinopril Sodium 10 Mg Tablet Yes 10 Daily [facility] Hydromorphone Hcl (Dilaudid) 2 Mg Tab Hydromorphone Hcl (Dilaudid) 2 Mg Tab Yes 4 Every 12 Hours as needed for Pain [facility] Omeprazole 40 Mg Capsule. Omeprazole 40 Mg Capsule. Yes [address] [facility] Promethazine Hcl 25 Mg Tablet Promethazine Hcl 25 Mg Tablet Yes 25 Three Times A Day as needed for Nausea [facility] Alprazolam 1 Mg Tablet Alprazolam 1 Mg Tablet Yes 1 Twice A Day [facility] Alprazolam 1 Mg Tablet Alprazolam 1 Mg Tablet Yes 2 Bedtime [facility] Aspirin (Aspir 81) 81 Mg Tablet. Aspirin (Aspir 81) 81 Mg Tablet. Yes 81 Daily [facility] Clopidogrel Bisulfate (Clopidogrel) 75 Mg Tablet Clopi dogrel Bisulfate (Clopidogrel) 75 Mg Tablet Yes 75 Daily [facility] Fentanyl 1 Each Patch.td72 Fentanyl 1 Each Patch.td72 Yes 50 .q72h [facility] Fosinopril Sodium 10 Mg Tablet Fosinopril Sodium 10 Mg Tablet Yes 10 Daily [facility] Metoprolol Tartrate 25 Mg Tablet Metoprolol Tartrate 25 Mg Tablet Yes 25 Twice A Day [facility] Omeprazole 40 Mg Capsule. Omeprazole 40 Mg Capsule. Yes 20 Daily [facility] Oxycodone Hcl 20 Mg Tablet Oxycodone Hcl 20 Mg Tablet Yes 5 Twice A Day as needed for Pain [facility] Phenergan Phenergan Yes 25 Thre e Times A Day as needed for Nausea And Vomiting [facility] Rosuvastatin Calcium (Crestor) 10 Mg Tab Rosuvastatin Calcium (Crestor) 10 Mg Tab Yes 40 Daily [facility] Aspirin (Aspir 81) 81 Mg Tablet., 81 Mg Oral Aspirin (Aspir 81) 81 Mg Tablet., 81 Mg Oral 2019-05-06 00:00:00 No 81 Da rene [facility] Clopidogrel Bisulfate (Clopidogrel) 75 Mg Tablet, 75 M g Oral Clopidogrel Bisulfate (Clopidogrel) 75 Mg Tablet, 75 Mg Oral 2019-05-06 00:00:00 No 75 Daily [facility] Gabapentin 100 Mg Capsule, 100 Mg Oral Gabapentin 100 Mg Capsule , 100 Mg Oral 2019-05-06 00:00:00 No 100 Bedtime [facility] Propranolol Hcl 10 Mg Tablet, 10 Mg Oral Propranolol H cl 10 Mg Tablet, 10 Mg Oral 2019-05-06 00:00:00 No 10 Twice A Day [facility] Tramadol Hcl (Ultram) 50 Mg Tablet, 50 Mg Oral Tramado l Hcl (Ultram) 50 Mg Tablet, 50 Mg Oral 2019-05-06 00:00:00 No 50 Every 12 Hours as needed for Mild Pain (1-3) Or Fever>100.8 [facility] Oxycodone Hcl/Acetaminophen (Endocet 10- 325 Mg Tablet) 1 Each Tablet, 1 Tab Oral Oxycodone Hcl/Acetaminophen (Endocet 10- 325 Mg Tablet) 1 Each Tablet, 1 Tab Oral 2019-02-12 00:00:00 No 1 Every 8 Hours [facility] Alprazolam 1 Mg Tablet, 2 Mg Oral Alprazolam 1 Mg Tablet, 2 Mg O ral 2018-10-26 00:00:00 No 2 Four Times Daily as needed for Anxiety [facility] Lisinopril 10 Mg Tablet, 10 Mg Oral Lisinopril 10 Mg Tablet, 10 Mg Oral 2018-10-26 00:00:00 No 10 Daily [facility] Pantoprazole Sodium (Protonix) 40 Mg Tablet., 40 Mg Oral Pantoprazole Sodium (Protonix) 40 Mg Tablet.dr, 40 Mg Oral 2018-10-26 00:00:00 No 40 Twice Daily Before Meals [facility] Dexlansoprazole (Dexilant) 60 Mg Cap., 60 Mg Oral Dexlansoprazole (Dexilant) 60 Mg Cap., 60 Mg Oral 2018-06-14 00:00:00 No 60 Twice A Day [facility] Hydromorphone Hcl (Dilaudid) 2 Mg Tab, 4 Mg Oral [place] morphone Hcl (Dilaudid) 2 Mg Tab, 4 Mg Oral 2018-06-14 00:00:00 No 4 Three Times A Day as needed for Pain [facility] Metoclopramide Hcl (Reglan) 10 Mg Tablet, 10 Mg Oral M etoclopramide Hcl (Reglan) 10 Mg Tablet, 10 Mg Oral 2018-04-25 00:00:00 No 10 Three Times Daily With Meals [facility] Tramadol Hcl (Ultram) 50 Mg Tablet, 100 Mg Oral Tramad ol Hcl (Ultram) 50 Mg Tablet, 100 Mg Oral 2017-04-28 00:00:00 No 100 Every 8 Hours as needed for Pain [facility] Alprazolam (Xanax) 2 Mg Tablet, 1 Mg Oral Alprazolam ( Xanax) 2 Mg Tablet, 1 Mg Oral 2016-11-29 00:00:00 No 1 Three Times A Day [facility] Alprazolam (Xanax) 0.5 Mg Tablet, 1 Mg Oral Alprazolam (Xanax) 0.5 Mg Tablet, 1 Mg Oral 2016-11-22 00:00:00 No 1 Bedtime [facility] Ciprofloxacin Hcl (Cipro) 500 Mg Tablet, 500 Mg Oral C iprofloxacin Hcl (Cipro) 500 Mg Tablet, 500 Mg Oral 2016-11-22 00:00:00 No 500 Every 12 Hours [facility] Oxycodone Hcl 10 Mg Tablet, 10 Mg Oral Oxycodone Hcl 10 Mg Table t, 10 Mg Oral 2016-11-22 00:00:00 No 10 Three Times A Day as needed for Pain [facility] Atorvastatin Calcium (Lipitor) 40 Mg Tablet, 40 Mg Ora l Atorvastatin Calcium (Lipitor) 40 Mg Tablet, 40 Mg Oral 2016-07-11 00:00:00 No 4 0 Daily [facility] Hydromorphone Hcl 2 Mg Tablet, 4 Mg Oral Hydromorphone Hcl 2 Mg Tablet, 4 Mg Oral 2016-07-11 00:00:00 No 4 Every 8 Hours as n eeded for Pain [facility] Aspirin (Aspirin Chew) 81 Mg Chew, 81 Mg Oral Aspirin (Aspirin Chew) 81 Mg Chew, 81 Mg Oral 2015-07-17 00:00:00 No 81 Daily [facility] Alprazolam (Xanax) 2 Mg Tablet, 1 Mg Oral Alprazolam ( Xanax) 2 Mg Tablet, 1 Mg Oral 2015-04-03 00:00:00 No 1 Daily [facility] Alprazolam (Xanax) 2 Mg Tablet, 4 Mg Oral Alprazolam ( Xanax) 2 Mg Tablet, 4 Mg Oral 2015-04-03 00:00:00 No 4 Bedtime [facility] Hydrocodone Bit/Acetaminophen ([place] 5-325 Tablet) 1 E ach Tablet, Oral Hydrocodone Bit/Acetaminophen ([place] 5-325 Tablet) 1 Each Tablet, Oral 2015-04-01 00:00:00 No As Needed [facility] Monopril , 10 Mg Oral Monopril , 10 Mg Oral 2015-04-01 00:00:00 No 10 Twice A Day [facility] Promethazine Hcl (Phenergan Supp*) 25 Mg Supp, Oral Promethazine Hcl (Phenergan Supp*) 25 Mg Supp, Oral 2013-12-20 00:00:00 No As Needed [facility] Metformin Hcl (Glucophage) 500 Mg Tablet, 500 Mg Oral Metformin Hcl (Glucophage) 500 Mg Tablet, 500 Mg Oral 2013-12-04 00:00:00 No 500 Twice A Day [facility] Vital Signs Vital Name Observation Time Observation Value Comments Source Weight 2017-10-22 18:45:00 [facility] Height 2017-10-22 18:45:00 [facility] Temperature Oral (F) 2017-10-22 18:45:00 97.4 F [facility] Heart Rate 2017-10-22 18:45:00 [facility] Diastolic (mm Hg) 2017-10-22 18:45:00 [facility] Systolic (mm Hg) 2017-10-22 18:45:00 Matt ria [facility] Weight 2017-07-23 14:45:00 [facility] Height 2017-07-23 14:45:00 [facility] Temperature Oral (F) 2017-07-23 14:45:00 98.2 F [facility] Heart Rate 2017-07-23 14:45:00 [facility] Diastolic (mm Hg) 2017-07-23 14:45:00 [facility] Systolic (mm Hg) 2017-07-23 14:45:00 Matt [facility] Weight 2017-03-05 13:15:00 [facility] Height 2017-03-05 13:15:00 [facility] Temperature Oral (F) 2017-03-05 13:15:00 97.8 F [facility] Heart Rate 2017-03-05 13:15:00 [facility] Diastolic (mm Hg) 2017-03-05 13:15:00 [facility] Systolic (mm Hg) 2017-03-05 13:15:00 Matt rial [facility] Weight 2017-02-05 13:00:00 [facility] Height 2017-02-05 13:00:00 [facility] Temperature Oral (F) 2017-02-05 13:00:00 98.5 F [facility] Diastolic (mm Hg) 2017-02-05 13:00:00 [facility] Systolic (mm Hg) 2017-02-05 13:00:00 Matt rial [facility] Weight 2016-12-23 13:00:00 [facility] Height 2016-12-23 13:00:00 [facility] Temperature Oral (F) 2016-12-23 13:00:00 97.5 F [facility] Heart Rate 2016-12-23 13:00:00 [facility] Diastolic (mm Hg) 2016-12-23 13:00:00 [facility] Systolic (mm Hg) 2016-12-23 13:00:00 Matt rial [facility] Weight 2016-08-28 20:30:00 [facility] Height 2016-08-28 20:30:00 [facility] Temperature Oral (F) 2016-08-28 20:30:00 97.5 F [facility] Diastolic (mm Hg) 2016-08-28 20:30:00 [facility] Systolic (mm Hg) 2016-08-28 20:30:00 Matt [facility] Procedures Procedure Date / Time Performed Performing Clinician [facility] e CT of abdomen and pelvis without contrast 2019-05-06 00:00:00 CHRISTOPHER CARRIZALES [facility] INSERTION OF INFUSION DEV INTO SUP VENA CAVA, PERC APPROACH 2019-02-15 00:00:00 MARTIN STINSON [facility] ULTRASONOGRAPHY OF SUPERIOR VENA CAVA, GUIDANCE 2019-02-15 0 0:00:00 MARTIN STINSON [facility] Computed tomography of abdomen and pelvis with contrast 2018 00:00:00 CLEMENCIA ROBERTS [facility] Computed tomography of abdomen and pelvis with contrast 2018 00:00:00 YECENIA HUNTER [facility] Magnetic resonance imaging of abdomen without then wit h contrast 2018-07-06 00:00:00 MARTIN STINSON [facility] Computed tomography of abdomen and pelvis with contrast 2017 00:00:00 RENAE CHOUDHURY [facility] Computed tomography of brain without radiopaque contrast 201 03-12-22 00:00:00 ROGELIO DAMICO [facility] Computed tomography of abdomen and pelvis with contrast 2017 00:00:00 MICHAEL BOO [facility] Ultrasound guidance for vascular access 2018-03-03 00:00:00 MICHAEL NAVARRO [facility] Encounters Start Date/Time End Date/Time Encounter Type Admission Type [facility] Care Department Encounter ID Source 2019-05-06 13:13:00 2019-05-09 09:43:00 Discharged Inpatient 1 MARTIN STINSON [facility] [id number] [facility] 2019-02-12 09:03:00 2019-02-17 09:17:00 Discharged Inpatient 1 MARTIN STINSON [facility] [id number] [facility] 2018-10-26 06:05:00 2018-10-29 10:33:00 Discharged Inpatient 1 MARTIN STINSON [facility] [id number] [facility] 2018-07-06 16:58:00 2018-07-06 16:58:00 Registered Clinic 3 MARTIN STINSON [facility] [id number] [facility] 2018-06-15 07:18:00 2018-06-16 10:37:00 Discharged Inpatient 1 RENAE CHOUDHURY [facility] [id number] [facility] [facility] 2018[facility]-11 06:38:00 2018-05-11 23:59:00 Outpatient [place] [id number] 2018-05-11 06:38:00 2018-05-11 23:59:00 Outpatient [place]att [place] [id number] 2018-05-11 06:38:00 2018-05-11 23:59:00 Outpatient Patt Pitts [facility] [id number] 2018-04-25 13:00:00 2018-04-28 09:01:00 Discharged Inpatient (obs) 1 ROGELIO DAMICO [facility] [id number] [facility] 2018-03-03 07:29:00 2018-03-03 07:29:00 Registered Clinic 3 MICHAEL BOO [facility] [id number] [facility] 2018-02-12 10:11:00 2018-02-12 10:11:00 [facility]patient [facility] [id number] STUART Saavedra MD 2018-01-26 09:08:00 2018-01-26 09:08:00 Outpatient [facility] [id number] Marquis Saavedar MD 2017-12-31 07:12:00 2017-12-31 07:12:00 Registered Clinic 3 MICHAEL BOO [facility] [id number] [facility] 2017-11-26 11:12:00 2017-11-26 11:12:00 Registered Clinic EL MARTIN STINSON [facility] [id number] [facility] 2017-11-24 11:26:00 2017-11-24 11:26:00 Outpatient [facility] [id number] STUART Saavedra MD 2017-11-11 15:32:00 2017-11-11 15:32:00 Outpatient [facility] [id number] MH Marquis Saavedra MD 2017-10-27 08:58:00 2017-10-27 08:58:00 Outpatient [facility] [id number] Marquis Saavedra MD 2017-10-22 13:45:00 2017-10-22 13:45:00 Outpatient [facility] [id number] Marquis Saavedra MD 2017-07-23 08:45:00 2017-07-23 08:45:00 Outpatient [facility] [id number] Marquis Saavedra MD 2017-03-06 10:08:00 2017-03-06 10:08:00 Outpatient [facility] [id number] Marquis Saavedra MD 2017-03-05 08:15:00 2017-03-05 08:15:00 Outpatient [facility] [id number] Marquis Saavedra MD 2017-02-06 16:44:00 2017-02-06 16:44:00 Outpatient [facility] [id number] Marquis Saavedra MD 2017-02-06 14:47:00 2017-02-06 14:47:00 Outpatient [facility] [id number] Marquis Saavedra MD 2017-02-05 08:00:00 2017-02-05 08:00:00 Outpatient [facility] [id number] Marquis Saavedra MD 2016-12-24 08:30:00 2016-12-24 08:30:00 Outpatient [facility] [id number] Marquis Saavedra MD 2016-12-23 08:00:00 2016-12-23 08:00:00 Outpatient [facility] [id number] Marquis Saavedra MD 2016-12-18 08:55:00 2016-12-18 08:55:00 [facility] [id number] Marquis Saavedra MD 2016-12-02 09:36:00 2016-12-02 09:36:00 Outpatient [facility] [id number] STUART Saavedra MD 2016-08-28 14:30:00 2016-08-28 14:30:00 Outpatient MD Mauro Anna MD [id number] STUART Saavedra MD 2015-02-06 13:45:00 2015-02-06 23:59:[address] [facility] [id number] Results Test Description Test Time Test Comments Results Result Comments Source Sodium Level 2019-05-08 06:47:00 Test Item Sodium Level (test code = 2951-2) 142 136-145 [facility]Pot[facility] Adnnd6854-41-68 06:47:00* Test Item Value Reference Range Interpretation Comments Potassium Level (test code = 2823-3) 3.6 3.5-5.1 [facility] CenterChloride Xehtu9049-28-79 06:47:00* Test Item Value Reference Range Interpretation Comments Chloride Level (test code = 2075-0) 112 98-107 H [facility] CenterCarbon Dioxide Cixkw8186-65-93 06:47:00* Test Item Value Reference Range Interpretation Comments Carbon Dioxide Level (test code = 2028-9) 24 22-29 [facility] CenterAnion Lsr4105-50-85 06:47:00* Test Item Value Reference Range Interpretation Comments Anion Gap (test code = 21765-4) 9.6 8-16 [facility] CenterBlood Urea Orpiqgrs3601-06-54 06:47:00* Test Item Value Reference Range Interpretation Comments Blood Urea Nitrogen (test code = 3094-0) 12 7-26 [facility] CenterCreatinine2019-10-05 06:47:00* Test Item Value Reference Range Interpretation Comments Creatinine (test code = 2160-0) 0.80 0.57-1.11 [facility] CenterBUN/Creatinine Ndmtr2628-61-75 06:47:00* Test Item Value Reference Range Interpretation Comments BUN/Creatinine Ratio (test code = 3097-3) 15 6-25 [facility] CenterEstimat Glomerular Filtration Rate 2019-05-08 06:47:00* Test Item Value Reference Range Interpretation Comments Estimat Glomerular Filtration Rate (test code = 519554519) > 60 >60 Ranges were taken from the National Kidney Disease Education Program and the [facility] access hospital Kidney Foundation literature.Reference ranges:60 or greater: Nntpgm13-56 ( for 3 consecutive months): Chronic kidney disease 15 or less: Kidney failureMethodist Charlton Medical CenterGlucose Ovuxb5805-97-27 06:47:00* Test Item Value Reference Range Interpretation Comments Glucose Level (test code = CEM9588) 76 74-118 [facility] CenterCalcium Rshvd3640-46-82 06:47:00* Test Item Value Reference Range Interpretation Comments Calcium Level (test code = 03473-0) 8.1 8.4-10.2 L [facility] CenterWhite Blood Qnxue9121-47-96 06:31:00* Test Item Value Reference Range Interpretation Comments White Blood Count (test code = 6690-2) 5.40 4.8-10.8 [facility] CenterRed Blood Seijs7445-65-89 06:31:00* Test Item Value Reference Range Interpretation Comments Red Blood Count (test code = 789-8) 3.60 3.6-5.1 [facility] CenterHemoglobin2019-10-05 06:31:00* Test Item Value Reference Range Interpretation Comments Hemoglobin (test code = 13434-9) 10.8 12.0-16.0 L [facility] CenterHematocrit2019-10-05 06:31:00* Test Item Value Reference Range Interpretation Comments Hematocrit (test code = 4544-3) 33.4 34.2-44.1 L [facility] CenterMean Corpuscular Plefnm6564-51-29 06:31:00* Test Item Value Reference Range Interpretation Comments Mean Corpuscular Volume (test code = 787-2) 92.8 81-99 [facility] CenterMean Corpuscular Xyzsmpeqxa1734-14-68 06:31:00* Test Item Value Reference Range Interpretation Comments Mean Corpuscular Hemoglobin (test code = 785-6) 30.0 28-32 [facility] CenterMean Corpuscular Hemoglobin Concent 2019-05-08 06:31:00* Test Item Value Reference Range Interpretation Comments Mean Corpuscular Hemoglobin Concent (test code = 786-4) 32.3 31-35 [facility] CenterRed Cell Distribution Bbvjy1494-72-17 06:31:00* Test Item Value Reference Range Interpretation Comments Red Cell Distribution Width (test code = 12118-5) 13.9 11.7 -14.4 [facility] CenterPlatelet Uoxaz8036-91-61 06:31:00* Test Item Value Reference Range Interpretation Comments Platelet Count (test code = 777-3) 110 140-360 L [facility] CenterNeutrophils (%) (Auto)2019-05-08 06:31:00 * Test Item Value Reference Range Interpretation Comments Neutrophils (%) (Auto) (test code = 31869-5) 51.1 38.7-80.0 [facility] CenterLymphocytes (%) (Auto)2019-05-08 06:31:00 * Test Item Value Reference Range Interpretation Comments Lymphocytes (%) (Auto) (test code = 736-9) 37.4 18.0-39.1 [facility] CenterMonocytes (%) (Auto)2019-05-08 06:31:00* Test Item Value Reference Range Interpretation Comments Monocytes (%) (Auto) (test code = 5905-5) 9.8 4.4-11.3 [facility] CenterEosinophils (%) (Auto)2019-05-08 06:31:00 * Test Item Value Reference Range Interpretation Comments Eosinophils (%) (Auto) (test code = 713-8) 0.9 0.0-6.0 [facility] CenterBasophils (%) (Auto)2019-05-08 06:31:00* Test Item Value Reference Range Interpretation Comments Basophils (%) (Auto) (test code = 706-2) 0.4 0.0-1.0 [facility] CenterIM GRANULOCYTES %2019-05-08 06:31:00* Test Item Value Reference Range Interpretation Comments IM GRANULOCYTES % (test code = IM GRANULOCYTES %) 0.4 0.0- 1.0 [facility] CenterNeutrophils # (Auto)2019-05-08 06:31:00* Test Item Value Reference Range Interpretation Comments Neutrophils # (Auto) (test code = 751-8) 2.8 2.1-6.9 [facility] CenterLymphocytes # (Auto)2019-05-08 06:31:00* Test Item Value Reference Range Interpretation Comments Lymphocytes # (Auto) (test code = 37752-7) 2.0 1.0-3.2 [facility] CenterMonocytes # (Auto)2019-05-08 06:31:00* Test Item Value Reference Range Interpretation Comments Monocytes # (Auto) (test code = 742-7) 0.5 0.2-0.8 [facility] CenterEosinophils # (Auto)2019-05-08 06:31:00* Test Item Value Reference Range Interpretation Comments Eosinophils # (Auto) (test code = 711-2) 0.1 0.0-0.4 [facility] CenterBasophils # (Auto)2019-05-08 06:31:00* Test Item Value Reference Range Interpretation Comments Basophils # (Auto) (test code = 704-7) 0.0 0.0-0.1 [facility] CenterAbsolute Immature Granulocyte (auto 2019-05-08 06:31:00* Test Item Value Reference Range Interpretation Comments Absolute Immature Granulocyte (auto (amanda t code = Absolute Immature Granulocyte (auto) 0.02 0-0.1 [facility] CenterCHEST XRAY LINE UKRWCYSXR0427-54-39 14:57:00 [facility] [address] [place] [address] Patient Name: KATELYNN CARNEY MR #: [id number] : 1950 Age/Sex: 68/F Req #: [id number] Adm Physician: MARTIN STINSON MD Ordered by: CHRISTOPHER PELAEZ MD Report #: [id number] Location: [facility]OLD Room/Bed: [place] [address] Procedure: 1003-00 51 DX/CHEST XRAY LINE PLACEMENT Exam Date: Exam Star e: REPORT STATUS: Signed Chest, 1 view, 05/06/2019. History: PICC placement. Comparison: 2018. Findings: The cardiomediastinal silhouette and pulmonary vasculature are within normal limits for a portable exam. There is no focal consolidation or pleural effusion. Left upper extremity PICC line terminates near the cavoat rial junction. There are no acute osseous or soft tissue abnormalities. Impression: No acute cardiopulmonary abnormality. PICC is in adequate positio n. Signed by: Tariq Alcantara on 05/06/2019 2:58 PM Dictated By: DARYL ALCANTARA MD 1458 Transcr ibed By: JAY JAY on 05/06/19 1458 COPY TO: CHRISTOPHER PELAEZ MD CT ABDOMEN/PELVIS [id number] 12:06:[address] [address] Patient Name: KATELYNN CARNEY MR #: [id number] : 1950 Age/Sex: 68/F Req #: [id number] Adm Physician: Ordered by: CHRISTOPHER PELAEZ MD Report #: [id number] Location: ER Room/Bed: Procedure: [id number] CT/CT ABDOMEN/PELVIS WO Exam Date: Exam Time: REPORT STATUS: Signed CT of the abdomen and pelvis, without contrast, 05/06/2019. History: Ab dominal pain, vomiting. Comparison: 02/12/2019. Technique: Multidetecto r CT scanning of the abdomen and pelvis was performed from the level of the skyler ng bases to the inferior pubic rami without intravenous or oral contrast. Cor onal and sagittal multiplanar reformations were obtained. RADIATION DOSE: Total DLP: 658 mGy*cm Dose modulation, iterative reconstruction, an d/or weight based adjustment of the mA/kV was utilized to reduce the radiation dose to as low as reasonably achievable. Discussion: Examination is palomino ited without contrast. Lung bases: No visualized abnormalities. Abdomen: There is diffuse low-density of the liver and slight nodularity of the liver s urface contour. Cholecystectomy clips are present. 1.7 cm exophytic left renal cyst is again noted, measuring 22 Hounsfield units in density. The biliary tr ee, spleen, pancreas, adrenal glands, and right kidney are unremarkable. 4.4 c m infrarenal abdominal aortic aneurysm is unchanged. Proximal SMA stent is aga in noted. There is diffuse calcification of the abdominal aorta and iliac vess els. Bilateral iliac stents are noted. There is no bowel dilatation. Scattered colonic diverticuli are again noted without evidence of adjacent inflammation. There is no evidence of adenopathy or free fluid. Pelvis: The bladder is unremarkable. The uterus and adnexa are not visualized. There is no eviden ce of free fluid or adenopathy. Bones and soft tissues: Degenerative judd es are present throughout the lumbar spine without evidence of lytic or sclero tic lesion. IMPRESSION: 1. Stable 4.4 cm infrarenal abdominal aorti c aneurysm. This should be followed every 12 months. Recommend vascular consul tation. 2. Mildly cirrhotic appearance of the liver, with diffuse fatty infilt ration. Correlate with LFTs. 3. Stable left renal lesion, possibly a hyperde nse cyst. Consider further evaluation with renal ultrasound. 4. Colonic dive rticulosis without evidence of diverticulitis. 5. Status post cholecystectomy and hysterectomy. Otherwise unremarkable noncontrast exam. Signed b y: Tariq Alcantara on 05/06/2019 12:16 PM Dictated By: TARIQ ALCANTARA MD Tootie ctronically Signed By: TARIQ ALCANTARA MD on 05/06/191215 Transcribed By: LEO Metz on 05/06/196 COPY TO: CHRISTOPHER PELAEZ MD Creatine Kinase [id number] 11:33:00* Test Item Value Reference Range Interpretation Comments Creatine Kinase MB (test code = 04865-1) < 1.00 0-4.3 [facility] CenterUrine Jepfl3090-03-60 10:51:00* Test Item Value Reference Range Interpretation Comments Urine Color (test code = 5778-6) YELLOW YELLOW [facility] CenterUrine Nobvtje0973-14-23 10:51:00* Test Item Value Reference Range Interpretation Comments Urine Clarity (test code = 50085-3) SL CLOUDY CLEAR [facility] CenterUrine Specific Tcmgpru1357-44-84 10:51:00 * Test Item Value Reference Range Interpretation Comments Urine Specific [place] (test code = 5811-5) 1.015 1.010-1.02 5 [facility] CenterUrine qS3927-78-53 10:51:00* Test Item Value Reference Range Interpretation Comments Urine pH (test code = 52993-1) 6.5 5-7 [facility] CenterUrine Leukocyte Loryamus6760-93-87 10:51:00* Test Item Value Reference Range Interpretation Comments Urine Leukocyte Esterase (test code = 5799-2) NEGATIVE NEGATIVE [facility] CenterUrine Kvftgsc0257-63-58 10:51:00* Test Item Value Reference Range Interpretation Comments Urine Nitrite (test code = 79638-4) NEGATIVE NEGATIVE [facility] CenterUrine Paszfrt6229-23-17 10:51:00* Test Item Value Reference Range Interpretation Comments Urine Protein (test code = 5804-0) NEGATIVE NEGATIVE [facility] CenterUrine Glucose (UA)2019-05-06 10:51:00* Test Item Value Reference Range Interpretation Comments Urine Glucose (UA) (test code = 2349-9) 1+ NEGATIVE H [facility] Djgxnal0346-75-87 10:51:00* Test Item Value Reference Range Interpretation Comments Urine Ketones (test code = 72637-4) NEGATIVE NEGATIVE [facility] Nsgkkwitjqzy6415-63-51 10:51:00* Test Item Value Reference Range Interpretation Comments Urine Urobilinogen (test code = 08078-0) 0.2 0.2-1 [facility] CenterUrine Mdxsjlmvh2268-21-94 10:51:00* Test Item Value Reference Range Interpretation Comments Urine Bilirubin (test code = 1978-6) NEGATIVE NEGATIVE [facility] CenterUrine Nxuik9756-09-94 10:51:00* Test Item Value Reference Range Interpretation Comments Urine Blood (test code = 61939-1) NEGATIVE NEGATIVE [facility] CenterU[facility] MCQ3393-32-72 10:51:00* Test Item Value Reference Range Interpretation Comments Urine WBC (test code = 5821-4) 0-5 0-5 [facility] CenterU[facility] DGT1747-44-83 10:51:00* Test Item Value Reference Range Interpretation Comments Urine RBC (test code = 40207-7) 0-5 0-5 [facility] CenterUrine Vkqeatot8587-88-34 10:51:00* Test Item Value Reference Range Interpretation Comments Urine Bacteria (test code = 01754-8) RARE NONE [facility] CenterUrine Epithelial Qtkah0279-83-87 10:51:00 * Test Item Value Reference Range Interpretation Comments Urine Epithelial Cells (test code = 72952-6) FEW NONE [facility] CenterTroponin B1283-26-68 10:46:00* Test Item Value Reference Range Interpretation Comments Troponin I (test code = YYU6425) 0.080 0-0.300 [facility] CenterMagnesium Lmfte9305-10-18 10:36:00* Test Item Value Reference Range Interpretation Comments Magnesium Level (test code = 12502-1) 2.1 1.3-2.1 [facility] CenterTotal Rijvfbqtj2316-83-10 10:36:00* Test Item Value Reference Range Interpretation Comments Total Bilirubin (test code = 1975-2) 0.9 0.2-1.2 [facility] CenterAspartate Amino Transf (AST/SGOT) 2019-05-06 10:36:00* Test Item Value Reference Range Interpretation Comments Aspartate Amino Transf (AST/SGOT) (test code = Aspartate Amino Transf (AST/SGOT)) 32 5-34 [facility] CenterAlanine Aminotransferase (ALT/SGPT) 2019-05-06 10:36:00* Test Item Value Reference Range Interpretation Comments Alanine Aminotransferase (ALT/SGPT) (test code = 1742-6) 18 0-55 [facility] CenterTotal Bqtlfwk6649-49-78 10:36:00* Test Item Value Reference Range Interpretation Comments Total Protein (test code = 2885-2) 9.1 6.5-8.1 H [facility] CenterAlbumin2019-10-03 10:36:00* Test Item Value Reference Range Interpretation Comments Albumin (test code = 1751-7) 4.7 3.5-5.0 [facility] CenterGlobulin2019-10-03 10:36:00* Test Item Value Reference Range Interpretation Comments Globulin (test code = 35088-6) 4.4 2.3-3.5 H [facility] CenterAlbumin/Globulin Foagd9326-61-59 10:36:00 * Test Item Value Reference Range Interpretation Comments Albumin/Globulin Ratio (test code = 1759-0) 1.1 0.8-2.0 [facility] CenterAlkaline Pvvdcofwnzu8143-97-83 10:36:00* Test Item Value Reference Range Interpretation Comments Alkaline Phosphatase (test code = 6768-6) 110 40-150 [facility] CenterCreatine Pvnisc4427-84-55 10:36:00* Test Item Value Reference Range Interpretation Comments Creatine Kinase (test code = 2157-6) 129 29-168 [facility] CenterAmylase Mbxoi3198-21-06 10:36:00* Test Item Value Reference Range Interpretation Comments Amylase Level (test code = 1798-8) 69 25-125 [facility] CenterLipase2019-10-03 10:36:00* Test Item Value Reference Range Interpretation Comments Lipase (test code = 3040-3) 9 8-78 [facility] CenterCHEST XRAY LINE WQIIVKBFA0390-25-71 16:23:00 [facility] [address] [place] [address] Patient Name: KATELYNN CARNEY MR #: [id number] : 1950 Age/Sex: 68/F Req #: [id number] Adm Physician: MARTIN STINSON MD Ordered by: MARTIN STINSON MD Report #: [id number] Location: MED/SURG Room/Bed: [facility] Procedure: [id number] 8 DX/CHEST XRAY LINE PLACEMENT Exam Date: 02/15/19 E xam Time: 1551 REPORT STATUS: Tarah d EXAMINATION: CHEST XRAY LINE PLACEMENT INDICATION: PICC placement COMPARISON: None FINDINGS: TUBES and LINES: Right PICC line t erminates in the superior vena cava near the confluence of innominate veins. LUNGS: The lung volumes are normal. No focal consolidation or pulmonary micheline ma. PLEURA: No pleural effusion or pneumothorax. HEART AND MEDIASTIN UM: The cardiomediastinal silhouette is normal in size and contour. Left coron glendy arterial stent. Atherosclerotic calcifications of the thoracic aorta. BONES AND SOFT TISSUES: No acute fracture or dislocation. UPPER ABDOMEN: No free air under the diaphragm. IMPRESSION: PICC line terminates in the SVC near the confluence of innominate veins. No focal pneumonia or pulmonar y edema. Signed by: Ankit Leblanc MD on 02/15/2019 4:25 PM Dictated By: ANKIT LEBLANC MD 24 Transc ribed By: JAY JAY on 02/15/191624 COPY TO: MARTIN STINSON MD Sodium Qhknz8911-99-75 06:08:00* Test Item Value Reference Range Interpretation Comments Sodium Level (test code = 2951-2) 135 136-145 L [facility] CenterPotassium Xnlzw2285-80-95 06:08:00* Test Item Value Reference Range Interpretation Comments Potassium Level (test code = 2823-3) 3.8 3.5-5.1 [facility] CenterChloride Yskgc1447-01-34 06:08:00* Test Item Value Reference Range Interpretation Comments Chloride Level (test code = 2075-0) 101 98-107 [facility] CenterCarbon Dioxide Jjntd6698-09-34 06:08:00* Test Item Value Reference Range Interpretation Comments Carbon Dioxide Level (test code = 2028-9) 21 22-29 L [facility] CenterAnion Npm9331-66-33 06:08:00* Test Item Value Reference Range Interpretation Comments Anion Gap (test code = 72350-4) 16.8 8-16 H [facility] CenterBlood Urea Yjtquncb0683-19-48 06:08:00* Test Item Value Reference Range Interpretation Comments Blood Urea Nitrogen (test code = 3094-0) 20 7-26 [facility] CenterCreatinine2019-07-15 06:08:00* Test Item Value Reference Range Interpretation Comments Creatinine (test code = 2160-0) 0.89 0.57-1.11 [facility] CenterBUN/Creatinine Jwlnb5171-28-88 06:08:00* Test Item Value Reference Range Interpretation Comments BUN/Creatinine Ratio (test code = 3097-3) 22 6-25 [facility] CenterEstimat Glomerular Filtration Rate 2019-02-15 06:08:00* Test Item Value Reference Range Interpretation Comments Estimat Glomerular Filtration Rate (test code = 034587846) > 60 >60 Ranges were taken from the National Kidney Disease Education Program and the [facility] access hospital Kidney Foundation literature.Reference ranges:60 or greater: Qjhzol10-66 ( for 3 consecutive months): Chronic kidney disease 15 or less: Kidney failureMethodist Charlton Medical CenterGlucose Kfovd1945-93-55 06:08:00* Test Item Value Reference Range Interpretation Comments Glucose Level (test code = NHP0867) 117 74-118 [facility] CenterCalcium Fdoie9410-59-38 06:08:00* Test Item Value Reference Range Interpretation Comments Calcium Level (test code = 32228-8) 9.2 8.4-10.2 [facility] CenterWhite Blood Bgjnm1944-10-85 05:29:00* Test Item Value Reference Range Interpretation Comments White Blood Count (test code = 6690-2) 10.77 4.8-10.8 [facility] CenterRed Blood Jnloe8182-52-15 05:29:00* Test Item Value Reference Range Interpretation Comments Red Blood Count (test code = 789-8) 4.67 3.6-5.1 [facility] CenterHemoglobin2019-07-15 05:29:00* Test Item Value Reference Range Interpretation Comments Hemoglobin (test code = 30874-0) 13.7 12.0-16.0 [facility] CenterHematocrit2019-07-15 05:29:00* Test Item Value Reference Range Interpretation Comments Hematocrit (test code = 4544-3) 41.1 34.2-44.1 [facility] CenterMean Corpuscular Zymchk9370-19-69 05:29:00* Test Item Value Reference Range Interpretation Comments Mean Corpuscular Volume (test code = 787-2) 88.0 81-99 [facility] CenterMean Corpuscular Kxwwvufsle8898-46-17 05:29:00* Test Item Value Reference Range Interpretation Comments Mean Corpuscular Hemoglobin (test code = 785-6) 29.3 28-32 [facility] CenterMean Corpuscular Hemoglobin Concent 2019-02-15 05:29:00* Test Item Value Reference Range Interpretation Comments Mean Corpuscular Hemoglobin Concent (test code = 786-4) 33.3 31-35 [facility] CenterRed Cell Distribution Vugti3274-10-22 05:29:00* Test Item Value Reference Range Interpretation Comments Red Cell Distribution Width (test code = 05807-4) 14.6 11.7 -14.4 H [facility] CenterPlatelet Zunbq5713-21-36 05:29:00* Test Item Value Reference Range Interpretation Comments Platelet Count (test code = 777-3) 191 140-360 [facility] CenterNeutrophils (%) (Auto)2019-02-15 05:29:00 * Test Item Value Reference Range Interpretation Comments Neutrophils (%) (Auto) (test code = 10592-9) 68.3 38.7-80.0 [facility] CenterLymphocytes (%) (Auto)2019-02-15 05:29:00 * Test Item Value Reference Range Interpretation Comments Lymphocytes (%) (Auto) (test code = 736-9) 20.3 18.0-39.1 [facility] CenterMonocytes (%) (Auto)2019-02-15 05:29:00* Test Item Value Reference Range Interpretation Comments Monocytes (%) (Auto) (test code = 5905-5) 10.0 4.4-11.3 [facility] CenterEosinophils (%) (Auto)2019-02-15 05:29:00 * Test Item Value Reference Range Interpretation Comments Eosinophils (%) (Auto) (test code = 713-8) 0.2 0.0-6.0 [facility] CenterBasophils (%) (Auto)2019-02-15 05:29:00* Test Item Value Reference Range Interpretation Comments Basophils (%) (Auto) (test code = 706-2) 0.3 0.0-1.0 [facility] CenterIM GRANULOCYTES %2019-02-15 05:29:00* Test Item Value Reference Range Interpretation Comments IM GRANULOCYTES % (test code = IM GRANULOCYTES %) 0.9 0.0- 1.0 [facility] CenterNeutrophils # (Auto)2019-02-15 05:29:00* Test Item Value Reference Range Interpretation Comments Neutrophils # (Auto) (test code = 751-8) 7.4 2.1-6.9 H [facility] CenterLymphocytes # (Auto)2019-02-15 05:29:00* Test Item Value Reference Range Interpretation Comments Lymphocytes # (Auto) (test code = 74619-6) 2.2 1.0-3.2 [facility] CenterMonocytes # (Auto)2019-02-15 05:29:00* Test Item Value Reference Range Interpretation Comments Monocytes # (Auto) (test code = 742-7) 1.1 0.2-0.8 H [facility] CenterEosinophils # (Auto)2019-02-15 05:29:00* Test Item Value Reference Range Interpretation Comments Eosinophils # (Auto) (test code = 711-2) 0.0 0.0-0.4 [facility] CenterBasophils # (Auto)2019-02-15 05:29:00* Test Item Value Reference Range Interpretation Comments Basophils # (Auto) (test code = 704-7) 0.0 0.0-0.1 [facility] CenterAbsolute Immature Granulocyte (auto 2019-02-15 05:29:00* Test Item Value Reference Range Interpretation Comments Absolute Immature Granulocyte (auto (amanda t code = Absolute Immature Granulocyte (auto) 0.10 0-0.1 [facility] CenterMagnesium Erbem0748-80-01 08:18:00* Test Item Value Reference Range Interpretation Comments Magnesium Level (test code = 81569-6) 1.8 1.3-2.1 [facility] CenterTotal Xonboilha4491-65-57 08:18:00* Test Item Value Reference Range Interpretation Comments Total Bilirubin (test code = 1975-2) 1.2 0.2-1.2 [facility] CenterAspartate Amino Transf (AST/SGOT) 2019-02-14 08:18:00* Test Item Value Reference Range Interpretation Comments Aspartate Amino Transf (AST/SGOT) (test code = Aspartate Amino Transf (AST/SGOT)) 46 5-34 H [facility] CenterAlanine Aminotransferase (ALT/SGPT) 2019-02-14 08:18:00* Test Item Value Reference Range Interpretation Comments Alanine Aminotransferase (ALT/SGPT) (test code = 1742-6) 23 0-55 [facility] CenterTotal Gltkmiv1546-70-68 08:18:00* Test Item Value Reference Range Interpretation Comments Total Protein (test code = 2885-2) 8.2 6.5-8.1 H [facility] CenterAlbumin2019-07-14 08:18:00* Test Item Value Reference Range Interpretation Comments Albumin (test code = 1751-7) 4.8 3.5-5.0 [facility] CenterGlobulin2019-07-14 08:18:00* Test Item Value Reference Range Interpretation Comments Globulin (test code = 15494-1) 3.4 2.3-3.5 [facility] CenterAlbumin/Globulin Dejzb5108-81-86 08:18:00 * Test Item Value Reference Range Interpretation Comments Albumin/Globulin Ratio (test code = 1759-0) 1.4 0.8-2.0 [facility] CenterAlkaline Lwwifuzhbks7899-51-17 08:18:00* Test Item Value Reference Range Interpretation Comments Alkaline Phosphatase (test code = 6768-6) 91 40-150 [facility] CenterLipase2019-07-13 06:31:00* Test Item Value Reference Range Interpretation Comments Lipase (test code = 3040-3) 26 8-78 [facility] CenterThyroid Stimulating Hormone (TSH) 2019-02-12 11:45:00* Test Item Value Reference Range Interpretation Comments Thyroid Stimulating Hormone (TSH) (test code = 20061-6) 1.031 0.350-4.940 [facility] CenterThyroid Stimulating Hormone (TSH) 2019-02-12 11:45:00* Test Item Value Reference Range Interpretation Comments Thyroid Stimulating Hormone (TSH) (test code = 56578-9) 1.031 0.350-4.940 [facility] CenterUrine NGN2690-57-21 11:31:00* Test Item Value Reference Range Interpretation Comments Urine WBC (test code = 5821-4) NONE 0-5 [facility] CenterCT ABDOMEN/PELVIS R2104-99-42 11:08:00 [facility] [address] [address] Patient Name: KATELYNN JAIMES MR #: [id number] : 1950 Age/Sex: 68/F Req #: [id number] Adm Physician: MARTIN STINSON MD Ordered by: ARMANDO MORALES, CLEMENCIA MORALES Report #: [id number] Location: [facility] Room/Bed: [place] [address] Procedure: 0712-[address]/CT ABDOMEN/PELVIS W Exam Date: 02/12/19 Exam Ti me: 1047 REPORT STATUS: Signed E XAM: CT Abdomen and Pelvis with contrast INDICATION: Left lower quadrant abdominal pain, query diverticulitis. COMPARISON: None. TECHNIQUE: Abd omen and pelvis were scanned utilizing a multidetector helical scanner from th e lung base to the pubic symphysis after administration of IV contrast. Michelle l and sagittal reformations were obtained. Routine protocol was performed. Sca n was performed when during portal venous phase. IV CONTRAST: 100 mL of Isovue 370 ORAL CONTRAST: Gastrografin COMPLICATIONS: None RADIATION DOSE: Total DLP: 638 mGy*cm Dose modulation, it erative reconstruction, and/or weight based adjustment of the mA/kV was utiliz ed to reduce the radiation dose to as low as reasonably achievable. FIND INGS: LINES and TUBES: None. LOWER THORAX: Coronary atherosclerosis. HEPATOBILIARY: Diffuse hepatic steatosis. No evidence of focal lesion. There is mildly dilated common bile duct, likely post cholecystectomy reservoir effect. GALLBLADDER: Status post cholecystectomy. SPLEEN: No splenomegaly. PANCREAS: No focal masses or ductal dilatation. ADRENALS: No ad renal nodules KIDNEYS/URETERS: Kidneys enhance symmetrically. No evidence of hydronephrosis or stone. Indeterminant 1.7 cm left mid pole hypodense soft tissue lesion (series 2, image 28; 47 Hounsfield units). GI TRACT: The as cending, transverse, and descending colon appear decompressed and mildly thick -walled. Sigmoid diverticulosis without CT evidence of epididymitis. Appendix is not clearly identified. There is however no fat stranding or adenopathy in the right lower quadrant to suggest appendicitis. Small hiatal hernia. PE LVIC ORGANS/BLADDER: Unremarkable. LYMPH NODES: No lymphadenopathy. VE SSELS: Suboptimally evaluated in the lack of arterial phase images. There is i nfrarenal abdominal aortic aneurysm, measuring up to 4.4 cm. There is smooth m ural thrombus within the aneurysm sac. There is an originates 1.7 cm distal to the right renal artery origin and extends to the aortic bifurcation. There is moderate to extensive atherosclerotic vascular calcifications. There is an SMA stent, which appears patent. There is a left common/proximal external iliac artery stent and a right external iliac artery stent which are patent. PER ITONEUM / RETROPERITONEUM: No free air or fluid. BONES AND SOFT TISSUES: No acute osseous abnormality. No suspicious lytic or blastic lesions. CONCL USION: Sigmoid diverticulosis without CT evidence of diverticulitis. Mild ly thick-walled colon, which may be secondary to decompression or colitis in t he appropriate clinical setting. Indeterminate 1.7 cm left mid pole hypoden se soft tissue lesion. Recommend renal protocol CT or MRI for further evaluati on. Infrarenal abdominal aortic aneurysm, measuring up to 4.4 cm. Recommend comparison to prior studies if available. Suggest follow-up CTA in 6 months. Diffuse hepatic steatosis. Signed by: Dr. Elías Olivia MD on 02/12/2019 11:21 AM Dictated By: ELÍAS OLIVIA MD 112 Transcribed By: JAY JAY on 02/12/19 1121 COPY TO: CLEMENCIA ROBERTS B-Type Natriuretic Ucfyqsu9816-72-80 09:58:00* Test Item Value Reference Range Interpretation Comments B-Type Natriuretic Peptide (test code = 75912-9) 209.0 0-100 H [facility] CenterCreatine Kinase [id number] 09:58:00* Test Item Value Reference Range Interpretation Comments Creatine Kinase MB (test code = 28172-1) < 1.00 0-4.3 [facility] CenterTroponin U7020-88-31 09:58:00* Test Item Value Reference Range Interpretation Comments Troponin I (test code = 41776-6) < 0.05 0.0-0.40 [facility] CenterB-Type Natriuretic Kiyhliv1324-78-15 09:58:00* Test Item Value Reference Range Interpretation Comments B-Type Natriuretic Peptide (test code = 55524-4) 209.0 0-100 H [facility] CenterCreatine Wrkzgv7149-86-92 09:32:00* Test Item Value Reference Range Interpretation Comments Creatine Kinase (test code = 2157-6) 74 29-168 [facility] CenterCHEST SINGLE (PORTABLE)2019-02-12 09:30:00 [address] [address] Patient Name: KATELYNN JAIMES MR #: [id number] : 1950 Age/Sex: 68/F Req #: [id number] Adm Physician: MARTIN STINSON MD Ordered by: ARMANDO MORALES, CLEMENCIA MORALES Report #: [id number] Location: [facility] Room/Bed: [place] [address] Procedure: 002 1 DX/CHEST SINGLE (PORTABLE) Exam Date: Exam Time: REPORT STATUS: Signed EXAMINATI ON: CHEST SINGLE (PORTABLE) INDICATION: Nausea, shortness of breath. COMPARISON: None FINDINGS: TUBES and LINES: None. LUNGS: Lungs are well inflated. There is no evidence of pneumonia or pulmonary micheline ma. Biapical pleural parenchymal opacities likely reflect sequela of prior gra nulomatous disease. PLEURA: No pleural effusion or pneumothorax. HE ART AND MEDIASTINUM: The cardiomediastinal silhouette is unremarkable. There are atherosclerotic calcifications within the aorta. BONES AND SOFT TISSUES : No acute osseous lesion. Soft tissues are unremarkable. UPPER ABDOMEN : No free air under the diaphragm. IMPRESSION: No acute radiographic abnormality. Signed by: Dr. Elías Olivia MD on 02/12/2019 9:34 AM Di ctated By: ELÍAS OLIVIA MD Transcribed By: JAY JAY on 02/12/19933 COPY TO: CLEMENCIA ROBERTS Urine [id number] 09:18:00* Test Item Value Reference Range Interpretation Comments Urine RBC (test code = 51508-2) NONE 0-5 [facility] CenterUrine Mfaqgtia8473-66-74 09:18:00* Test Item Value Reference Range Interpretation Comments Urine Bacteria (test code = 30850-4) NONE NONE [facility] CenterUrine Epithelial Jxudz9104-35-35 09:18:00 * Test Item Value Reference Range Interpretation Comments Urine Epithelial Cells (test code = 77197-3) FEW NONE [facility] CenterUrine Transitional Epithelial Cells 2019-02-12 09:18:00* Test Item Value Reference Range Interpretation Comments Urine Transitional Epithelial Cells (test code = 8249-5) MODERATE NONE H [facility] CenterUrine Amorphous Jfifahfs6184-26-84 09:18:00* Test Item Value Reference Range Interpretation Comments Urine Amorphous Sediment (test code = 8246-1) FEW FEW [facility] CenterUrine Transitional Epithelial Cells 2019-02-12 09:18:00* Test Item Value Reference Range Interpretation Comments Urine Transitional Epithelial Cells (test code = 8249-5) MODERATE NONE H [facility] CenterUrine Amorphous Sojhxsry9994-53-58 09:18:00* Test Item Value Reference Range Interpretation Comments Urine Amorphous Sediment (test code = 8246-1) FEW FEW [facility] CenterUrine Whewj1836-59-15 09:00:00* Test Item Value Reference Range Interpretation Comments Urine Color (test code = 5778-6) YELLOW YELLOW [facility] CenterUrine Zfetwri4630-90-77 09:00:00* Test Item Value Reference Range Interpretation Comments Urine Clarity (test code = 02866-0) CLEAR CLEAR [facility] Specific Ppaudor2227-64-35 09:00:00 * Test Item Value Reference Range Interpretation Comments Urine Specific [place] (test code = 5811-5) 1.015 1.010-1.02 5 [facility] CenterUrine cU0527-00-09 09:00:00* Test Item Value Reference Range Interpretation Comments Urine pH (test code = 58362-1) 7.5 5-7 [facility] Leukocyte Bffwuruu6664-97-09 09:00:00* Test Item Value Reference Range Interpretation Comments Urine Leukocyte Esterase (test code = 85563-9) NEGATIVE NEGATIV E [facility] CenterUrine Ktccvuo5608-81-66 09:00:00* Test Item Value Reference Range Interpretation Comments Urine Nitrite (test code = 24264-6) NEGATIVE NEGATIVE [facility] CenterUrine Uvpwgom9501-87-94 09:00:00* Test Item Value Reference Range Interpretation Comments Urine Protein (test code = 38105-7) NEGATIVE NEGATIVE [facility] Glucose (UA)2019-02-12 09:00:00* Test Item Value Reference Range Interpretation Comments Urine Glucose (UA) (test code = 41074-1) NEGATIVE NEGATIVE [facility] CenterUrine Vkfyxvi9278-60-47 09:00:00* Test Item Value Reference Range Interpretation Comments Urine Ketones (test code = 70849-6) NEGATIVE NEGATIVE [facility] CenterUrine Ipdgmyrfpyib1545-31-37 09:00:00* Test Item Value Reference Range Interpretation Comments Urine Urobilinogen (test code = 61218-4) 0.2 0.2-1 [facility] CenterUrine Zbrenvnhr3950-24-49 09:00:00* Test Item Value Reference Range Interpretation Comments Urine Bilirubin (test code = 1977-8) NEGATIVE NEGATIVE [facility] CenterUrine Ltifm1298-57-84 09:00:00* Test Item Value Reference Range Interpretation Comments Urine Blood (test code = 98348-9) NEGATIVE NEGATIVE [facility] CenterProthrombin Zaqv3520-45-08 08:57:00* Test Item Value Reference Range Interpretation Comments Prothrombin Time (test code = 5902-2) 13.1 11.9-14.5 [facility] CenterProthromb Time International Ratio 2019-02-12 08:57:00* Test Item Value Reference Range Interpretation Comments Prothromb Time International Ratio (test code = 6301-6) 0.94 Oral Anticoagulant Therapy INR Values:1. Low Intensity Therapy 1.5 - 2.02 . Moderate Intensity Therapy 2.0 - 3.03. High Intensity Therapy(1) 2.5 - 3. 54. High Intensity Therapy(2) 3.0 - 4.05. Panic Value INR > 5.0 [facility] CenterActivated Partial Thromboplast Time 2019-02-12 08:57:00* Test Item Value Reference Range Interpretation Comments Activated Partial Thromboplast Time (test code = 32061-8) 24.6 23.8-35.5 [facility] CenterProthrombin Dzwt3102-16-42 08:57:00* Test Item Value Reference Range Interpretation Comments Prothrombin Time (test code = 5902-2) 13.1 11.9-14.5 [facility] CenterProthromb Time International Ratio 2019-02-12 08:57:00* Test Item Value Reference Range Interpretation Comments Prothromb Time International Ratio (test code = 6301-6) 0.94 Oral Anticoagulant Therapy INR Values:1. Low Intensity Therapy 1.5 - 2.02 . Moderate Intensity Therapy 2.0 - 3.03. High Intensity Therapy(1) 2.5 - 3. 54. High Intensity Therapy(2) 3.0 - 4.05. Panic Value INR > 5.0 [facility] CenterActivated Partial Thromboplast Time 2019-02-12 08:57:00* Test Item Value Reference Range Interpretation Comments Activated Partial Thromboplast Time (test code = 45877-0) 24.6 23.8-35.5 [facility] CenterCT ABDOMEN/PELVIS D3288-28-12 10:17:00 [facility] [address] [address] Patient Name: KATELYNN CARNEY MR #: [id number] : 1950 Age/Sex: 68/F Req #: [id number] Adm Physician: Ordered by: VIVI BUSCH MD Report #: [id number] Location: CT Room/Bed: Procedure: 0607-[address]/CT ABDOMEN/PELVIS W Exam Date: 01/08/19 Exam Time: 0820 REPORT STATUS: Signed EXAM: CT ABDOMEN AND PELVIS with IV CONTRAST DATE: 01/08/2019 Time stamp on Exa m: 8:45 AM INDICATION: VARELA COMPARISON: 10/26/2018 TECHNIQUE: The abdomen and pelvis were scanned using a multidetector helical scanner. Coronal and sa gittal reformations were obtained. Technique modification was performed to merced ntain the lowest dose possible to the patient. IV Contrast: 100 cc of Isovu e-370 Oral Contrast: Water Radiation Dose: Total DLP 497.92 mGy*cm Estimat ed effective dose: DLP x 0.015 x size factor FINDINGS: LOWER THORAX: No c onsolidations LIVER: No masses with diffuse hepatic steatosis. Enlargement of the liver measuring 18.5 cm. BILIARY: The gallbladder is absent. No duct al dilatation. SPLEEN: The spleen is enlarged measuring 14.5 cm. PANCREAS : No masses ADRENALS: No nodules KIDNEYS: Symmetric perfusion. No enhanci ng masses. No hydronephrosis. There is a 1.9 cm left renal cyst. GI TRACT : No distention, wall thickening or evidence of obstruction. VESSELS: T here is a 4.3 cm infrarenal abdominal aortic aneurysm that is clot lined. Aneu rysm extends to the aortic bifurcation. There are bilateral iliac artery stent s (common iliac to external iliac on the left and external iliac on the right) and an SMA stent. Main portal vein measures 1.8 cm. PERITONEUM/RETROPERITONEU M: No free air or fluid LYMPH NODES: No lymphadenopathy REPRODUCTIVE ORGA NS: Unremarkable BLADDER: Unremarkable SOFT TISSUES: Unremarkable BONES : No suspicious bone lesions. IMPRESSION: 1. Hepatosplenomegaly with e vidence of portal vein enlargement. 2. Diffuse hepatic steatosis without evide nce of a mass. 3. Infrarenal abdominal aortic aneurysm. Signed by: Dr. Hiram Medrano DO on 01/08/2019 10:35 AM Dictated By: VINCENT Mcnair ronically Signed By: VINCENT MEDRANO DO on 01/08/19 1035 Transcribed By: JAY JAY on 01/08/19 1035 COPY TO: VIVI BUSCH MD Sodium Level 2018-10-28 07:29:00* Test Item Value Reference Range Interpretation Comments Sodium Level (test code = 2951-2) 133 136-145 L [facility] CenterPotassium Jkiok6139-54-52 07:29:00* Test Item Value Reference Range Interpretation Comments Potassium Level (test code = 2823-3) 3.4 3.5-5.1 L [facility] CenterChloride Cytus1616-63-00 07:29:00* Test Item Value Reference Range Interpretation Comments Chloride Level (test code = 2075-0) 103 98-107 [facility] CenterCarbon Dioxide Snnmv1819-59-89 07:29:00* Test Item Value Reference Range Interpretation Comments Carbon Dioxide Level (test code = 2028-9) 23 22-29 [facility] CenterAnion Kcp8698-64-80 07:29:00* Test Item Value Reference Range Interpretation Comments Anion Gap (test code = 66243-4) 10.4 8-16 [facility] CenterBlood Urea Ojztbnfr0289-64-82 07:29:00* Test Item Value Reference Range Interpretation Comments Blood Urea Nitrogen (test code = 3094-0) 17 7-26 [facility] CenterCreatinine2019-03-27 07:29:00* Test Item Value Reference Range Interpretation Comments Creatinine (test code = 2160-0) 0.84 0.57-1.11 [facility] CenterBUN/Creatinine Zubbd7661-57-60 07:29:00* Test Item Value Reference Range Interpretation Comments BUN/Creatinine Ratio (test code = 3097-3) 20 - [facility] CenterEstimat Glomerular Filtration Rate 2018-10-28 07:29:00* Test Item Value Reference Range Interpretation Comments Estimat Glomerular Filtration Rate (test code = 654983498) > 60 >60 Ranges were taken from the National Kidney Disease Education Program and the [facility] access [facility] Kidney Foundation literature.Reference ranges:60 or greater: Mluxbo24-23 ( for 3 consecutive months): Chronic kidney disease 15 or less: Kidney failureMethodist [facility]ton Medical CenterGlucose Iikal1489-27-75 07:29:00* Test Item Value Reference Range Interpretation Comments Glucose Level (test code = XBN3912) 77 74-118 [facility] CenterCalcium Rewhg7503-27-80 07:29:00* Test Item Value Reference Range Interpretation Comments Calcium Level (test code = 02017-3) 8.1 8.4-10.2 L [facility] CenterCreatine Goermx7081-29-07 06:29:00* Test Item Value Reference Range Interpretation Comments Creatine Kinase (test code = 2157-6) 84 29-168 [facility] CenterCreatine Kinase NQ0189-54-14 06:29:00* Test Item Value Reference Range Interpretation Comments Creatine Kinase MB (test code = 54414-9) 0.60 0-5.0 [facility] CenterTroponin A7851-87-42 06:29:00* Test Item Value Reference Range Interpretation Comments Troponin I (test code = EYS0906) 0.003 0-0.300 [facility] CenterCHEST XRAY LINE SYACPRMMG6492-78-87 15:18:00 [facility] [address] [place] [address] Patient Name: KATELYNN CARNEY MR #: [id number] : 1950 Age/Sex: 67/F Req #: [id number] Adm Physician: MARTIN STINSON MD Ordered by: MARTIN STINSON MD Report #: [id number] Location: MED/SURG Room/Bed: [facility] Procedure: [id number] 5 DX/CHEST XRAY LINE PLACEMENT Exam Date: 10/27/18 E xam Time: 1320 REPORT STATUS: Tarah d EXAM: AP Portable chest DATE: 10/27/2018 Time stamp on exam: 1:38 PM IN DICATION: PICC placement COMPARISON: None FINDINGS: LINES/TUBES: Left-s ided PICC terminates overlying the SVC. LUNGS: No consolidations or edema. PLEURA: No effusions or pneumothorax. HEART AND MEDIASTINUM: Normal s ize and contour. BONES AND SOFT TISSUES: No acute findings. IMPRESSION : No acute thoracic abnormality. Signed by: Dr. Vincent Medrano DO o n 10/27/2018 3:20 PM Dictated By: VINCENT MEDRANO DO Transcribed By: JAY JAY on 10/27/18 1624 COPY TO: MARTIN STINSON MD IR MHLJKZJ7360-37-58 15:18:00 [place] [address] Patient Name: KATELYNN CARNEY MR #: [id number] : 1950 Age/Sex: 67/F Req #: [id number] Adm Physician: MARTIN STINSON MD Ordered by: MARTIN STINSON MD Report #: [id number] Location: MED/SURG Room/Bed: 1091 Procedure: [id number] DX/IR CONSULT Exam Date: Exam Time: REPORT STATUS: Signed EXAM: AP Portable [facility] DATE: 10/27/2018 Time stamp on exam: 1:38 PM INDICATION: PICC placement COMPARISON: None FINDINGS: LINES/TUBES: Left-sided PICC terminates overly ing the SVC. LUNGS: No consolidations or edema. PLEURA: No effusions or pneumothorax. HEART AND MEDIASTINUM: Normal size and contour. BONES AND SOFT TISSUES: No acute findings. IMPRESSION: No acute thoracic abnor mality. Signed by: Dr. Vincent Medrano DO on 10/27/2018 3:20 PM Dictated By: VINCENT MEDRANO DO 1624 COPY TO: KEMAR STINSON AM, MD Total Yfbgnhcbx1750-42-10 06:59:00* Test Item Value Reference Range Interpretation Comments Total Bilirubin (test code = 1975-2) 0.8 0.2-1.2 [facility] CenterAspartate Amino Transf (AST/SGOT) 2018-10-27 06:59:00* Test Item Value Reference Range Interpretation Comments Aspartate Amino Transf (AST/SGOT) (test code = Aspartate Amino Transf (AST/SGOT)) 31 5-34 [facility] CenterAlanine Aminotransferase (ALT/SGPT) 2018-10-27 06:59:00* Test Item Value Reference Range Interpretation Comments Alanine Aminotransferase (ALT/SGPT) (test code = 1742-6) 15 0-55 [facility] CenterTotal Uhnscox8792-46-45 06:59:00* Test Item Value Reference Range Interpretation Comments Total Protein (test code = 2885-2) 7.1 6.5-8.1 [facility] CenterAlbumin2019-03-26 06:59:00* Test Item Value Reference Range Interpretation Comments Albumin (test code = 1751-7) 3.9 3.5-5.0 [facility] CenterGlobulin2019-03-26 06:59:00* Test Item Value Reference Range Interpretation Comments Globulin (test code = 45506-8) 3.2 2.3-3.5 [facility] CenterAlbumin/Globulin Twisj9685-56-45 06:59:00 * Test Item Value Reference Range Interpretation Comments Albumin/Globulin Ratio (test code = 1759-0) 1.2 0.8-2.0 [facility] CenterAlkaline Jhyqgwlrduz2198-77-69 06:59:00* Test Item Value Reference Range Interpretation Comments Alkaline Phosphatase (test code = 6768-6) 87 40-150 [facility] CenterWhite Blood Wybsh1426-15-39 06:45:00* Test Item Value Reference Range Interpretation Comments White Blood Count (test code = 6690-2) 8.09 4.8-10.8 [facility] CenterRed Blood Bqyop3939-67-93 06:45:00* Test Item Value Reference Range Interpretation Comments Red Blood Count (test code = 789-8) 4.52 3.6-5.1 [facility] CenterHemoglobin2019-03-26 06:45:00* Test Item Value Reference Range Interpretation Comments Hemoglobin (test code = 75336-4) 13.2 12.0-16.0 [facility] CenterHematocrit2019-03-26 06:45:00* Test Item Value Reference Range Interpretation Comments Hematocrit (test code = 4544-3) 40.6 34.2-44.1 [facility] CenterMean Corpuscular Gjmcsz4008-65-79 06:45:00* Test Item Value Reference Range Interpretation Comments Mean Corpuscular Volume (test code = 787-2) 89.8 81-99 [facility] CenterMean Corpuscular Hhllcxuwkv5177-55-84 06:45:00* Test Item Value Reference Range Interpretation Comments Mean Corpuscular Hemoglobin (test code = 785-6) 29.2 28-32 [facility] CenterMean Corpuscular Hemoglobin Concent 2018-10-27 06:45:00* Test Item Value Reference Range Interpretation Comments Mean Corpuscular Hemoglobin Concent (test code = 786-4) 32.5 31-35 [facility] CenterRed Cell Distribution Nzsak9182-52-85 06:45:00* Test Item Value Reference Range Interpretation Comments Red Cell Distribution Width (test code = 94400-7) 14.3 11.7 -14.4 [facility] CenterPlatelet Whzzr9108-06-15 06:45:00* Test Item Value Reference Range Interpretation Comments Platelet Count (test code = 777-3) 167 140-360 [facility] CenterNeutrophils (%) (Auto)2018-10-27 06:45:00 * Test Item Value Reference Range Interpretation Comments Neutrophils (%) (Auto) (test code = 02597-2) 64.8 38.7-80.0 [facility] CenterLymphocytes (%) (Auto)2018-10-27 06:45:00 * Test Item Value Reference Range Interpretation Comments Lymphocytes (%) (Auto) (test code = 736-9) 24.0 18.0-39.1 [facility] CenterMonocytes (%) (Auto)2018-10-27 06:45:00* Test Item Value Reference Range Interpretation Comments Monocytes (%) (Auto) (test code = 5905-5) 9.0 4.4-11.3 [facility] CenterEosinophils (%) (Auto)2018-10-27 06:45:00 * Test Item Value Reference Range Interpretation Comments Eosinophils (%) (Auto) (test code = 713-8) 0.4 0.0-6.0 [facility] CenterBasophils (%) (Auto)2018-10-27 06:45:00* Test Item Value Reference Range Interpretation Comments Basophils (%) (Auto) (test code = 706-2) 0.4 0.0-1.0 [facility] CenterIM GRANULOCYTES %2018-10-27 06:45:00* Test Item Value Reference Range Interpretation Comments IM GRANULOCYTES % (test code = IM GRANULOCYTES %) 1.4 0.0- 1.0 H [facility] CenterNeutrophils # (Auto)2018-10-27 06:45:00* Test Item Value Reference Range Interpretation Comments Neutrophils # (Auto) (test code = 751-8) 5.3 2.1-6.9 [facility] CenterLymphocytes # (Auto)2018-10-27 06:45:00* Test Item Value Reference Range Interpretation Comments Lymphocytes # (Auto) (test code = 54458-6) 1.9 1.0-3.2 [facility] CenterMonocytes # (Auto)2018-10-27 06:45:00* Test Item Value Reference Range Interpretation Comments Monocytes # (Auto) (test code = 742-7) 0.7 0.2-0.8 [facility] CenterEosinophils # (Auto)2018-10-27 06:45:00* Test Item Value Reference Range Interpretation Comments Eosinophils # (Auto) (test code = 711-2) 0.0 0.0-0.4 [facility] CenterBasophils # (Auto)2018-10-27 06:45:00* Test Item Value Reference Range Interpretation Comments Basophils # (Auto) (test code = 704-7) 0.0 0.0-0.1 [facility] CenterAbsolute Immature Granulocyte (auto 2018-10-27 06:45:00* Test Item Value Reference Range Interpretation Comments Absolute Immature Granulocyte (auto (amanda t code = Absolute Immature Granulocyte (auto) 0.11 0-0.1 H [facility] CenterCT ABDOMEN/PELVIS [id number] 05:07:00 [place] [address] Patient Name: KATELYNN CARNEY MR #: [id number] : 1950 Age/Sex: 67/F Req #: [id number] Adm Physician: Ordered by: YECENIA HUNTER MD Report #: [id number] Location: ER Room/Bed: Procedure: [id number] C T/CT ABDOMEN/PELVIS W Exam Date: Exam Time: REPORT STATUS: Signed EXAMINATION: CT of the abdomen and pelvis with contrast. TECHNIQUE: Spiral CT images of the abdomen and pelvis were performed from the lung bases to the lesser trocha nters after the intravenous administration of 100 cc of Omnipaque 300. Patient was unable to tolerate oral contrast due to nausea and vomiting. Coronal and sagittal reformatted images were obtained. COMPARISON: CT abdomen and pelvi s 06/14/2013, MRI abdomen 07/06/2018 CLINICAL HISTORY:Nausea, vomiting and d iarrhea for 4 days, diffuse abdominal pain DISCUSSION: ABDOMEN/ PELVIS: LOWER THORAX:Unremarkable. HEPATOBILIARY: Nodular hepatic cont our. Diffusely decreased attenuation of the hepatic parenchyma compared to the spleen, consistent with steatosis. No focal lesions. No intra or extrahepatic biliary ductal dilation. GALLBLADDER: Cholecystectomy clips. SPL EEN: Spleen is enlarged, measuring 14.7 cm in craniocaudal diameter. PANCRE : No focal masses or ductal dilatation. ADRENALS: No adrenal nodules. KIDNEYS/URETERS: No hydronephrosis, stones, or solid mass lesions. Stable 1.9 cm personally exophytic cystic lesion in the lateral left interpolar region, consistent with a hemorrhagic/proteinaceous cyst on prior MRI. PELVIC ORG ANS/BLADDER: Bladder is unremarkable. Uterus is absent. No adnexal masses. PERITONEUM/RETROPERITONEUM: No free air or fluid. LYMPH NODES: No intra-a bdominal, retroperitoneal, pelvic or inguinal lymphadenopathy. VESSELS: T he celiac trunk,superior and inferior mesenteric and bilateral renal arteries are patent The portal, superior mesenteric and splenic veins are patent. Por darrius vein is dilated, measuring 1.7 cm at the derick hepatis. Metallic stent aga in visualized in the proximal SMA. Atherosclerotic calcification of the abdomi nal aorta and iliac vessels. Stable infrarenal abdominal aortic aneurysm which measures approximately 4.1 x 4.3 cm in diameter and 7.8 cm in length extending to the bifurcation (series 2, image 34), and contains prominent soft plaque. A periaortic hematoma or contrast extravasation. GI TRACT: No bowel dila tion or evidence of obstruction. No pericolonic inflammatory changes. BON ES AND SOFT TISSUE: No aggressive lytic lesions. No soft tissue abnormalities . IMPRESSION: 1. No acute abdominopelvic abnormalities. 2. Cirrhotic and steatotic liver with evidence of portal hypertension manifested by dilated portal vein and splenomegaly. No focal lesions. 3. Stable 4.3 cm infrarenal abdominal aortic aneurysm. Signed by: Nj Islas on 10/26/2018 5:18 AM Dictated By: NIKOLAS SHERIFF MD Electronically Si gned By: NIKOLAS SHERIFF MD on 10/26/18517 Transcribed By: JAY JAY on 10/26/18517 COPY TO: YECENIA HUNTER MD Urine [id number] 04:46:00* Test Item Value Reference Range Interpretation Comments Urine WBC (test code = 5821-4) 6-10 0-5 H [facility] CenterUrine AKH4575-97-05 04:46:00* Test Item Value Reference Range Interpretation Comments Urine RBC (test code = 94032-2) 6-10 0-5 H [facility] CenterUrine Cxxexaur7325-35-46 04:46:00* Test Item Value Reference Range Interpretation Comments Urine Bacteria (test code = 06358-8) FEW NONE [facility] CenterUrine Epithelial Kfdxp0979-77-45 04:46:00 * Test Item Value Reference Range Interpretation Comments Urine Epithelial Cells (test code = 06426-0) FEW NONE [facility] CenterUrine Hyaline Wvgqb6980-61-84 04:46:00* Test Item Value Reference Range Interpretation Comments Urine Hyaline Casts (test code = 84446-2) 2-5 0-1 H [facility] CenterUrine Cscgh7803-05-93 04:46:00* Test Item Value Reference Range Interpretation Comments Urine Mucus (test code = 8247-9) MODERATE RARE H [facility] Pzizr4416-11-95 04:46:00* Test Item Value Reference Range Interpretation Comments Urine Yeast (test code = 13271-9) FEW NONE H [facility] Jsmqa6360-61-01 04:40:00* Test Item Value Reference Range Interpretation Comments Urine Color (test code = 5778-6) YELLOW YELLOW [facility] CenterUrine Dlnyqgj9289-99-11 04:40:00* Test Item Value Reference Range Interpretation Comments Urine Clarity (test code = 87157-0) CLEAR CLEAR [facility] CenterUrine Specific Qnchakx6222-97-86 04:40:00 * Test Item Value Reference Range Interpretation Comments Urine Specific [place] (test code = 5811-5) 1.015 1.010-1.02 5 [facility] oJ4715-92-99 04:40:00* Test Item Value Reference Range Interpretation Comments Urine pH (test code = 21801-0) 7 5-7 [facility] Leukocyte Fvmrbvts1402-29-67 04:40:00* Test Item Value Reference Range Interpretation Comments Urine Leukocyte Esterase (test code = 5799-2) NEGATIVE NEGATIVE [facility] Hwtahsk1715-69-54 04:40:00* Test Item Value Reference Range Interpretation Comments Urine Nitrite (test code = 99398-2) NEGATIVE NEGATIVE [facility] CenterUrine Xvfggwa7921-79-95 04:40:00* Test Item Value Reference Range Interpretation Comments Urine Protein (test code = 5804-0) NEGATIVE NEGATIVE [facility] CenterUrine Glucose (UA)2018-10-26 04:40:00* Test Item Value Reference Range Interpretation Comments Urine Glucose (UA) (test code = 2349-9) 1+ NEGATIVE H [facility] Payldee9905-85-38 04:40:00* Test Item Value Reference Range Interpretation Comments Urine Ketones (test code = 25823-3) NEGATIVE NEGATIVE [facility] Jszgkercbhhp3140-08-46 04:40:00* Test Item Value Reference Range Interpretation Comments Urine Urobilinogen (test code = 38940-7) 0.2 0.2-1 [facility] CenterUrine Ddzknsmfy5348-50-73 04:40:00* Test Item Value Reference Range Interpretation Comments Urine Bilirubin (test code = 1978-6) NEGATIVE NEGATIVE [facility] CenterUrine Sybdq6489-73-01 04:40:00* Test Item Value Reference Range Interpretation Comments Urine Blood (test code = 49581-2) TRACE NEGATIVE H [facility] CenterMagnesium Axtxf9200-20-82 03:52:00* Test Item Value Reference Range Interpretation Comments Magnesium Level (test code = 75423-8) 2.1 1.3-2.1 [facility] CenterAmylase Ihviz8172-05-90 03:52:00* Test Item Value Reference Range Interpretation Comments Amylase Level (test code = 1798-8) 56 25-125 [facility] CenterLipase2019-03-25 03:52:00* Test Item Value Reference Range Interpretation Comments Lipase (test code = 3040-3) 11 8-78 [facility] CenterCHEST SINGLE (PORTABLE)2018-10-26 03:49:00 [facility] [address] [place] [address] Patient Name: KATELYNN CARNEY MR #: [id number] : 1950 Age/Sex: 67/F Req #: [id number] Adm Physician: Ordered by: YECENIA HUNTER MD Report #: [id number] Location: ER Room/Bed: Procedure: [id number] D X/CHEST SINGLE (PORTABLE) Exam Date: 10/26/18 Exam T jude: 0322 REPORT STATUS: Signed Examination: Single AP view of the chest. COMPARISON: Portable chest 018 INDICATION: Nausea vomiting and abdominal pain IMPRESSION: 1. Lines and Tubes: None 2. Lungs are grossly clear. No consolidation or effusion. 3. Cardiomediastinal silhouette is normal. Pulmonary vasculature is normal. Atherosclerotic calcification of the aortic arch. 4. No acute b jerry abnormalities. Signed by: Dr. Nikolas Sheriff M.D. on 10/26/2018 3:50 AM Dictated By: NIKOLAS SHERIFF MD 9 Transcribed By: JAY JAY on 10/26/18349 COPY TO: YECENIA HUNTER MD Prothrombin Znny7833-26-45 03:48:00* Test Item Value Reference Range Interpretation Comments Prothrombin Time (test code = 5902-2) 11.7 11.9-14.5 L [facility] CenterProthromb Time International Ratio 2018-10-26 03:48:00* Test Item Value Reference Range Interpretation Comments Prothromb Time International Ratio (test code = 6301-6) 0.81 Oral Anticoagulant Therapy INR Values:1. Low Intensity Therapy 1.5 - 2.02 . Moderate Intensity Therapy 2.0 - 3.03. High Intensity Therapy(1) 2.5 - 3. 54. High Intensity Therapy(2) 3.0 - 4.05. Panic Value INR > 5.0 [facility] CenterActivated Partial Thromboplast Time 2018-10-26 03:48:00* Test Item Value Reference Range Interpretation Comments Activated Partial Thromboplast Time (test code = 33335-7) 19.6 23.8-35.5 L [facility] CenterMRI ABDOMEN [id number] 07:57:00 [facility] [address] [place] [address] Patient Name: KATELYNN CARNEY MR #: [id number] : 1950 Age/Sex: 67/F Req #: [id number] Adm Physician: Ordered by: MARTIN STINSON MD Report #: [id number] Location: MRI Room/Bed: Procedure: [id number] MRI/MRI ABDOMEN WOW Exam Date: Exam Time: REPORT STATUS: Signed EXAM: MRI of the a bdomen with and without contrast. INDICATION: Cirrhosis. COMPARISON: CT abdomen/pelvis dated 06/14/2018. TECHNIQUE: Multiplanar and multisequen ce imaging was performed of the abdomen. T1 and T2-weighted images were obtain ed with and without contrast. T1-weighted in and vjz-jl-ejgyq , Dynamic, post gadolinium T1-weighted spoiled gradient echo scans. IV Contrast: 14 cc o f MultiHance gadolinium Oral Contrast: None. Medications: None DISCUSSI ON: LOWER THORAX: Unremarkable. HEPATOBILIARY: Loss of signal on out of phase images, representing hepatic steatosis. Mildly nodular hepatic conto ur. No focal hepatic lesions. No biliary ductal dilation. GALLBLADDER: S urgically absent. SPLEEN: Splenomegaly measuring approximately 15.7 cm. PANCREAS: No focal masses or ductal dilatation. ADRENALS: No adrenal n odules KIDNEYS/URETERS: Kidneys enhance symmetrically. No hydronephros is. 1.9 cm partially exophytic left midpole and 1.3 cm left inferior pole cyst s. There are additional subcentimeter left renal cysts. No renal mass. GI TRACT: Visualized bowel loops are unremarkable. No evidence of bowel obs truction. LYMPH NODES: No lymphadenopathy. VESSELS: Dilated portal vei n measuring 1.7 cm. Artifact from the stent in the proximal superior mesenteri c artery. Again seen infrarenal abdominal aortic aneurysm, measuring 4.3 cm. PERITONEUM / RETROPERITONEUM: No free air or fluid. BONES: Unremarkable. SOFT TISSUES: Unremarkable. IMPRESSION: Mild cirrhotic changes of the liver with signs of portal hypertension. No focal mass. He patic steatosis. Unchanged infrarenal abdominal aortic aneurysm, measuring 4.3 cm. Left renal cysts. Signed by: Dr. Jose L Domingo MD on 07/07/2018 8:12 AM Dictated By: JOSE L DOMINGO MD 1 Transcribed By: JAY JAY on 07/07/18811 COPY TO: MARTIN STINSON MD CT ABDOMEN/PELVIS [id number] 06:37:00 [place] [address] Patient Name: KATELYNN CARNEY MR #: [id number] : 1950 Age/Sex: 67/F Req #: [id number] Adm Physician: Ordered by: RENAE CHOUDHURY MD Report #: [id number] Location: ER Room/Bed: Procedure: [id number] CT/CT ABDOMEN/PELVIS W Exam Date: 06/14/18 Exa m Time: 0625 REPORT STATUS: Signed EXAM: CT Abdomen and Pelvis WITH contrast INDICATION: Weakness and confus ion, nausea, vomiting COMPARISON: Abdominal CT 11/26/2016 TECHNIQUE: Abdom en and pelvis were scanned utilizing a multidetector helical scanner from the lung base to the pubic symphysis after administration of IV contrast. Coronal and sagittal reformations were obtained. Routine protocol was performed. Scan was performed during portal venous phase. IV CONTRAST: 100 mL of Isov ue-370 ORAL CONTRAST: Water COMPLICATIONS: None RAD IATION DOSE: Total DLP: 440.4 mGy*cm Estimated effective dose: (DL P x 0.015 x size factor) mSv CTDIvol has been reviewed. It is below the l imits set by the Radiation Protocol Committee (RPC). Dose modulation, iterativ e reconstruction, and/or weight based adjustment of the mA/kV was utilized to reduce the radiation dose to as low as reasonably achievable. FINDINGS: LINES and TUBES: None. LOWER THORAX: Coronary artery calcifications. HEPATOBILIARY: Diffuse hypoattenuation of the liver reflecting steatosis. Mildly nodular liver contour. No focal hepatic lesions. No biliary ductal dila tion. GALLBLADDER: Absent. SPLEEN: Enlarged measuring 16.3 cm in winnie th. PANCREAS: No focal masses or ductal dilatation. ADRENALS: No ad renal nodules KIDNEYS/URETERS: Kidneys enhance symmetrically. No hydro nephrosis. Left superior pole 1.9 cm lesion measures greater than fluid densit y (31 HU), indeterminate. No stones. GI TRACT: Small hiatal hernia. No ab normal distention, wall thickening, or evidence of bowel obstruction. There a re diverticula within the colon without evidence of diverticulitis. Appendix is normal. PELVIC ORGANS/BLADDER: Hysterectomy. Bladder is unremarkable. LYMPH NODES: Prominent deirck hepatis nodes measuring up to 1.3 cm. VESSE LS: Main portal vein is enlarged measuring 1.7 cm in diameter. Infrarenal abdo niranjan aortic aneurysm approximately 7.8 cm in length extending to the aortic b ifurcation, measuring up to 4.3 cm in diameter. Stent in the proximal superior mesenteric artery, and bilateral external iliac arteries. Diffuse vascular ca lcifications. PERITONEUM / RETROPERITONEUM: No free air or fluid. BONE S: There are degenerative changes in the lumbar spine. SOFT TISSUES: Unrema rkable. IMPRESSION: 1. No acute abnormalities in the abdome n or pelvis. 2. Mildly nodular liver contour suggestive of cirrhosis. Splenom egaly and enlarged portal vein suggest portal hypertension. 3. Abdominal ao rtic aneurysm measuring up to 4.3 cm in diameter, previously 3.9 cm on 12/18/19 17. Signed by: DR. Shawn Easley MD on 06/14/2018 6:55 AM Dictated By: SHAWN EASLEY MD 065 5 Transcribed By: JAY JAY on 06/14/18654 COPY TO: RENAE CHOUDHURY MD CHEM [id number] 12:43:000.8[facility]annCHEM PWPVP4071-57-47 12:43:0077[facility]annSodium Qziqv1355-51-10 06:12:00* Test Item Value Reference Range Interpretation Comments Sodium Level (test code = 2951-2) 139 136-145 [facility] CenterPotassium Wpvzb8462-21-27 06:12:00* Test Item Value Reference Range Interpretation Comments Potassium Level (test code = 2823-3) 3.7 3.5-5.1 [facility] CenterChloride Qyghz6603-43-22 06:12:00* Test Item Value Reference Range Interpretation Comments Chloride Level (test code = 2075-0) 108 98-107 H [facility] CenterCarbon Dioxide Iwreu0263-08-19 06:12:00* Test Item Value Reference Range Interpretation Comments Carbon Dioxide Level (test code = 2028-9) 22 - [facility] CenterAnion Ygi4567-25-60 06:12:00* Test Item Value Reference Range Interpretation Comments Anion Gap (test code = 47801-7) 12.7 8-16 [facility] CenterBlood Urea Bcugfosy8954-46-24 06:12:00* Test Item Value Reference Range Interpretation Comments Blood Urea Nitrogen (test code = 3094-0) 9 7-26 [facility] CenterCreatinine2018-09-25 06:12:00* Test Item Value Reference Range Interpretation Comments Creatinine (test code = 2160-0) 0.84 0.57-1.11 [facility] CenterBUN/Creatinine Wbalk1998-99-74 06:12:00* Test Item Value Reference Range Interpretation Comments BUN/Creatinine Ratio (test code = 3097-3) 11 - [facility] CenterEstimat Glomerular Filtration Rate 2018-04-28 06:12:00* Test Item Value Reference Range Interpretation Comments Estimat Glomerular Filtration Rate (test code = 206941227) 60- >60 Ranges were taken from the National Kidney Disease Education Program and the [facility] literature.Reference ranges:60 or greater: Clzvhc16-38 ( for 3 consecutive months): Chronic kidney disease 15 or less: Kidney failureCHI Children'S Medical Center PlanoGlucose Dxqgn6896-87-66 06:12:00* Test Item Value Reference Range Interpretation Comments Glucose Level (test code = ICA2661) 122 74-118 H [facility] CenterCalcium Rfzji6455-36-84 06:12:00* Test Item Value Reference Range Interpretation Comments Calcium Level (test code = 78414-8) 8.3 8.4-10.2 L [facility] CenterWhite Blood Kihdt6944-90-08 05:50:00* Test Item Value Reference Range Interpretation Comments White Blood Count (test code = 6690-2) 5.62 4.8-10.8 [facility] CenterRed Blood Ccrsb7353-05-38 05:50:00* Test Item Value Reference Range Interpretation Comments Red Blood Count (test code = 789-8) 3.76 3.6-5.1 [facility] CenterHemoglobin2018-09-25 05:50:00* Test Item Value Reference Range Interpretation Comments Hemoglobin (test code = 12458-4) 11.5 12.0-16.0 L [facility] CenterHematocrit2018-09-25 05:50:00* Test Item Value Reference Range Interpretation Comments Hematocrit (test code = 4544-3) 35.5 34.2-44.1 [facility] CenterMean Corpuscular Zlfaff6981-88-56 05:50:00* Test Item Value Reference Range Interpretation Comments Mean Corpuscular Volume (test code = 787-2) 94.4 81-99 [facility] CenterMean Corpuscular Stjmaerkxq1820-72-62 05:50:00* Test Item Value Reference Range Interpretation Comments Mean Corpuscular Hemoglobin (test code = 785-6) 30.6 28-32 [facility] CenterMean Corpuscular Hemoglobin Concent 2018-04-28 05:50:00* Test Item Value Reference Range Interpretation Comments Mean Corpuscular Hemoglobin Concent (test code = 786-4) 32.4 31-35 [facility] CenterRed Cell Distribution Ihiog4995-66-23 05:50:00* Test Item Value Reference Range Interpretation Comments Red Cell Distribution Width (test code = 44696-7) 14.1 11.7 -14.4 [facility] CenterPlatelet Uwwjp4928-76-79 05:50:00* Test Item Value Reference Range Interpretation Comments Platelet Count (test code = 777-3) 124 140-360 L [facility] CenterNeutrophils (%) (Auto)2018-04-28 05:50:00 * Test Item Value Reference Range Interpretation Comments Neutrophils (%) (Auto) (test code = 19038-9) 46.9 38.7-80.0 [facility] CenterLymphocytes (%) (Auto)2018-04-28 05:50:00 * Test Item Value Reference Range Interpretation Comments Lymphocytes (%) (Auto) (test code = 736-9) 43.4 18.0-39.1 H [facility] CenterMonocytes (%) (Auto)2018-04-28 05:50:00* Test Item Value Reference Range Interpretation Comments Monocytes (%) (Auto) (test code = 5905-5) 7.3 4.4-11.3 [facility] CenterEosinophils (%) (Auto)2018-04-28 05:50:00 * Test Item Value Reference Range Interpretation Comments Eosinophils (%) (Auto) (test code = 713-8) 1.4 0.0-6.0 [facility] CenterBasophils (%) (Auto)2018-04-28 05:50:00* Test Item Value Reference Range Interpretation Comments Basophils (%) (Auto) (test code = 706-2) 0.5 0.0-1.0 [facility] CenterIM GRANULOCYTES %2018-04-28 05:50:00* Test Item Value Reference Range Interpretation Comments IM GRANULOCYTES % (test code = IM GRANULOCYTES %) 0.5 0.0- 1.0 [facility] CenterNeutrophils # (Auto)2018-04-28 05:50:00* Test Item Value Reference Range Interpretation Comments Neutrophils # (Auto) (test code = 751-8) 2.6 2.1-6.9 [facility] CenterLymphocytes # (Auto)2018-04-28 05:50:00* Test Item Value Reference Range Interpretation Comments Lymphocytes # (Auto) (test code = 06235-3) 2.4 1.0-3.2 [facility] CenterMonocytes # (Auto)2018-04-28 05:50:00* Test Item Value Reference Range Interpretation Comments Monocytes # (Auto) (test code = 742-7) 0.4 0.2-0.8 [facility] CenterEosinophils # (Auto)2018-04-28 05:50:00* Test Item Value Reference Range Interpretation Comments Eosinophils # (Auto) (test code = 711-2) 0.1 0.0-0.4 [facility] CenterBasophils # (Auto)2018-04-28 05:50:00* Test Item Value Reference Range Interpretation Comments Basophils # (Auto) (test code = 704-7) 0.0 0.0-0.1 [facility] CenterAbsolute Immature Granulocyte (auto 2018-04-28 05:50:00* Test Item Value Reference Range Interpretation Comments Absolute Immature Granulocyte (auto (amanda t code = Absolute Immature Granulocyte (auto) 0.03 0-0.1 [facility] CenterTotal Uehlbqpuw8035-29-80 06:01:00* Test Item Value Reference Range Interpretation Comments Total Bilirubin (test code = 1975-2) 1.0 0.2-1.2 [facility] CenterAspartate Amino Transf (AST/SGOT) 2018-04-26 06:01:00* Test Item Value Reference Range Interpretation Comments Aspartate Amino Transf (AST/SGOT) (test code = Aspartate Amino Transf (AST/SGOT)) 25 5-34 [facility] CenterAlanine Aminotransferase (ALT/SGPT) 2018-04-26 06:01:00* Test Item Value Reference Range Interpretation Comments Alanine Aminotransferase (ALT/SGPT) (test code = 1742-6) 21 0-55 [facility] CenterTotal Enzormv6240-07-76 06:01:00* Test Item Value Reference Range Interpretation Comments Total Protein (test code = 2885-2) 6.9 6.5-8.1 [facility] CenterAlbumin2018-09-23 06:01:00* Test Item Value Reference Range Interpretation Comments Albumin (test code = 1751-7) 3.8 3.5-5.0 [facility] CenterGlobulin2018-09-23 06:01:00* Test Item Value Reference Range Interpretation Comments Globulin (test code = 43229-3) 3.1 2.3-3.5 [facility] CenterAlbumin/Globulin Vlrea2002-71-59 06:01:00 * Test Item Value Reference Range Interpretation Comments Albumin/Globulin Ratio (test code = 1759-0) 1.2 0.8-2.0 [facility] CenterAlkaline Vxyniubklyn5140-92-98 06:01:00* Test Item Value Reference Range Interpretation Comments Alkaline Phosphatase (test code = 6768-6) 91 40-150 [facility] CenterCT BRAIN EF5424-32-15 11:13:00 [facility] [address] [place] [address] Patient Name: KATELYNN CARNEY MR #: [id number] : 1950 Age/Sex: 67/F Req #: [id number] Adm Physician: Ordered by: ROGELIO DAMICO MD Report #: [id number] Location: Banner/Bed: Procedure: [id number] CT/CT BRAIN WO Exam Gunnar e: 04/25/18 Exam Time: 1040 REPORT STATUS: Sign ed ADDENDUM #1 The preliminary report was reviewed and a final report issued by Dr. Acuna neuroradiologist on 04/25/2018 at 12:14 PM. Signed by: Dr. Sarath Acuna M.D. on 04/25/2018 12:14 PM ORIG INAL REPORT History:67-year-old female with chronic liver disease, weakness and confusion Comparison studies: 11/26/2017 Technique: A xial images were obtained from the skull base to the vertex. Coronal and sagit darrius images reconstructed from the axial data. Dose modulation, iterative recon struction, and/or weight based adjustment of the mA/kV was utilized to reduce the radiation dose to as low as reasonably achievable. Intravenous cont rast: None Findings: Scalp/skull: No abnormalities. Extra-axia l spaces: No masses. No fluid collections. Brain sulci: Moderately prom inent. Ventricles: Mild compensatory dilatation. No hydrocephalus. Parenc hyma: Mild hypodensities in the supratentorial white matter are small vessel ischemic changes. No masses, hemorrhage, acute or chronic cortical vascular in sults. Sellar/suprasellar region: No abnormalities. Craniocervical juncti on: Patent foramen magnum. No Chiari one malformation. Incidental findings : Atherosclerotic calcifications in the carotid siphons and vertebral arteries at the level of the foramen magnum . Impression: No acute abnormali ties. Chronic findings: 1. Mild to moderate generalized volume loss. 2 . Mild supratentorial white matter small vessel ischemic changes. Signed b y: Reggie Barnett MD on 04/25/2018 11:17 AM Dictated By: JENNY HERNANDEZ SE, MD 1214 Trans cribed By: JAY JAY on 04/25/18 1117 COPY TO: ROGELIO DAMICO MD Urine Oyppe0482-41-49 10:57:00* Test Item Value Reference Range Interpretation Comments Urine Color (test code = 5778-6) YELLOW YELLOW [facility] CenterUrine Ixqhzrl9224-03-53 10:57:00* Test Item Value Reference Range Interpretation Comments Urine Clarity (test code = 96300-0) CLOUDY CLEAR H [facility] CenterUrine Specific Wsidrlx8664-01-71 10:57:00 * Test Item Value Reference Range Interpretation Comments Urine Specific [place] (test code = 5811-5) 1.005 1.010-1.02 5 L [facility] CenterUrine sW4602-52-73 10:57:00* Test Item Value Reference Range Interpretation Comments Urine pH (test code = 18201-7) 6 5-7 [facility] Leukocyte Uysbrmtp4703-90-72 10:57:00* Test Item Value Reference Range Interpretation Comments Urine Leukocyte Esterase (test code = 5799-2) TRACE NEGATIVE H [facility] CenterU[facility] Kxssmmv1813-92-96 10:57:00* Test Item Value Reference Range Interpretation Comments Urine Nitrite (test code = 44330-0) NEGATIVE NEGATIVE [facility] Hwztppu4551-94-66 10:57:00* Test Item Value Reference Range Interpretation Comments Urine Protein (test code = 5804-0) NEGATIVE NEGATIVE [facility] Glucose (UA)2018-04-25 10:57:00* Test Item Value Reference Range Interpretation Comments Urine Glucose (UA) (test code = 2349-9) NEGATIVE NEGATIVE [facility] Fatdvzy6605-83-64 10:57:00* Test Item Value Reference Range Interpretation Comments Urine Ketones (test code = 80542-0) NEGATIVE NEGATIVE [facility] Center[facility] Lvhhjyxdsgkj9371-53-66 10:57:00* Test Item Value Reference Range Interpretation Comments Urine Urobilinogen (test code = 61922-1) 0.2 0.2-1 [facility] Center[facility] Ckgupcdin8062-85-24 10:57:00* Test Item Value Reference Range Interpretation Comments Urine Bilirubin (test code = 1978-6) NEGATIVE NEGATIVE [facility] Center[facility] Vcrcv6480-80-36 10:57:00* Test Item Value Reference Range Interpretation Comments Urine Blood (test code = 30444-3) NEGATIVE NEGATIVE [facility] CenterU[facility] VHZ2373-60-99 10:57:00* Test Item Value Reference Range Interpretation Comments Urine WBC (test code = 5821-4) 6-10 0-5 H [facility] FUP7651-38-40 10:57:00* Test Item Value Reference Range Interpretation Comments Urine RBC (test code = 29298-3) 0-5 0-5 [facility] Gfhgrfzd6443-50-21 10:57:00* Test Item Value Reference Range Interpretation Comments Urine Bacteria (test code = 86712-3) MODERATE NONE H [facility] CenterU[facility] Epithelial Mirmv9560-41-44 10:57:00 * Test Item Value Reference Range Interpretation Comments Urine Epithelial Cells (test code = 90676-6) MODERATE NONE [facility] CenterCreatine Kinase PP6571-25-65 10:13:00* Test Item Value Reference Range Interpretation Comments Creatine Kinase MB (test code = 08768-1) 0.60 0-5.0 [facility] CenterTroponin A6151-83-64 10:13:00* Test Item Value Reference Range Interpretation Comments Troponin I (test code = RGP2388) -0.001 0-0.300 [facility] CenterThyroid Stimulating Hormone (TSH) 2018-04-25 10:13:00* Test Item Value Reference Range Interpretation Comments Thyroid Stimulating Hormone (TSH) (test code = 03895-0) 1.836 0.350-4.940 [facility] CenterThyroid Stimulating Hormone (TSH) 2018-04-25 10:13:00* Test Item Value Reference Range Interpretation Comments Thyroid Stimulating Hormone (TSH) (test code = 78113-4) 1.836 0.350-4.940 [facility] CenterActivated Partial Thromboplast Time 2018-04-25 10:04:00* Test Item Value Reference Range Interpretation Comments Activated Partial Thromboplast Time (test code = 87701-2) 26.5 23.8-35.5 [facility] CenterB-Type Natriuretic Tzgiuks9544-64-94 10:00:00* Test Item Value Reference Range Interpretation Comments B-Type Natriuretic Peptide (test code = 23253-7) 27.7 0-100 [facility] CenterB-Type Natriuretic Ecgcuzn4502-96-39 10:00:00* Test Item Value Reference Range Interpretation Comments B-Type Natriuretic Peptide (test code = 39286-0) 27.7 0-100 [facility] CenterProthrombin Mywt8357-38-94 09:54:00* Test Item Value Reference Range Interpretation Comments Prothrombin Time (test code = 5902-2) 13.0 11.9-14.5 [facility] CenterProthromb Time International Ratio 2018-04-25 09:54:00* Test Item Value Reference Range Interpretation Comments Prothromb Time International Ratio (test code = 6301-6) 0.90 Oral Anticoagulant Therapy INR Values:1. Low Intensity Therapy 1.5 - 2.02 . Moderate Intensity Therapy 2.0 - 3.03. High Intensity Therapy(1) 2.5 - 3. 54. High Intensity Therapy(2) 3.0 - 4.05. Panic Value INR > 5.0 [facility] CenterMagnesium Mhydx8332-84-27 09:54:00* Test Item Value Reference Range Interpretation Comments Magnesium Level (test code = 74735-2) 1.8 1.3-2.1 [facility] CenterCreatine Rmzwyf1271-95-34 09:54:00* Test Item Value Reference Range Interpretation Comments Creatine Kinase (test code = 2157-6) 42 29-168 [facility] CenterAmylase Pjpfa6120-12-47 09:54:00* Test Item Value Reference Range Interpretation Comments Amylase Level (test code = 1798-8) 38 25-125 [facility] CenterLipase2018-09-22 09:54:00* Test Item Value Reference Range Interpretation Comments Lipase (test code = 3040-3) 20 8-78 [facility] CenterLactic Acid Bpnyd9527-66-88 09:49:00* Test Item Value Reference Range Interpretation Comments Lactic Acid Level (test code = Lactic Acid Level) 19.3 4.5- 19.8 [facility] CenterLactic Acid Gkzbn5857-95-42 09:49:00* Test Item Value Reference Range Interpretation Comments Lactic Acid Level (test code = Lactic Acid Level) 19.3 4.5- 19.8 [facility] CenterCHEST SINGLE (PORTABLE)2018-04-25 09:47:00 [facility] [address] [address] Patient Name: KATELYNN CARNEY MR #: [id number] : 1950 Age/Sex: 67/F Req #: [id number] Adm Physician: Ordered by: ROGELIO DAMICO MD Report #: [id number] Location: ER Room/Bed: Procedure: [id number] DX/CHEST SINGLE (PORTABL E) Exam Date: 04/25/18 Exam Time: 930 REPORT STATUS: Signed Examination: Single AP view of the chest. COMPARISON: Mul tiple prior chest radiograph INDICATION: Generalized weakness and confusion , altered mental status DISCUSSION: Lines/tubes: None. Lung s: The lungs are well inflated and clear. No pneumonia or pulmonary edema. Pleura: No pleural effusion or pneumothorax. Heart and mediastinum: The heart and the mediastinum are unremarkable. Bones and soft tissues: No acu te bony abnormalities. IMPRESSION: 1. No acute cardiopulmonary abnormalities. Signed by: Dr. Speedy Horton M.D. on 04/25/2018 9:48 AM Dictated By: SPEEDY HORTON MD 7 Transcribed By: JAY JAY on 04/25/18947 COPY TO: ROGELIO DAMICO MD Abeeupk1019-32-25 09:44:00* Test Item Value Reference Range Interpretation Comments Ammonia (test code = 77573-7) 51 -123 [facility] CenterAmmonia2018-09-22 09:44:00* Test Item Value Reference Range Interpretation Comments Ammonia (test code = 61289-2) 51 -123 [facility] CenterUS GUIDANCE FOR VASCULAR NQOQA8850-29-38 12:29:00 [place] [address] Patient Name: KATELYNN CARNEY MR #: [id number] : 1950 Age/Sex: 67/F Req #: [id number] Adm Physician: Ordered by: MICHAEL BOO MD Report #: [id number] Location: [place] Room/Bed: Procedure: [id number] US/US GUIDANCE FOR VASCULAR ACCES Exam Date: Exam Time: REPORT STATUS: Signed PROCEDURE: US GUIDANCE FOR VASCULAR ACCESS COMPARISON: None. INDICATIONS: Lack of IV access FINDINGS: Ultrasound evaluation of potential access sites was performed. After successfully identifying a pat ent vessel, US guidance was used to puncture the vein. A permanent recording was created for the patient record. CONCLUSION: Successful IV access by Ultrasound guidance. Nikolas Sheriff M.D. Dictated by: Freddie Sheriff M.D. on 03/10/2018 at 12:29 Electronically approved by: Jose Elias Sheriff M.D. on 03/10/2018 at 12:29 Dictated By: DARON SHERIFF MD 1229 Tra nscribed By: WHITNEY on 03/10/18 1229 COPY TO: MICHAEL BOO MD CT ABDOMEN/PELVIS [id number] 09:23:00 [place] [address] Patient Name: KATELYNN CARNEY MR #: [id number] : 1950 Age/Sex: 67/F Req #: [id number] Adm Physician: Ordered by: MICHAEL BOO MD Report #: [id number] Location: CT Room/Bed: Procedure: [id number] CT/CT ABDOMEN/PELVIS W Latrice erik Date: 03/03/18 Exam Time: 829 REPORT STATUS: Signed PROCEDURE: CT ABDOMEN AND PELVIS WITH CONTRAST TECHNIQUE: The abdomen and pelvis were scanned utilizing a multidetector helical scanner f rom the diaphragm to the lesser trochanter after the IV administration of 100 cc of Isovue 370 and the oral administration of water. Coronal and sagittal multiplanar reformations were obtained. COMPARISON: 05/06/2017 INDICA TIONS: abdomen pain FINDINGS: LOWER THORAX: Normal. HEPATOBILIAR Y: No focal hepatic lesion. Hepatic parenchyma is diffusely hypoattenuating c ompatible with steatosis. No intrahepatic biliary ductal dilatation. Status p ost cholecystectomy with stable mild prominence of the common bile duct. SP SIENNA: No splenomegaly. PANCREAS: No focal masses or ductal dilatation. A DRENALS: No adrenal nodules. KIDNEYS/URETERS: Stable 1.7 cm exophytic cyst ryan sing from the upper pole of the left kidney. No additional focal renal lesion . No hydronephrosis. No calculus. PELVIC ORGANS/BLADDER: The urinary bladde r is incompletely distended but otherwise unremarkable. The uterus is not ritchie ntified and has presumably been removed. No adnexal mass. PERITONEUM / RETROPERITONEUM: No ascites. No pneumoperitoneum. LYMPH NODES: No pelvic sidew all, retroperitoneal, or mesenteric lymphadenopathy. VESSELS: Marginal inte rval increase in size of infrarenal abdominal aortic aneurysm, now measuring 4.2 cm AP by 4 cm transverse (previously 3.9 cm AP by 3.9 cm transverse). As before, the aneurysm extends to the bifurcation and measures approximately 7. 3 cm in aggregate cranial caudal dimension. Concentric mural thrombus is unch anged There are 2 left renal arteries and a single right renal artery with an early bifurcation. Portal vein, splenic vein, and the central superior me senteric vein are patent. Patent bilateral external iliac stents with extensi ve atherosclerotic disease. 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 Unchanged, patent superior mes enteric arterial stent. GI TRACT: The distal large bowel is collapsed and poorly evaluated. No gross wall thickening or distention. The appendix is nor mal. Mild prominence of the gastric rugal folds as a consequence of under distention. No small bowel dilatation to suggest obstruction. BONES AND SO FT TISSUES: No focal soft tissue abnormalities. Multiple soft tissue injectio n granulomata in the bilateral gluteal subcutaneous fat. Bone island in the r ight sacral ala. Multilevel degenerative disc changes and facet arthropathy o f the lumbar spine. IMPRESSION: No acute intra-abdominal or pelvic C T abnormalities. Hepatic steatosis. Marginal interval increase in si ze of infrarenal abdominal aortic aneurysm, now measuring 4.1 cm in maximum d iameter. Continued surveillance is suggested. Dictated by: Gilson Clifford on 03/03/2018 at 9:23 Electronically approved by: Gilson Mast M.D. on 03/03/2018 at 9:23 Dictated By: GILSON MAST MD Electronical ly Signed By: GILSON MAST MD on 03/03/18922 Transcribed By: WHITNEY on 922 COPY TO: MICHAEL BOO MD [place] [address] Patient Name: KATELYNN CARNEY MR #: [id number] : 1950 Age/Sex: 67/F Req #: [id number] Adm Physician: Ordered by: MICHAEL BOO MD Report #: [id number] Location: US Room/Bed: Procedure: [id number] US/US LIVER Exam Date: Exam Time: REPORT STATUS: Signed PROCEDURE: US LIVER COMPARISON: 12/01/2013, CT abdomen and pelvis 04/01/2015. INDICATI ONS: Hepatic steatosis TECHNIQUE: Alfonso-scale and color doppler transverse an d longitudinal images of the right upper quadrant of the abdomen were obtaine d. FINDINGS: Liver: 16.6 cm in right mid-clavicular line. Diffuse ly increased parenchymal echogenicity. No masses. Main portal vein: 1.5 cm in caliber, enlarged with hepatopedal flow. Gallbladder: Surgically remove d. Common Bile Duct: 0.8 cm in caliber, mildly dilated, likely related to p rior cholecystectomy. Right kidney: 10.9 cm. Normal renal cortical echogen icity. No solid masses or hydronephrosis. Pancreas: The visualized port ions are unremarkable. Inferior vena cava: Patent Aorta: Fusiform aneury smal dilatation of the distal abdominal aorta measuring 3.8 cm AP by 3.9 cm t ransverse (3.4 cm AP by 3.3 cm transverse on comparison CT from March 2015). Ascites: None in the right upper quadrant of the abdomen. CONCLUSION: Hepatomegaly with hepatic steatosis. Mild interval increase in size of fusiform infrarenal abdominal aortic aneurysm, now measuring 3.9 cm in maxim um transverse dimension. Surveillance cross-sectional imaging is suggested as indicated. Dictated by: Gilson Mast M.D. on 12/31/2017 at 8:27 El ectronically approved by: Gilson Mast M.D. on 12/31/2017 at 8:27 Dictated By: GILSON MAST MD 6 COPY TO: SOLOMON BOO MD CT BRAIN WO [place] [id number] Patient Name: KATELYNN CARNEY MR #: [id number] : 1950 Age/Sex: 67/F Req #: [id number] Adm Physician: Ordered by: MARTIN STINSON MD Report #: [id number] Location: CT Room/Bed: Procedure: [id number] CT/CT BRAIN WO Exam Date: 11/26/17 Exam Time: 1150 REPORT STATUS: Signed EXAMINATION: Head CT HISTORY: Perfusion off, sleep walking, memory loss, COMPARISON: None. TECHNIQUE: Multidetector axial images were obtained with out contrast from the foramen magnum to the vertex . The images were reconstru cted using brain and bone algorithms. Thin section brain images were reformat jane into coronal and sagittal planes. Intravenous contrast: None. Motion/ streaking artifact limits the evaluation of the skull base and posterior crani al fossa. FINDINGS: Parenchyma: 1. A few scattered white harry er hypodensities, most likely nonspecific chronic microvascular ischemic judd es. 2. No mass or hemorrhage. No CT evidence of acute territorial vascular in sult. Extra-axial spaces:No abnormal density. No extra-axial fl uid collections Brain volume: Normal for age. Ventricles: No hyd rocephalus or displacement. Arteries: No density suggestive of thrombus . Dural sinuses: No abnormal density. Extra-axial spaces: No abn ormal density. Foramen magnum: No mass, Chiari malformation, or basilar invagination. Sella: No obvious mass. Paranasal/mastoid sinuses : Imaged portions unremarkable. Skull/Scalp: No lytic or blastic lesions . No fractures. IMPRESSION: Mild chronic microvascular ischemic chaparro ges. Otherwise no intracranial abnormalities, particularly no mass, hemorrhage or acute cortical infarct. Signed by: Dr. Sarath Acuna M.D. on 11/26/2017 1 2:52 PM Dictated By: SARATH ACUNA MD 1252 Transcribed By: JAY JAY on 11/26/17 1252 COPY TO: MARTIN STINSON MD CT ABDOMEN/PELVIS W [facility] [address] [address] Patient Name: KATELYNN CARNEY MR #: [id number] : 1950 Age/Sex: 66/F Req #: [id number] Adm Physician: MARTIN STINSON MD Ordered by: MICHAEL BOO MD Report #: [id number] Location: MED/SURG2 Room/Bed: [facility] Procedure: [id number]/CT ABDOMEN/PELVIS W Exam Date: 05/06/17 Exam Ti me: 1320 REPORT STATUS: Signed PROCEDURE: CT ABDOMEN AND PELVIS WITH CO NTRAST TECHNIQUE: The abdomen and pelvis were scanned utilizing a multi detector helical scanner from the diaphragm to the lesser trochanter after th e IV administration of 100 cc of Isovue 370. No oral contrast was given as patient complained of vomiting. Coronal and sagittal multiplanar reformations were obtained. COMPARISON: [facility], CT, CT ABDOMEN/PELVIS W, 12/17/2016, 20:48. INDICATIONS: INTRACTABLE VOMITTING FINDI NGS: LOWER THORAX: Lung bases are grossly clear. HEPATOBILIARY: No focal hepatic lesions. No intrahepatic biliary ductal dilation. Stable mild promin ence of the common bile duct, which measures approximately 7-8 mm at the port a hepatis. No intraluminal filling defects. Cholecystectomy clips. SPLEEN: Stable splenomegaly, measuring 13.1 cm in craniocaudal diameter. PANCREAS: No focal masses or ductal dilatation. ADRENALS: No adrenal nodules. KIDN EYS/URETERS: No hydronephrosis, stones, or solid mass lesions. Stable 1.7 x 1 .7 cm partially exophytic hypodense lesion in the lateral interpolar region o f the left kidney, which measures fluid density. PELVIC ORGANS/BLADDER: Bladde r is unremarkable. PERITONEUM / RETROPERITONEUM: No free air or fluid. L YMPH NODES: No lymphadenopathy. VESSELS: Stable 3.8 x 3.8 cm infrarenal abdomi nal aortic aneurysm, which measures approximately 7-8 cm in length. No periao rtic hematoma. GI TRACT: Persistent diffuse thickening of the stomach fund us and part of the body. Rest of the bowel shows no dilation, obstruction, or wall thickening. No pericolonic inflammatory changes. BONES AND SOFT T ISSUES: No acute bony abnormalities. IMPRESSION: 1. persistent diffu se thickening of the stomach fundus and part of the body. This may reflect ch ronic gastritis, however, direct visualization with endoscopy is recommended to exclude neoplasm. 2. Stable splenomegaly. 3. Stable infrarenal abdominal aortic aneurysm. Nikolas Sheriff M.D. Dictated by: Nikolas Sheriff M.D. on 05/06/2017 at 17:23 Electronically approved by: Daron Sheriff M.D. on 05/06/2017 at 17:23 Dictated By: NIKOLAS SHERIFF MD 22 Trans cribed By: WHITNEY on 05/06/171722 COPY TO: MICHAEL BOO MD CHEST 2 VIEWS [place] [address] Patient Name: KATELYNN CARNEY MR #: [id number] : 1950 Age/Sex: 66/F Req #: [id number] Adm Physician: MARTIN STINSON MD Ordered by: MICHAEL BOO MD Report #: [id number] Location: MED/SURG2 Room/Bed: 200-1 Procedure: [id number] DX/CHEST 2 VIEWS Exam Date: 04/30/17 Exam Time: 06 35 REPORT STATUS: Signed PROCEDURE: X-RAY CHEST, TWO VIEWS COMPARISON : None. INDICATIONS: LEUKOCYTOSIS FINDINGS: Tip of right upper e xtremity PICC is unchanged, projecting over the mid superior vena cava. Lungs remain well-inflated and without consolidation, pleural effusion, or p neumothorax. Mild biapical pleural-parenchymal scar is unchanged. Tortuosi ty and atherosclerotic calcification of the thoracic aorta with otherwise nor mal heart size and pulmonary vasculature. No acute osseous abnormality. Le ft glenohumeral degenerative changes. CONCLUSION: No acute cardiopulm onary abnormality. Dictated by: Gilson Mast M.D. on 04/30/2017 at 7:05 Electronically approved by: Gilson Mast M.D. on 04/30/2017 at 7:05 Dictated By: GILSON MAST MD 4 Transcribed By: WHITNEY on 04/30/17 07 COPY TO: MICHAEL AZEVEDO MD CHEST XRAY LINE PLACEMENT [place] [address] Patient Name: KATELYNN CARNEY MR #: [id number] : 1950 Age/Sex: 66/F Req #: [id number] Adm Physician: MARTIN STINSON MD Ordered by: MARTIN STINSON MD Report #: [id number] Location: [facility] Room/Bed: [place] [address] Procedure: [id number] DX/CHEST XRAY LINE PLACEMENT Exam Date: 04/28/17 E xam Time: 1449 REPORT STATUS: Signed PROCEDURE: A single AP view of t he chest. COMPARISON: 12/17/2016 INDICATIONS: picc line placement t moe FINDINGS: Lines/tubes: Right upper extremity PICC line has its tip in the SVC. Lungs: The lungs are well inflated and clear. There is no evidence of pneumonia or pulmonary edema. Pleura: There is no pleural effusion or pneumothorax. Heart and mediastinum: The heart and the media stinum are unremarkable. Bones: No acute bony abnormality. IMPRESSI ON: Right upper extremity PICC line has its tip in the SVC. Dictat ed by: Sulaiman Plunkett M.D. on 04/28/2017 at 15:07 Electronically approve d by: Sulaiman Plunkett M.D. on 04/28/2017 at 15:07 Dictated By: SULAIMAN PLUNKETT MD 1501 Transcribed By: WHITNEY on 04/28/17 150 COPY TO: MARTIN STINSON MD
--- NOTE | 2020-04-03 12:20 | Emergency Department Note ---
History of Present Illnes History of Present Illness Chief Complaint: Extremity Trauma/Pain History of Present Illness This is a 69 year old female 2 days of moveable bump of left arm around medial anticubital fossa. States smaller today. No redness, swelling, or pain. Historian: Patient Arrival Mode: [employer] Solution Manager Required: No Onset (how long ago): day(s) Radiation: Reports non-radiation Severity: unable to specify (no pain) Duration (how long): day(s) Progression: improving Context: Denies recent illness Relieving factors: none Exacerbating factors: none Associated symptoms: Reports denies other symptoms; Denies confusion, Denies chest pain, Denies diaphoresis, Denies fever/chills, Denies nausea/vomiting, Denies rash, Denies shortness of breath Past Medical/Family History Physician Review I have reviewed the patient's past medical and family history. Any updates have been documented here. Past Medical History Recent Fever: No Clinical Suspicion of Infectio: No New/Unexplained Change in Ment: No Past Medical History: Hypertension, Hyperlipedemia Other Medical History: chronic back pain arterio sclerosis aortic aneursym PAD NON-ALCOHOLIC STEATOHEPATITIS DEGENERATIVE DISC DISEASE Past Surgical History: Cholecysctectomy, Hysterectomy Other Surgery: BLADDER SURGERY Social History Smoking Cessation: Current some day smoker Counseling Performed: No Alcohol Use: None Any Illegal Drug Use: No Physically hurt or threatened: No Other Last Tetanus: UNKNOWN Any Pre-Existing Lines (PICC,: Yes Review of Systems Review of Systems Constitutional: Reports no symptoms EENTM: Reports no symptoms Cardiovascular: Reports no symptoms Respiratory: Reports no symptoms Gastrointestinal: Reports no symptoms Genitourinary: Reports no symptoms Musculoskeletal: Reports as per HPI Integumentary: Reports no symptoms Neurological: Reports no symptoms Psychological: Reports no symptoms Endocrine: Reports no symptoms Hematological/Lymphatic: Reports no symptoms Physical Exam Related Data Allergies: Coded Allergies: Penicillins (Verified Allergy, Mild, BLISTERS ON HANDS, 12/17/16) cephalexin (Verified Allergy, Mild, BLISTERS ON HANDS, 12/17/16) tetracycline (Verified Allergy, Mild, BLISTERS ON HANDS, 12/17/16) Triage Vital Signs Vital Signs Date Time Temp Pulse Resp B/P (MAP) Pulse Ox O2 Delivery O2 Flow Rate FiO2 03/31/20 12:23 98.8 93 18 158/83 98 Room Air Physical Exam CONSTITUTIONAL Constitutional: Present well-developed, Present well-nourished HENT HENT: Present normocephalic, Present atraumatic, Present oropharynx clear/moist, Present nose normal HENT L/R: Present left ext ear normal, Present right ext ear normal EYES Eyes: Reports PERRL, Reports conjunctivae normal NECK Neck: Present ROM normal PULMONARY Pulmonary: Present effort normal, Present breath sounds normal CARDIOVASCULAR Cardiovascular: Present regular rhythm, Present heart sounds normal, Present capillary refill normal, Present normal rate GASTROINTESTINAL Abdominal: Present soft, Present nontender, Present bowel sounds normal GENITOURINARY Genitourinary: Present exam deferred SKIN Skin: Absent rash MUSCULOSKELETAL Musculoskeletal: Present ROM normal, Present other (medial aspect of left forarm part of anticubital fossa with moveable firm mass. non -tender. No erythema. FROM of left elbow without difficulty. No tenderness, swelling, drainage, redness, or decreased ROM at L elbow or distal to L elbow.); Absent edema, Absent deformity, Absent tenderness, Absent swelling NEUROLOGICAL Neurological: Present alert, Present oriented x 3 PSYCHOLOGICAL Psychological: Present mood/affect normal Procedures FAST Exam Additional comments Bedside ultrasound performed by me using linear probe over affected area shows bedside ultrasound performed by me limited to affected area. Area with peripheral artery and vein. Vein collapsible throughout it's course. Assessment & Plan Medical Decision Making MDM Left arm with freely moveable non-tender firm mass. No signs of infection at site or distal to site as likely cause. No other lymph nodes palpable to suspect cancer or systemic disease. Differential diagnosis includes venous blood clot, but if + clot would be peripheral vein and not DVT. Furthermore, bedside ultrasound showed peripheral vein in area that was compressible. Patient to follow up with PCP promptly and gave strict return precautions. Assessment & Plan Final Impression: (1) Lymphadenitis Depart Disposition: HOME, SELF-CARE Last Vital Signs Date Time Temp Pulse Resp B/P (MAP) Pulse Ox O2 Delivery O2 Flow Rate FiO2 03/31/20 12:23 98.8 93 18 158/83 98 Room Air Home Meds Reported Medications Hydromorphone Hcl (DILAUDID) 2 Mg Tab, 4 MG PO Q12H 01/12/19 [Movantik] No Conflict Check, 25 MG PO DAILY 01/12/19 Aspirin (ASPIR 81) 81 Mg Tablet.dr, 81 MG PO DAILY 10/26/18 Clopidogrel Bisulfate (CLOPIDOGREL) 75 Mg Tablet, 75 MG PO DAILY 10/26/18 Omeprazole (OMEPRAZOLE) 40 Mg Capsule.dr, 20 MG PO DAILY 10/26/18 Alprazolam (ALPRAZOLAM) 1 Mg Tablet, 2 MG PO HS, #30 TAB 10/26/18 Alprazolam (ALPRAZOLAM) 1 Mg Tablet, 1 MG PO BID, #30 TAB 10/26/18 Fentanyl (FENTANYL) 1 Each Patch.td72, 25 MCG TOP .q72h 06/14/18 Rosuvastatin Calcium (CRESTOR) 10 Mg Tab, 40 MG PO DAILY THERAPEUTICALLY SUBSTITUTED WITH SIMVASTATIN 40MG 07/11/16 Fosinopril Sodium (FOSINOPRIL SODIUM) 10 Mg Tablet, 10 MG PO DAILY, #30 TAB 04/01/15 [Phenergan] No Conflict Check, 25 MG PO TID PRN for NAUSEA AND VOMITING 12/20/13 JEFFERY BRYANT MD Mar 31, 2020 14:16
== END | disposition home or self-care (01) ==
LOC: FSED 14:15
DX: I88.9 Nonspecific lymphadenitis, unspecified (principal); I10 Essential (primary) hypertension; E78.5 Hyperlipidemia, unspecified; I73.9 Peripheral vascular disease, unspecified; M54.9 Dorsalgia, unspecified; G89.29 Other chronic pain
CPT/HCPCS: 99282

== ENCOUNTER 2023-01-14 12:10 | Inpatient (IN) | payer MEDICARE, OTHER ==
[~2023-01-14] VITALS: Ht 154.9 cm; Wt 72.6 kg
[2023-01-14] MEDS ORDERED: FAMOTIDINE 20 MG/2 ML VIAL IV STA (12:33)
[2023-01-14] MEDS ORDERED: ONDANSETRON HCL INJ 2MG/ML 2ML 2 MG/ML VIAL IV STA (12:33)
[2023-01-14] MEDS ORDERED: SODIUM CHLORIDE 0.9% 1000ML 1,000 ML IV STA (12:33)
[2023-01-14 13:19] LABS: BASOPHILS % 0.3 % (0.0-1.0); EOSINOPHILS # (AUTO) 0.1 (0.0-0.4); EOSINOPHILS % 0.4 % (0.0-6.0); HEMATOCRIT 43.7 % (34.2-44.1); HEMOGLOBIN 14.6 g/dL (12.0-16.0); LYMPHOCYTES # (AUTO) 2.7 (1.0-3.2); LYMPHOCYTES % 22.2 % (18.0-39.1); MEAN CORPUSCULAR HEMOGLOBIN 29.6 pg (28-32); MEAN CORPUSCULAR HGB CONC 33.4 g/dL (31-35); MEAN CORPUSCULAR VOLUME 88.5 fL (81-99); MONOCYTES # (AUTO) 0.9 (0.2-0.8); MONOCYTES % 7.6 % (4.4-11.3); NEUTROPHILS # (AUTO) 8.5 (2.1-6.9); NEUTROPHILS % 69.3 % (38.7-80.0); PLATELET COUNT 269 x10e3/uL (140-360); RED BLOOD COUNT 4.94 x10e6/uL (3.6-5.1); RED CELL DISTRIBUTION WIDTH 14.6 % (11.7-14.4)
[2023-01-14 13:51] LABS: ALANINE AMINOTRANSFERASE 61 IU/L (0-55); ALBUMIN/GLOBULIN RATIO 1.1 (0.8-2.0); ALKALINE PHOSPHATASE 99 IU/L (40-150); ANION GAP 16.5 mmol/L (8-16); BLOOD UREA NITROGEN 29 mg/dL (7-26); BUN/CREATININE RATIO 21 (6-25); CALCIUM 8.5 mg/dL (8.4-10.2); CARBON DIOXIDE 18 mmol/L (22-29); CHLORIDE 106 mmol/L (98-107); CREATININE, SERUM 1.39 mg/dL (0.57-1.11); GLUCOSE 147 mg/dL (74-118); LIPASE 21 U/L (8-78); POTASSIUM 3.5 mmol/L (3.5-5.1); SODIUM 137 mmol/L (136-145)
[2023-01-14] MEDS ORDERED: IOPAMIDOL 370 MG/ML 100 ML INFUS..BTL INJ ONE (13:56)
[2023-01-14] MEDS ORDERED: Morphine 2mg Syringe 2 MG/ML SYR IV ONE (14:15)
[2023-01-14] MEDS ORDERED: PROMETHAZINE 12.5MG/ NACL 0.9% 12.5 MG/50 ML BAG IV ONE (14:15)
[2023-01-14] MEDS: SODIUM CHLORIDE 0.9% 1000ML 1,000 ML IV SCH ×2 (15:27→23:00)
[2023-01-14 15:29] LABS: CLARITY,URINE TURBID (CLEAR); COLOR,URINE YELLOW (YELLOW); KETONES,URINE NEGATIVE (NEGATIVE); LEUKOCYTE ESTERASE ,URINE SMALL (NEGATIVE); NITRITE,URINE POSITIVE (NEGATIVE); PROTEIN,URINE DIPSTICK 1+ (NEGATIVE)
[2023-01-14 15:30] LABS: URINE UROBILINOGEN 0.2 mg/dL (0.2 - 1)
[2023-01-14 15:40] LABS: BACTERIA,URINE MANY /HPF; EPITHELIAL CELLS,URINE MODERATE /LPF
[2023-01-14 16:40] VITALS: PULSE 74; RESP 20; O2SAT 96
[2023-01-14 18:45] VITALS: BP 105/70; PULSE 69; RESP 18; TEMP 97.8; O2SAT 97
[2023-01-14 19:20] VITALS: BP 105/70; PULSE 69; RESP 18; TEMP 97.8; O2SAT 97
[2023-01-14 19:30] VITALS: BP 99/58; PULSE 85; RESP 18; TEMP 97.6; O2SAT 96
[2023-01-14] MEDS ORDERED: AMLODIPINE BESY10 MG PO (19:56)
[2023-01-14] MEDS ORDERED: METOPROLOL SUCC25 MG PO (19:56)
[2023-01-14] MEDS ORDERED: FOSINOPRIL SODI10 MG PO (19:56)
[2023-01-14] MEDS ORDERED: PROTONIX20 MG PO (19:56)
[2023-01-14] MEDS ORDERED: NEURONTIN100 MG PO (19:56)
[2023-01-14] MEDS ORDERED: ULTRAM 50MG50 MG PO (19:56)
[2023-01-14 20:00] VITALS: BP 97/69; PULSE 71; RESP 18; TEMP 97.6; O2SAT 96
[2023-01-14] MEDS: PROMETHAZINE 12.5MG/ NACL 0.9% 12.5 MG/50 ML BAG IV PRN (20:46)
[2023-01-14] MEDS: Morphine 2mg Syringe 2 MG/ML SYR IV PRN (20:56)
[2023-01-14] MEDS: GABAPENTIN 100 MG CAP PO SCH (21:00)
[2023-01-14 23:40] VITALS: PULSE 60; RESP 18; O2SAT 95
[2023-01-15 00:50] LABS: CREATINE KINASE 44 IU/L (29-168)
[2023-01-15] MEDS: SODIUM CHLORIDE 0.9% 1000ML 1,000 ML IV SCH ×3 (01:34→21:00)
[2023-01-15] MEDS: Morphine 2mg Syringe 2 MG/ML SYR IV PRN ×5 (01:34→20:59)
[2023-01-15 04:00] VITALS: BP 107/62; PULSE 62; RESP 20; TEMP 98; O2SAT 96
[2023-01-15] MEDS: PROMETHAZINE 12.5MG/ NACL 0.9% 12.5 MG/50 ML BAG IV PRN ×3 (04:26→20:58)
[2023-01-15 05:45] LABS: BASOPHILS % 0.4 % (0.0-1.0); EOSINOPHILS # (AUTO) 0.1 (0.0-0.4); EOSINOPHILS % 1.1 % (0.0-6.0); HEMOGLOBIN 11.6 g/dL (12.0-16.0); LYMPHOCYTES # (AUTO) 2.4 (1.0-3.2); LYMPHOCYTES % 33.9 % (18.0-39.1); MEAN CORPUSCULAR HEMOGLOBIN 29.3 pg (28-32); MEAN CORPUSCULAR HGB CONC 32.2 g/dL (31-35); MEAN CORPUSCULAR VOLUME 90.9 fL (81-99); MONOCYTES # (AUTO) 0.6 (0.2-0.8); MONOCYTES % 8.3 % (4.4-11.3); PLATELET COUNT 156 x10e3/uL (140-360); RED BLOOD COUNT 3.96 x10e6/uL (3.6-5.1); RED CELL DISTRIBUTION WIDTH 14.6 % (11.7-14.4)
[2023-01-15 06:19] LABS: ALBUMIN 3.1 g/dL (3.5-5.0); ALBUMIN/GLOBULIN RATIO 1.1 (0.8-2.0); ANION GAP 12.3 mmol/L (8-16); CALCIUM 7.5 mg/dL (8.4-10.2); CREATININE, SERUM 0.79 mg/dL (0.57-1.11); POTASSIUM 3.3 mmol/L (3.5-5.1)
[2023-01-15 06:47] LABS: CREATINE KINASE 44 IU/L (29-168)
[2023-01-15 08:30] VITALS: BP 112/73; PULSE 67; RESP 19; TEMP 98.3; O2SAT 99
[2023-01-15 08:32] VITALS: BP 112/73; PULSE 67; RESP 19; TEMP 98.3; O2SAT 99
[2023-01-15] MEDS: GABAPENTIN 100 MG CAP PO SCH ×3 (08:34→20:56)
[2023-01-15] MEDS ORDERED: SIMVASTATIN 40 MG TAB PO SCH (09:00)
[2023-01-15] MEDS ORDERED: CRESTOR 10MG PO SCH (09:00)
[2023-01-15] MEDS ORDERED: XANAX1 MG PO (11:36)
[2023-01-15] MEDS ORDERED: POTASSIUM CHLORIDE 20 MEQ TAB CR PO ONE (19:50)
[2023-01-15 20:00] VITALS: BP 109/86; PULSE 63; RESP 20; TEMP 98.1; O2SAT 97
[2023-01-15] MEDS: CRESTOR 10MG PO SCH (20:56)
[2023-01-16] VITALS (7 sets, daily range): BP systolic 124–164; BP diastolic 67–88; PULSE 69–99; RESP 18–20; TEMP 98–98.6; O2SAT 97–99
[2023-01-16] MEDS: PROMETHAZINE 12.5MG/ NACL 0.9% 12.5 MG/50 ML BAG IV PRN ×3 (04:54→20:17)
[2023-01-16] MEDS: Morphine 2mg Syringe 2 MG/ML SYR IV PRN ×4 (04:56→23:51)
[2023-01-16 06:43] LABS: ANION GAP 10.8 mmol/L (8-16); CALCIUM 7.5 mg/dL (8.4-10.2); CREATININE, SERUM 0.66 mg/dL (0.57-1.11); POTASSIUM 3.8 mmol/L (3.5-5.1)
[2023-01-16] MEDS: GABAPENTIN 100 MG CAP PO SCH ×3 (08:11→20:15)
[2023-01-16] MEDS ORDERED: ONDANSETRON HCL INJ 2MG/ML 2ML 2 MG/ML VIAL IV PRN (13:45)
[2023-01-16] MEDS ORDERED: METOCLOPRAMIDE HCL 10 MG/2ML VIAL IV ONE (13:45)
[2023-01-16] MEDS: SODIUM CHLORIDE 0.9% 1000ML 1,000 ML IV SCH (15:22)
[2023-01-16] MEDS: CRESTOR 10MG PO SCH (20:15)
[2023-01-16] MEDS ORDERED: METOCLOPRAMIDE HCL 10 MG/2ML VIAL IV SCH (23:15)
[2023-01-17] VITALS (9 sets, daily range): BP systolic 117–155; BP diastolic 61–84; PULSE 72–102; RESP 16–20; TEMP 98–99.2; O2SAT 95–100
[2023-01-17] MEDS ORDERED: ONDANSETRON HCL 4 MG ORAL DISINTEGRATING TAB PO PRN (02:00)
[2023-01-17] MEDS ORDERED: METOCLOPRAMIDE HCL 10 MG TAB PO SCH (02:00)
[2023-01-17] MEDS: SODIUM CHLORIDE 0.9% 1000ML 1,000 ML IV SCH ×2 (04:00→12:40)
[2023-01-17] MEDS: Morphine 2mg Syringe 2 MG/ML SYR IV PRN (06:10)
[2023-01-17] MEDS: METOCLOPRAMIDE HCL 10 MG/2ML VIAL IV SCH ×4 (06:10→23:17)
[2023-01-17 07:01] LABS: ANION GAP 15.3 mmol/L (8-16); CALCIUM 8.5 mg/dL (8.4-10.2); CREATININE, SERUM 0.75 mg/dL (0.57-1.11); POTASSIUM 3.3 mmol/L (3.5-5.1)
[2023-01-17] MEDS: ONDANSETRON HCL INJ 2MG/ML 2ML 2 MG/ML VIAL IV PRN ×3 (08:02→20:41)
[2023-01-17] MEDS: GABAPENTIN 100 MG CAP PO SCH ×3 (08:06→20:40)
[2023-01-17] MEDS ORDERED: POTASSIUM CHLORIDE 20MEQ/100ML 200 ML IV ONE (12:15)
[2023-01-17] MEDS: CRESTOR 10MG PO SCH (20:41)
[2023-01-17] MEDS: ALPRAZOLAM 0.5 MG TAB PO SCH (20:41)
[2023-01-18 01:14] VITALS: BP 108/66; PULSE 77; RESP 16; TEMP 98.8; O2SAT 97
[2023-01-18] MEDS: SODIUM CHLORIDE 0.9% 1000ML 1,000 ML IV SCH (05:09)
[2023-01-18 05:27] VITALS: BP 122/64; PULSE 74; RESP 16; TEMP 98.2; O2SAT 95
[2023-01-18] MEDS: METOCLOPRAMIDE HCL 10 MG/2ML VIAL IV SCH (05:41)
[2023-01-18 05:54] LABS: BASOPHILS % 0.3 % (0.0-1.0); EOSINOPHILS % 0.6 % (0.0-6.0); HEMATOCRIT 37.9 % (34.2-44.1); HEMOGLOBIN 12.4 g/dL (12.0-16.0); LYMPHOCYTES # (AUTO) 1.8 (1.0-3.2); LYMPHOCYTES % 27.8 % (18.0-39.1); MEAN CORPUSCULAR HGB CONC 32.7 g/dL (31-35); MEAN CORPUSCULAR VOLUME 88.8 fL (81-99); MONOCYTES # (AUTO) 0.6 (0.2-0.8); MONOCYTES % 9.5 % (4.4-11.3); NEUTROPHILS # (AUTO) 3.9 (2.1-6.9); NEUTROPHILS % 61.2 % (38.7-80.0); PLATELET COUNT 144 x10e3/uL (140-360); RED BLOOD COUNT 4.27 x10e6/uL (3.6-5.1); RED CELL DISTRIBUTION WIDTH 14.4 % (11.7-14.4)
[2023-01-18 06:11] LABS: ANION GAP 14.6 mmol/L (8-16); CALCIUM 8.3 mg/dL (8.4-10.2); CREATININE, SERUM 0.84 mg/dL (0.57-1.11); POTASSIUM 3.6 mmol/L (3.5-5.1)
[2023-01-18 07:35] VITALS: BP 114/63; PULSE 78; RESP 21; TEMP 98.3; O2SAT 98
[2023-01-18 07:56] VITALS: BP 114/63; PULSE 78; RESP 21; TEMP 98.3; O2SAT 98
[2023-01-18] MEDS ORDERED: ALPRAZOLAM 0.5 MG TAB PO SCH (09:00)
[2023-01-18] MEDS: ALPRAZOLAM 0.5 MG TAB PO SCH (09:00)
[2023-01-18] MEDS: GABAPENTIN 100 MG CAP PO SCH (09:00)
[2023-01-18] MEDS ORDERED: LOMOTIL TABLET1 EACH PO (10:26)
[2023-01-18] MEDS ORDERED: METOCLOPRAM5 MG/5 ML PO (10:26)
== END 2023-01-18 10:55 | disposition home or self-care (01) | DRG 392 ==
LOC: ER 12:19 → ERHOLD 15:02 → MED/SURG3 18:29 → OBSVTOIN 01-16 08:43
PROVIDERS: ADMIT Family Medicine; ATTEND Family Medicine
PROC: 02HV33Z Insertion of Infusion Device into Superior Vena Cava, Percutaneous Approach (ICD-10-PCS; principal; 2023-01-17)
PROC: B548ZZA Ultrasonography of Superior Vena Cava, Guidance (ICD-10-PCS; 2023-01-17)
DX: R11.2 Nausea with vomiting, unspecified (principal); N17.9 Acute kidney failure, unspecified; I10 Essential (primary) hypertension; F41.9 Anxiety disorder, unspecified; I71.40 Abdominal aortic aneurysm, without rupture, unspecified; E78.5 Hyperlipidemia, unspecified; Z79.899 Other long term (current) drug therapy; Z20.822 Contact with and (suspected) exposure to COVID-19
CPT/HCPCS: 0223U; 36415; 36569; 71045; 74177; 80048; 80053; 81001; 82550; 83690; 84484; 85025; 87086; 87186; 87205; 93005; 94799; 96360; 96361; 99284; G0378; J2270; J2405; J2550; J2765; J3480; J7030; Q0162; Q9967